=== PATIENT | male | born 1960 | race Caucasian/White ===

== ENCOUNTER 2016-11-28 20:43 | Inpatient (IN) ==
[2016-11-28] MEDS ORDERED: Ipratropium/Albuterol Neb 3 ML IH ONE (20:47)
--- NOTE | 2016-11-28 21:07 | Emergency Department Note ---
Disposition Clinical Impression: Postobstructive pneumonia, Mass of left lung, Shortness of breath, Peripheral edema Disposition: Admitted As Inpatient Condition: Fair Forms: ED Satisfaction Letter Time of Disposition: 22:34 SOB HPI - General Chief Complaint: ED Shortness of Breath/Dyspnea Stated Complaint: shortness of breath, cough Time Seen by Provider: 11/28/16 20:47 Source: EMS Limitations: no limitations Nursing Notes Reviewed: Yes Vital Signs Reviewed: Yes - History of Present Illness 56-year-old male presents emergency room for shortness of breath 6 weeks. States he has been put on 2 rounds of antibiotics one included Zithromax a few weeks ago without relief. He does have a history of COPD and smoking. He does not wear home oxygen. He was recently set up for a nebulizer at home of which she has been using periodically. He states he is developed chest pain specifically over the left anterior chest wall. He states his legs are increasing in size over the past few weeks as well. He does have a history of congestive heart failure. He denies abdominal pain. No other complaints at this time. The shortness of breath is worse with exertion. Better at rest. - Related Data Allergies Allergy/AdvReac Type Severity Reaction Status Date / Time Penicillins Allergy Difficulty Verified 11/28/16 22:07 Swallowing Constitutional: Denies: fever, chills Eyes: Reports: as per HPI ENT ED: Reports: as per HPI Cardiovascular: Reports: chest pain, edema Respiratory: Reports: cough, dyspnea, wheezes Gastrointestinal: Reports: as per HPI Genitourinary: Reports: as per HPI Musculoskeletal: Reports: as per HPI Integumentary: Reports: as per HPI Neurological: Reports: as per HPI Psychiatric: Reports: as per HPI Endocrine: Reports: as per HPI Hematological/Lymphatic: Reports: as per HPI Past Medical History - Past Medical History Medical history: Reports: arthritis, COPD, diabetes, hypertension, TIA Psychiatric history: Reports: no psych history - Social History Smoking Status: Current every day smoker Smokeless Tobacco Status: No Alcohol use: Reports: rarely Drug use: Reports: none Physical Exam - General Limitations: no limitations General appearance: alert, in no apparent distress - Head Head exam: atraumatic, normocephalic - Neck Neck exam: Present: normal inspection - Chest Chest inspection: Present: normal inspection, symmetric chest wall rise - Respiratory Respiratory exam: Present: wheezes, other (Bilateral crackles. Worse on the left side. Decreased breath sounds on the left.) - Cardiovascular Cardiovascular exam: Present: normal rhythm, tachycardia, normal heart sounds - Abdominal Exam Abdominal exam: Present: soft, Non-Tender, normal bowel sounds - Extremities Exam Extremities exam: Present: pedal edema (Bilateral, symmetrical 2+ pitting edema in the lower extremities.), joint swelling, other - Back Exam Back exam: Present: normal inspection - Neurological Exam Neurological exam: Present: alert, oriented X3 - Psychiatric Psychiatric exam: Present: normal affect, normal mood - Skin Skin exam: Present: warm, dry, intact Course Course Narrative: Patient's chest x-ray revealed a left whiteout of his left lung. Concerns obviously for post obstructive pattern. He did a CT of his chest which showed evidence of a left perihilar mass with a postobstructive pattern involving the majority of the left lung. There is multiple areas of swollen lymph nodes concerning for malignancy. I did speak with the patient about this. He thinks he has been on Zithromax and Levaquin as an outpatient. I have ordered cefepime and vancomycin. Patient will need to be admitted for further workup of this left perihilar mass Vital Signs Temperature 97.8 F 11/28/16 20:55 Pulse Rate 108 11/28/16 20:55 Respiratory Rate 20 11/28/16 20:55 Blood Pressure 118/70 11/28/16 20:55 O2 Sat by Pulse Oximetry 93 11/28/16 20:55 Temperature 97.8 F 11/28/16 20:55 Pulse Rate 108 11/28/16 20:55 Respiratory Rate 16 11/28/16 21:17 Blood Pressure 118/70 11/28/16 20:55 O2 Sat by Pulse Oximetry 90 11/28/16 21:17 Oxygen Delivery Oxygen Delivery Nasal Cannula Shortness of Breath/Dyspnea - Medical Records Medical records reviewed: Yes I reviewed the patient's medical records. - Lab Data Lab results reviewed: Yes I reviewed the patient's lab results. Result diagrams: 11/28/16 21:13 11/28/16 21:13 Lab Results 11/28/16 11/28/16 11/28/16 Range/Units 21:13 21:13 21:13 WBC 9.2 (4.3-11.1) K/mcL RBC 4.39 (4.19-5.50) M/mcL Hgb 12.9 (12.9-16.9) g/dL Hct 39.3 (37.5-50.1) % MCV 89.5 (83.0-100.0) fL MCH 29.4 (28.0-33.3) pg MCHC 32.8 (31.6-35.5) g/dL RDW 13.4 (11.5-14.5) % Plt Count 189 (140-400) K/mcL MPV 10.1 (9.4-12.4) fL Immature Gran % 0.3 (0-4) % Seg Neutrophils % 74.0 % Lymphocytes % 14.1 % Monocytes % 7.7 % Eosinophils % 3.2 % Basophils % 0.7 % Neutrophils # 6.8 (1.6-8.9) K/mcL Lymphocytes # 1.3 (0.6-4.6) K/mcL Monocytes # 0.7 (0.0-1.3) K/mcL Eosinophils # 0.3 (0.0-0.6) K/mcL Basophils # 0.1 (0.0-0.2) K/mcL PT 13.5 H (9.4-12.1) Seconds INR 1.2 APTT 26.8 (26.0-36.0) Seconds Sodium 135 L (136-145) mEq/L Potassium 4.3 (3.5-4.5) mEq/L Chloride 100 (98-109) mEq/L Carbon Dioxide 27 (19-29) mEq/L BUN 11 (8-26) mg/dL Creatinine 0.66 L (0.72-1.25) mg/dL Est GFR ( Amer) > 60 (> 60) Est GFR (Non-Af Amer) > 60 (> 60) BUN/Creatinine Ratio 17 (6-26) Glucose 110 H (70-99) mg/dL Calculated Osmolality 280 (280-300) Calcium 8.5 L (8.6-10.8) mg/dL Troponin I (0-0.03) ng/mL B-Natriuretic Peptide (0-100) pg/mL 11/28/16 11/28/16 Range/Units 21:13 21:13 WBC (4.3-11.1) K/mcL RBC (4.19-5.50) M/mcL Hgb (12.9-16.9) g/dL Hct (37.5-50.1) % MCV (83.0-100.0) fL MCH (28.0-33.3) pg MCHC (31.6-35.5) g/dL RDW (11.5-14.5) % Plt Count (140-400) K/mcL MPV (9.4-12.4) fL Immature Gran % (0-4) % Seg Neutrophils % % Lymphocytes % % Monocytes % % Eosinophils % % Basophils % % Neutrophils # (1.6-8.9) K/mcL Lymphocytes # (0.6-4.6) K/mcL Monocytes # (0.0-1.3) K/mcL Eosinophils # (0.0-0.6) K/mcL Basophils # (0.0-0.2) K/mcL PT (9.4-12.1) Seconds INR APTT (26.0-36.0) Seconds Sodium (136-145) mEq/L Potassium (3.5-4.5) mEq/L Chloride (98-109) mEq/L Carbon Dioxide (19-29) mEq/L BUN (8-26) mg/dL Creatinine (0.72-1.25) mg/dL Est GFR ( Amer) (> 60) Est GFR (Non-Af Amer) (> 60) BUN/Creatinine Ratio (6-26) Glucose (70-99) mg/dL Calculated Osmolality (280-300) Calcium (8.6-10.8) mg/dL Troponin I 0.03 (0-0.03) ng/mL B-Natriuretic Peptide 84 (0-100) pg/mL - Radiology Data Radiology results reviewed: Yes I reviewed the patient's radiology results. - EKG Data EKG attestation: Yes I reviewed and interpreted this EKG. EKG results narrative: EKG shows a rate of 106. Sinus tachycardia. Normal axis. IA interval 150. QRS 96. Corrected QT 390. No acute changes.
[2016-11-28] MEDS ORDERED: Furosemide 40 MG/4 ML VIAL IVP ONE (21:14)
[2016-11-28 21:21] LABS: Basophils # 0.1 K/mcL (0.0-0.2); Basophils % 0.7 %; Eosinophils # 0.3 K/mcL (0.0-0.6); Eosinophils % 3.2 %; Hematocrit 39.3 % (37.5-50.1); Hemoglobin 12.9 g/dL (12.9-16.9); Immature Granulocytes % 0.3 % (0-4); Lymphocytes # 1.3 K/mcL (0.6-4.6); Lymphocytes % 14.1 %; Mean Corpuscular HGB Conc 32.8 g/dL (31.6-35.5); Mean Corpuscular Hemoglobin 29.4 pg (28.0-33.3); Mean Corpuscular Volume 89.5 fL (83.0-100.0); Mean Platelet Volume 10.1 fL (9.4-12.4); Monocytes # 0.7 K/mcL (0.0-1.3); Monocytes % 7.7 %; Neutrophils # 6.8 K/mcL (1.6-8.9); Platelet Count 189 K/mcL (140-400); Red Blood Count 4.39 M/mcL (4.19-5.50); Red Cell Distribution Width 13.4 % (11.5-14.5)
[2016-11-28 21:25] LABS: INR 1.2; Prothrombin Time 13.5 Seconds (9.4-12.1)
[2016-11-28 21:27] LABS: Activated Partial Thrombo Time 26.8 Seconds (26.0-36.0)
[2016-11-28 21:34] LABS: BUN/Creatinine Ratio 17 (6-26); Blood Urea Nitrogen 11 mg/dL (8-26); Calcium 8.5 mg/dL (8.6-10.8); Carbon Dioxide 27 mEq/L (19-29); Chloride 100 mEq/L (98-109); Glucose 110 mg/dL (70-99); Osmolality,Calculated 280 (280-300); Potassium 4.3 mEq/L (3.5-4.5); Sodium 135 mEq/L (136-145); eGFR For African Americans > 60 (> 60); eGFR For Non-African Americans > 60 (> 60)
[2016-11-28] MEDS ORDERED: Vancomycin 1,000 MG in D5% in Water 250 ML IVPB ONE (22:30)
[2016-11-29] MEDS ORDERED: Cefepime HCl 2,000 MG in D5% in Water (Mini-Bag+) 100 ML IVPB SCH ×3 (00:08→08:00)
[2016-11-29] MEDS ORDERED: Naloxone 0.4 MG/ML INJ IVP PRN (00:24)
[2016-11-29] MEDS ORDERED: Ondansetron ODT 4 MG TAB.RAPDIS SL PRN (00:24)
[2016-11-29] MEDS ORDERED: *HR* Morphine 2 MG/ML SYRINGE IVP PRN (00:24)
[2016-11-29] MEDS ORDERED: D5% in Water 1,000 ML IVC PRN (00:26)
[2016-11-29] MEDS ORDERED: Dextrose Gel 15 GM PO PRN ×2 (00:26)
[2016-11-29] MEDS ORDERED: *HR* Dextrose 50 % in Water (Syg) 50 ML SYRINGE IVP PRN (00:26)
--- NOTE | 2016-11-29 00:36 | Internal Med History&Physical ---
<Toan Ye - Last Filed: 11/29/16 00:33> Date of Encounter: 11/29/16 Time of Encounter: 23:50 Assessment and Plan (1) Postobstructive pneumonia Current visit: Yes Status: Acute Patient presented to the emergency department with shortness of breath and had been treated 2-3 times in the outpatient setting for pneumonia with at least 2 rounds of antibiotics. -CT of the chest performed in the emergency department demonstrates large hilar mass on the left side causing postobstructive pulmonary findings and hilar adenopathy. - Patient presents with dyspnea and requires 2 L of nasal Oxygen. Not oxygen dependent at home. Plan: - Admit to general medical floor - Continue vancomycin and cefepime for antibiotic coverage - Continue breathing treatments and treatment of underlying COPD - Continue nasal cannula oxygen and wean as tolerated - Consult to pulmonology for evaluation of hilar mass. (2) Mass of left lung Current visit: Yes Status: Acute Left hilar lung mass causing obstructive findings on chest CT with hilar adenopathy. Highly suspicious for cancer with likely malignancy given that the patient has a 40+ pack year of smoking and his current every day smoker. - Patient mentions that there was a spot identified on his brain with an MRI performed in June. No results available at this time for evaluation Plan: - Consult to pulmonology, will likely need bronchoscopy for needle biopsies. - CT of the chest, CT with contrast of brain, abdomen and pelvis. - (3) Type 2 diabetes mellitus Current visit: Yes Status: Acute Known type II diabetic. Plan: - Before meals at bedtime glucose checks - Sliding scale insulin - Diabetic diet when able to eat, currently nothing by mouth. Qualifiers: Qualified Code(s): E11.9 - Type 2 diabetes mellitus without complications (4) Peripheral edema Current visit: Yes Status: Acute Patient has new findings of bilateral pedal edema. This may be due to vascular obstruction from lung mass. Also patient has high probability for pulmonary embolism. Plan: - Echocardiogram for evaluation for right heart strain and ejection fraction - CT of the chest for evaluation for possible pulmonary embolism - Low sodium diet (5) COPD (chronic obstructive pulmonary disease) Current visit: Yes Status: Acute Known history of COPD. Continue home inhalers. Qualifiers: COPD type: COPD with acute lower respiratory infection Qualified Code(s): J44.0 - Chronic obstructive pulmonary disease with acute lower respiratory infection (6) Tobacco abuse Current visit: Yes Status: Acute Current every day smoker, 40+ pack year history. Nicotine patch when necessary. (7) At high risk for pulmonary embolism Current visit: Yes Status: Acute Patient is at high risk for pulmonary embolism with left upper lobe lung mass, shortness of breath, tachycardia, decreased blood pressure, CT of the chest demonstrating enlarged pulmonary vasculature. Wells score of 5 Plan: - CTA of the chest - Heparin Drip until PE ruled out (8) DVT prophylaxis Current visit: Yes Status: Acute Patient on heparin drip. Internal Medicine - H&P: HPI Chief complaint: shortness of breath Admitted From: Emergency Dept History of present illness: Mr. Miller is a 56 year old male significant past medical history of tobacco abuse, COPD, type 2 diabetes and hypertension presented to the emergency department today with continued shortness of breath after being treated for pneumonia twice in the outpatient setting. Mr. Miller says that he has been short of breath and coughing for roughly 1 month. He presented to his primary care provider who started him on antibiotics and steroids for treatment of his symptoms without resolution. He presented for follow-up and then presented to the urgent care just recently where he had a chest x-ray which demonstrated left -sided pneumonia and a lung mass. The patient said his antibiotics were not improving his symptoms he continued to feel very short of breath uses inhalers his shortness of breath but improved but he became ever more short of breath with activity. He feels that his heart is racing, he has been continually coughing and his motivation has decreased significantly. He is a chronic every day smoker and said that he has not even been inhaling only puffing on his cigarettes. He denies any fevers, chills or sweating, abdominal pain nausea vomiting diarrhea or constipation. He has noticed swelling in his bilateral lower extremities mainly around the ankles over the last week. He says that his mother who lives with them noticed that his face is been swelling. He understands the findings on the CT of the chest this evening in the emergency department and said that if it is cancer and there was no improvement that he would continue smoking but if he has a chance to quit smoking. He did provide a useful piece of information saying that he was having headaches since the start of the year and was fitted for hearing aids and at that time he mentioned it to the physician who ordered an MRI of the brain and noticed a spot on his brain. He has had some substernal chest burning which is related with acid reflux over the last 2-3 weeks. He said that he has been taking Maalox frequently throughout the day. Past Med Surg Social Fam HX - Past Medical History Medical history: arthritis, COPD, diabetes, hypertension, TIA Psychiatric history: no psych history - Past Surgical History Surgical History: appendectomy - Social History Smoking Status: Current every day smoker Smokeless Tobacco Status: No Alcohol use: rarely Drug use: none - Family History Father Living Status: Hx Family Neurologic Disorders: Yes (Stroke) Hx Family Psychosocial Disorders: Yes (Alcoholic) Internal Medicine - H&P: Meds Adalimumab [Humira Psoriasis] 40 mg SQ Q2W 11/28/16 [History] Albuterol Sulfate [Albuterol Inhaler] 2 puff IH Q4H PRN 11/28/16 [History] Allopurinol [Zyloprim 300 MG] 300 mg PO DAILY 11/28/16 [History] Aspirin 325 mg PO DAILY 11/28/16 [History] Carvedilol [Coreg] 6.25 mg PO BIDWM 11/28/16 [History] Finasteride [Proscar] 5 mg PO DAILY 11/28/16 [History] Fluticasone Propionate Nasal [Flonase] 50 mcg NS BID 11/28/16 [History] Hydroxychloroquine [Plaquenuil] 200 mg PO DAILY 11/28/16 [History] Insulin Glargine,Hum.rec.anlog [Toujeo Solostar] 50 units SQ QPM 11/28/16 [ History] Ipratropium/Albuterol Neb [Duoneb] 3 ml IH Q6HR 11/28/16 [History] Leflunomide [Arava] 20 mg PO DAILY 11/28/16 [History] Lisinopril [Zestril] 20 mg PO BID 11/28/16 [History] Metformin HCl [Glucophage] 1,000 mg PO BID 11/28/16 [History] Simvastatin [Zocor] 20 mg PO HS 11/28/16 [History] Umeclidinium Brm/Vilanterol Tr [Anoro Ellipta 62.5-25 Mcg INH] 1 each IH DAILY 11/28/16 [History] amLODIPine [Norvasc] 5 mg PO DAILY 11/28/16 [History] Allergies Penicillins Allergy (Verified 11/28/16 22:07) Difficulty Swallowing All Systems PM: A 10-system review of systems was performed and is negative for pertinent findings except as documented above in the HPI. - Constitutional Constitutional: fatigue, malaise, no chills, no fever(s), no night sweats - EENT Eyes: no change in vision, no discharge, no pain, no photophobia Ears: decreased hearing, no ear discharge, no ear pain, no tinnitus Nose, mouth and throat: other (acial swelling), no dysphagia, no nasal discharge , no neck pain, no sore throat - Cardiovascular Cardiovascular ROS IM: dyspnea, dyspnea on exertion, edema (Bilateral ankles), no chest pain, no diaphoresis, no lightheadedness, no palpitations, no syncope - Respiratory Respiratory: cough, dyspnea, dyspnea on exertion, wheezing, no hemoptysis, no excessive phlegm production - Gastrointestinal Gastrointestinal: heartburn, no abdominal pain, no diarrhea, no hematemesis, no hematochezia, no melena, no nausea, no vomiting - Musculoskeletal Musculoskeletal ROS IM: no numbness, no tingling - Integumentary Integumentary IM: no rash, no unusual bruising - Neurological Neurological ROS: no confusion, no convulsions, no focal weakness, no numbness, no tingling, no tremor(s) - Hematologic/Lymphatic Hematologic/Lymphatic: no easy bruising - Constitutional Vitals: Temp Pulse Resp BP Pulse Ox 97.8 F 103 22 99/67 90 11/28/16 20:55 11/28/16 22:33 11/29/16 00:07 11/29/16 00:07 11/28/16 22:33 General appearance: Present: A&O X 3 Exam: General: Patient alert, awake, oriented 3, interactive, in no acute distress HEENT: Diffuse facial swelling, facial redness, atraumatic, pupils equal reactive to light, nasal cavity patent and open septum median position, oral mucosa moist, uvula midline, neck supple trachea midline, there is left neck and supraclavicular fullness no thyromegaly. Chest: Symmetric bilateral correlating with respiratory effort, effort nonlabored. Cardiac: Regular rate and rhythm, positive S1 and S2. no bruits appreciated bilateral carotids, Radial pulses 2+ bilateral, posterior tibial and dorsal pedal pulses 2+ bilateral. Respiratory: Diminished breath sounds in left upper lung field, rhonchi and expiratory wheezing in the left mid to lower lung levine, diffuse expiratory wheezing throughout bilateral lungs Abdomen: Soft, nontender, positive bowel sounds, no palpable masses appreciated on examination Extremities: Symmetric bilateral, bilateral lower extremities with trace pedal edema patient moving all 4 extremities spontaneously. Neurologic: No focal deficits appreciated on examination. Face symmetric, muscle strength symmetric bilateral upper and lower extremities. Internal Med - H&P Results - Labs CBC & Chem 7: 11/28/16 21:13 11/28/16 21:13 <Steve Harkins - Last Filed: 11/29/16 07:28> Date of Encounter: 11/29/16 Internal Medicine - H&P: HPI History of present illness: Mr. Miller is a 56 year old male All Systems PM: A 10-system review of systems was performed and is negative for pertinent findings except as documented above in the HPI. - Constitutional Vitals: Temp Pulse Resp BP Pulse Ox 98.3 F 95 18 97/60 93 11/29/16 06:58 11/29/16 06:58 11/29/16 06:58 11/29/16 06:58 11/29/16 06:58 Internal Med - H&P Results - Labs CBC & Chem 7: 11/29/16 02:00 11/29/16 02:00 Labs: Short CBC 11/29/16 Range/Units 02:00 WBC 8.0 (4.3-11.1) K/mcL Hgb 12.8 L (12.9-16.9) g/dL Hct 39.1 (37.5-50.1) % Plt Count 182 (140-400) K/mcL Neutrophils # 5.6 (1.6-8.9) K/mcL BMP 11/29/16 02:00 Sodium 136 Potassium 4.1 Chloride 99 Carbon Dioxide 29 BUN 11 Creatinine 0.71 L Glucose 113 H Calcium 8.5 L Cardiac Enzymes 11/29/16 Range/Units 02:00 Troponin I 0.02 (0-0.03) ng/mL Liver Function 11/29/16 Range/Units 02:00 Total Bilirubin 0.5 (0.2-1.2) mg/dL AST 20 (5-34) Units/L ALT 20 (0-55) Units/L Alkaline Phosphatase 56 (38-126) Units/L Albumin 2.5 L (3.5-5.0) g/dL - Impressions ITS Impressions Chest CTA 11/29/16 00:18 IMPRESSION: No evidence of pulmonary embolism. Dense masslike consolidation throughout the left lung appears slightly worse than on the previous exam. This is compatible with the history of lung cancer combined with postobstructive pneumonitis. There is associated mediastinal lymphadenopathy. Continued CT surveillance recommended. D/ / Nehemias Aldrich MD / Nehemias Aldrich MD Interpreting Provider: Nehemias Aldrich MD Abdomen/Pelvis CT 11/29/16 00:19 IMPRESSION: 1. No acute intra-abdominal or intrapelvic process. 2. No convincing evidence of intra-abdominal or intrapelvic metastatic disease. 3. Dense left basilar consolidation better visualized on the dedicated chest CT. Please refer to the chest CT report for further details. D/ / Nehemias Aldrich MD / Nehemias Aldrich MD Interpreting Provider: Nehemias Aldrich MD Head CT 11/29/16 00:19 IMPRESSION: No acute intracranial abnormality. Specifically, no CT scan evidence of intracranial metastatic disease. MRI is more sensitive and specific for detection of subtle metastatic deposits if clinically warranted. D/ / Nehemias Aldrich MD / Nehemias Aldrich MD Interpreting Provider: Nehemias Aldrich MD - Attending Attestation I examined this patient and my medical decision-making was reviewed with the Resident Physician. I agree with the documented findings, disposition and treatment plan as described
[2016-11-29] MEDS ORDERED: Vancomycin 1,750 MG in D5% in Water 250 ML IVPB SCH (01:00)
[2016-11-29] MEDS: 0.9 % Sodium Chloride 1,000 ML IVC SCH ×3 (01:50→15:42)
[2016-11-29 02:27] LABS: Basophils # 0.1 K/mcL (0.0-0.2); Eosinophils # 0.3 K/mcL (0.0-0.6); Eosinophils % 3.9 %; Hematocrit 39.1 % (37.5-50.1); Hemoglobin 12.8 g/dL (12.9-16.9); Immature Granulocytes % 0.6 % (0-4); Immature Platelets 4.1 % (1.1-6.1); Lymphocytes # 1.2 K/mcL (0.6-4.6); Lymphocytes % 15.5 %; Mean Corpuscular HGB Conc 32.7 g/dL (31.6-35.5); Mean Corpuscular Hemoglobin 29.4 pg (28.0-33.3); Mean Corpuscular Volume 89.9 fL (83.0-100.0); Mean Platelet Volume 10.4 fL (9.4-12.4); Monocytes # 0.7 K/mcL (0.0-1.3); Monocytes % 8.5 %; Neutrophils # 5.6 K/mcL (1.6-8.9); Platelet Count 182 K/mcL (140-400); Red Blood Count 4.35 M/mcL (4.19-5.50); Red Cell Distribution Width 13.4 % (11.5-14.5); Segmented Neutrophils % 70.5 %
[2016-11-29 02:32] LABS: INR 1.2; Prothrombin Time 13.2 Seconds (9.4-12.1)
[2016-11-29 02:35] LABS: Activated Partial Thrombo Time 26.8 Seconds (26.0-36.0)
[2016-11-29 02:46] LABS: Alanine Aminotransferase 20 Units/L (0-55); Albumin 2.5 g/dL (3.5-5.0); Albumin/Globulin Ratio 0.6 (1.1-2.2); Alkaline Phosphatase 56 Units/L (38-126); Aspartate Amino Transferase 20 Units/L (5-34); BUN/Creatinine Ratio 15 (6-26); Bilirubin,Total 0.5 mg/dL (0.2-1.2); Blood Urea Nitrogen 11 mg/dL (8-26); Calcium 8.5 mg/dL (8.6-10.8); Carbon Dioxide 29 mEq/L (19-29); Chloride 99 mEq/L (98-109); Chol/HDL Ratio 2.5 (0-4.9); Cholesterol 105 mg/dL (< 200); Globulin 4.1 g/dL (2.4-3.5); Glucose 113 mg/dL (70-99); HDL Cholesterol 42 mg/dL (40-59); LDL Cholesterol,Calculated 46 mg/dL (0-99); Magnesium 1.7 mg/dL (1.6-2.6); Osmolality,Calculated 282 (280-300); Phosphorous 3.2 mg/dL (2.3-4.7); Potassium 4.1 mEq/L (3.5-4.5); Sodium 136 mEq/L (136-145); Total Protein 6.6 g/dL (6.0-8.3); Triglycerides 86 mg/dL (< 150); eGFR For African Americans > 60 (> 60); eGFR For Non-African Americans > 60 (> 60)
[2016-11-29] MEDS ORDERED: Ipratropium/Albuterol Neb 3 ML ONE (03:44)
[2016-11-29] MEDS: Ipratropium/Albuterol Neb 3 ML IH SCH ×5 (03:52→22:42)
[2016-11-29] MEDS: *HR* Heparin 5,000 UNIT/ML VIAL SQ SCH ×3 (06:12→21:27)
--- NOTE | 2016-11-29 06:33 | Pulmonology Consult Note ---
Date of Encounter: 11/29/16 Time of Encounter: 06:33 Assessment and Plan (1) Mass of left lung Current Visit: Yes Status: Acute Impression: 56-year-old gentleman who is presenting with recurrent pneumonia with evidence of large lung mass likely postobstructive pneumonia and COPD exacerbation. From standpoint of lung mass lung cancer remains high in the differential alternatively this could represent infection although much less likely. Currently immunosuppression and tobacco abuse put him at increased risk for development of primary lung malignancy thus far no evidence of metastatic disease but there is a questionable report of an MRI that was performed with a spot in the brain per the patient we should attempt to obtain this report and see if it is consistent with metastatic disease. We will plan to proceed with bronchoscopy with endobronchial ultrasound for further clarification of airway anatomy evidence of endobronchial lesions and fine-needle aspiration of lung mass if nothing endobronchially can be sampled. This will also clarify if patient would be candidate for interventional procedure for alleviation of obstruction. The obstruction appears to have led to recurrent PNA with resultant COPD exacerbation. I have also counseled the patient on the need for smoking cessation Recommendations: NPO at OH for Bronch tomorrow with anesthesia. Timing unknown at this time. CBC/ CMP/INR/ECG if not done Cont ABx for at least 7 days IV Solu-Medrol 40 mg 3 times a day which can be transitioned to enteral prednisone over the next 24-48 hours. Continue bronchodilators I would schedule Symbicort 2 puffs twice daily (160/4.5 ) I have encouraged tobacco cessation and Nicotine replacement in the form of patch Outpatient polysomnogram Patient will need either walking pulse oximetry study or overnight oximetry study prior to discharge to evaluate for the need of supplemental oxygen DVT prophylaxis with low molecular weight heparin unless other contraindication Thank you for the consult we will continue to follow (2) COPD with acute exacerbation Current Visit: Yes Status: Acute (3) Postobstructive pneumonia Current Visit: Yes Status: Acute (4) COPD (chronic obstructive pulmonary disease) Current Visit: Yes Status: Acute Qualifiers: COPD type: COPD with acute lower respiratory infection Qualified Code(s): J44.0 - Chronic obstructive pulmonary disease with acute lower respiratory infection (5) Tobacco abuse Current Visit: Yes Status: Acute (6) DVT prophylaxis Current Visit: Yes Status: Acute History of Present Illness Consult date: 11/29/16 Requesting physician: Toan Ye Reason for consult: lung mass Chief complaint: Shortness of Breath History of present illness: This is a very pleasant 56-year-old gentleman with a past medical history of COPD rheumatoid arthritis on amiodarone therapy including Humira and hydroxychloroquine and Arava who presented for shortness of breath. He states that he has been treated for pneumonia twice over the last month and despite antimicrobial therapy symptoms have returned including nonproductive cough increased shortness of breath wheezing and fatigue. He has had one M episode of hemoptysis over the last month denies significant weight loss has frequent night sweats but has for many years. As part of outpatient patient workup a chest x-ray was performed which was concerning for left-sided pneumonia and possible left-sided mass follow-up CT scan was notable for a large left sided hilar lung mass with compression atelectasis and possible postobstructive pneumonia on this admission because of tachycardia and hypoxia he was sent for a CT angiogram which was negative for filling defect but was notable for solar findings as noncontrasted CT scan of the thorax performed a few days earlier. He has been started on broad-spectrum antimicrobials steroids and bronchodilators. Further workup including CT of the abdomen and pelvis and CT of the head were not suggestive of metastatic disease He is been diagnosed with COPD and was using twice daily Qvar with good results along with a short acting beta agonist as needed he was recently switched over to Asmanex and this appears to be less effective for antral symptomatology he does have a strong component of seasonal allergy which exacerbates his breathing difficulty. He endorses poor sleep quality efficiency daytime hypersomnolence frequent napping he is never gone for a formal sleep evaluationHe is a long-time smoker since the age of 13 about 1 pack a day. 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 He does not keep any exotic pets he has not traveled recently Past [facility] HX - Past Medical History Medical history: arthritis, COPD, diabetes, hypertension, TIA Psychiatric history: no psych history - Past Surgical History Surgical History: appendectomy - Social History Smoking Status: Current every day smoker Smokeless Tobacco Status: No Alcohol use: rarely Drug use: none - Family History Father Living Status: Hx Family Neurologic Disorders: Yes (Stroke) Hx Family Psychosocial Disorders: Yes (Alcoholic) Medications and Allergies Adalimumab [Humira Psoriasis] 40 mg SQ Q2W 11/28/16 [History] Albuterol Sulfate [Albuterol Inhaler] 2 puff IH Q4H PRN 11/28/16 [History] Allopurinol [Zyloprim 300 MG] 300 mg PO DAILY 11/28/16 [History] Aspirin 325 mg PO DAILY 11/28/16 [History] Carvedilol [Coreg] 6.25 mg PO BIDWM 11/28/16 [History] Finasteride [Proscar] 5 mg PO DAILY 11/28/16 [History] Fluticasone Propionate Nasal [Flonase] 50 mcg NS BID 11/28/16 [History] Hydroxychloroquine [Plaquenuil] 200 mg PO DAILY 11/28/16 [History] Insulin Glargine,Hum.rec.anlog [Toujeo Solostar] 50 units SQ QPM 11/28/16 [ History] Ipratropium/Albuterol Neb [Duoneb] 3 ml IH Q6HR 11/28/16 [History] Leflunomide [Arava] 20 mg PO DAILY 11/28/16 [History] Lisinopril [Zestril] 20 mg PO BID 11/28/16 [History] Metformin HCl [Glucophage] 1,000 mg PO BID 11/28/16 [History] Simvastatin [Zocor] 20 mg PO HS 11/28/16 [History] Umeclidinium Brm/Vilanterol Tr [Anoro Ellipta 62.5-25 Mcg INH] 1 each IH DAILY 11/28/16 [History] amLODIPine [Norvasc] 5 mg PO DAILY 11/28/16 [History] Allergies Penicillins Allergy (Verified 11/28/16 22:07) Difficulty Swallowing All Systems: A 10-system review of systems was performed and is negative for pertinent findings except as documented above in the HPI. Physical Examination Vital Signs: Vital Signs, Last 4 Hours Temp Pulse Resp BP Pulse Ox 11/29/16 03:57 18 92 11/29/16 03:52 98.7 F 102 18 109/67 93 General appearance: no acute distress Eyes: nonicteric ENT: oropharynx moist Mallampati (class): 2 Neck: supple Effort: mildly labored Inspection: normal Auscultation: bilateral: diminished breath sounds, wheezes (Bilateral expiratory wheeze with prolonged expiratory phase), rhonchi (Scattered rhonchi in all lung levine) Cardiovascular: regular rate and rhythm Gastrointestinal: normoactive bowel sounds, non-tender Integumentary: normal Extremities: edema (Trace nonpitting lower extremity edema) Musculoskeletal: no deformities normal mental status, non-focal exam mood appropriate Results - Laboratory Findings CBC and BMP: 11/29/16 02:00 11/29/16 02:00 PT/INR, D-dimer PT 13.2 Seconds (9.4-12.1) H 11/29/16 02:00 Abnormal lab findings: Abnormal lab results Hgb 12.8 g/dL (12.9-16.9) L 11/29/16 02:00 PT 13.2 Seconds (9.4-12.1) H 11/29/16 02:00 Creatinine 0.71 mg/dL (0.72-1.25) L 11/29/16 02:00 Glucose 113 mg/dL (70-99) H 11/29/16 02:00 POC Glucose 112 (58-89) H 11/29/16 05:41 Calcium 8.5 mg/dL (8.6-10.8) L 11/29/16 02:00 Albumin 2.5 g/dL (3.5-5.0) L 11/29/16 02:00 Globulin 4.1 g/dL (2.4-3.5) H 11/29/16 02:00 Albumin/Globulin Ratio 0.6 (1.1-2.2) L 11/29/16 02:00 - Diagnostic Findings Chest x-ray: report reviewed, image reviewed CT scan - chest: report reviewed, image reviewed - Clinical Findings Intake & Output: Intake & Output 11/28/16 11/28/16 11/29/16 15:59 23:59 07:59 Intake Total 100 / 100 Output Total 0 / 0 Balance 100 / 100 Weight 121.9 kg Consult Discharge Plan - Plan Referrals: Dionisio Dominique DO [Primary Care Provider] -
[2016-11-29] MEDS ORDERED: Mag Hydrox/Al Hydrox/Simeth 30 ML UDC PO PRN (07:53)
[2016-11-29] MEDS: Pantoprazole 40 MG VIAL IVP SCH (08:02)
[2016-11-29] MEDS: amLODIPine 5 MG TABLET PO SCH ×2 (08:03→08:32)
[2016-11-29] MEDS: Aspirin 325 MG TABLET PO SCH (08:03)
[2016-11-29] MEDS: Finasteride 5 MG TABLET PO SCH (08:03)
[2016-11-29] MEDS: Insulin LISPRO 300 UNITS/3 ML VIAL SQ SCH ×3 (08:04→17:01)
[2016-11-29] MEDS: Fluticasone Propionate Nasal 50 MCG/SPRAY BOTTLE NS SCH ×2 (08:07→21:26)
[2016-11-29] MEDS: Acetaminophen 325 MG TABLET PO PRN (08:17)
[2016-11-29] MEDS ORDERED: Vancomycin 1,750 MG in D5% in Water 500 ML IVPB SCH (09:00)
[2016-11-29] MEDS ORDERED: (Leflunomide [Arava] 20 MG) PO SCH (09:00)
[2016-11-29] MEDS: Budesonide/Formoterol 160/4.5 MDI IH SCH ×2 (10:29→22:42)
[2016-11-29] MEDS: MethylPREDNISolone 40 MG/ML VIAL IVP SCH ×2 (12:16→20:00)
--- NOTE | 2016-11-29 12:20 | Electrocardiograph Report ---
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
[2016-11-29] MEDS: Insulin DETEMIR 100 UNIT/ML X5UNITS SQ SCH ×2 (13:38→21:27)
[2016-11-29] MEDS: Levofloxacin 750 MG/150 ML 750 MG/150 ML BAG IVPB SCH (13:39)
[2016-11-29] MEDS ORDERED: Aminoglycoside Consult 1 EACH MC ONE (15:03)
--- NOTE | 2016-11-29 15:44 | Internal Med Progress Note ---
Date of Encounter: 11/29/16 Time of Encounter: 15:42 - Assessment and plan (1) COPD with acute exacerbation Current Visit: Yes Status: Acute Assessment and plan: Acute COPD exacerbation secondary to postobstructive pneumonia Stop vancomycin and cefepime Start Levaquin, continue Solu-Medrol IV for COPD exacerbation Oxygen therapy Bronchoscopy (2) Mass of left lung Current Visit: Yes Status: Acute Assessment and plan: -CT of the chest performed in the emergency department demonstrates large hilar mass on the left side causing postobstructive pulmonary findings and hilar adenopathy. Pulmonary service consulted, will keep nothing by mouth for bronchoscopy tomorrow (3) Postobstructive pneumonia Current Visit: Yes Status: Acute Assessment and plan: As stated above (4) Type 2 diabetes mellitus Current Visit: Yes Status: Acute Assessment and plan: Continue insulin sliding scale Qualifiers: Diabetes mellitus complication status: without complication Diabetes mellitus fdc insulin use: with intermediate frame tender use Qualified Code(s): E11.9 - Type 2 diabetes mellitus without complications; Z79.4 - retirement (current) use of insulin (5) Tobacco abuse Current Visit: Yes Status: Acute Assessment and plan: Smoking cessation counseling. Nicotine patch offered (6) Rheumatoid arthritis Current Visit: Yes Status: Acute Assessment and plan: Hold Humira, Plaquenil, Areva Qualifiers: Rheumatoid arthritis location: unspecified site Rheumatoid factor presence : unspecified presence Qualified Code(s): M06.9 - Rheumatoid arthritis, unspecified - Subjective Interval history: Physical Lesher of breath, complaining of yellowish phlegm production, denies any abdominal pain, no dysuria, no chest pain or fever - Constitutional Vitals: Temp Pulse Resp BP Pulse Ox 97.9 F 98 20 103/67 94 11/29/16 14:57 11/29/16 14:57 11/29/16 14:57 11/29/16 14:57 11/29/16 14:57 General appearance: Present: A&O X 3 - Head Head exam: Present: atraumatic, normocephalic - Eye Eye exam: Present: PERRL, conjuntiva pink, sclera anicteric Pupils: Present: PERRL - Neck Neck exam general surgery: Present: supple, trachea midline. Absent: lymphadenopathy - Respiratory Respiratory exam: Present: CTAB, wheezes (Minimal wheezing). Absent: accessory muscle use, rales, rhonchi - Cardiovascular Cardiovascular exam: Present: RRR, +S1, +S2. Absent: diastolic murmur, gallop, rubs, systolic murmur - GI/Abdominal GI/Abdominal exam: Present: normal bowel sounds, soft, no peritoneal signs. Absent: distended, tenderness - Extremities Exam Extremities exam: Present: warm, radial pulses palpable and symetrical. Absent : calf tenderness, cyanotic, pedal edema - Neurological Exam Neurological exam: Present: CN II-XII intact, oriented X3, no focal deficits. Absent: pronater drift, facial droop, speech deficit - Skin Skin exam: Present: dry, intact Internal Medicine: Result - Labs CBC & Chem 7: 11/29/16 02:00 11/29/16 02:00 - ABG Interpretation ABG results: PT/INR, D-dimer PT 13.2 Seconds (9.4-12.1) H 11/29/16 02:00 Consult Discharge Plan - Plan Referrals: Dionisio Dominique DO [Primary Care Provider] -
[2016-11-29] MEDS: Nicotine 14 MG PATCH.TD24 TD SCH (17:24)
[2016-11-29] MEDS ORDERED: Insulin LISPRO 300 UNITS/3 ML VIAL SQ SCH (21:00)
[2016-11-30] MEDS: 0.9 % Sodium Chloride 1,000 ML IVC SCH (01:55)
[2016-11-30] MEDS: MethylPREDNISolone 40 MG/ML VIAL IVP SCH ×2 (03:42→15:05)
[2016-11-30] MEDS: Ipratropium/Albuterol Neb 3 ML IH SCH ×3 (03:56→16:31)
[2016-11-30 05:03] LABS: Hematocrit 38.7 % (37.5-50.1); Hemoglobin 12.3 g/dL (12.9-16.9); Mean Corpuscular HGB Conc 31.8 g/dL (31.6-35.5); Mean Corpuscular Hemoglobin 28.7 pg (28.0-33.3); Mean Corpuscular Volume 90.4 fL (83.0-100.0); Mean Platelet Volume 10.6 fL (9.4-12.4); Platelet Count 172 K/mcL (140-400); Red Blood Count 4.28 M/mcL (4.19-5.50); Red Cell Distribution Width 13.1 % (11.5-14.5)
[2016-11-30 05:17] LABS: BUN/Creatinine Ratio 16 (6-26); Blood Urea Nitrogen 12 mg/dL (8-26); Calcium 8.2 mg/dL (8.6-10.8); Carbon Dioxide 29 mEq/L (19-29); Chloride 102 mEq/L (98-109); Glucose 255 mg/dL (70-99); Osmolality,Calculated 290 (280-300); Potassium 4.6 mEq/L (3.5-4.5); Sodium 136 mEq/L (136-145); eGFR For African Americans > 60 (> 60); eGFR For Non-African Americans > 60 (> 60)
[2016-11-30] MEDS: *HR* Heparin 5,000 UNIT/ML VIAL SQ SCH ×2 (05:49→15:40)
[2016-11-30] MEDS: Fluticasone Propionate Nasal 50 MCG/SPRAY BOTTLE NS SCH (08:55)
[2016-11-30] MEDS ORDERED: 0.9 % Sodium Chloride 1,000 ML IVC SCH (08:55)
[2016-11-30] MEDS: Levofloxacin 750 MG/150 ML 750 MG/150 ML BAG IVPB SCH (08:56)
[2016-11-30] MEDS: Pantoprazole 40 MG VIAL IVP SCH (08:56)
--- NOTE | 2016-11-30 08:58 | Internal Med Progress Note ---
Date of Encounter: 11/30/16 Time of Encounter: 08:56 - Assessment and plan (1) COPD with acute exacerbation Current Visit: Yes Status: Acute Assessment and plan: Acute COPD exacerbation secondary to postobstructive pneumonia Stopped vancomycin and cefepime Continue Levaquin day 2, continue Solu-Medrol IV for COPD exacerbation Oxygen therapy Bronchoscopy scheduled (2) Mass of left lung Current Visit: Yes Status: Acute Assessment and plan: -CT of the chest performed in the emergency department demonstrates large hilar mass on the left side causing postobstructive pulmonary findings and hilar adenopathy. 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 Nicotine patch offered (6) Rheumatoid arthritis Current Visit: Yes Status: Acute Assessment and plan: Hold Humira, Plaquenil, Areva Qualifiers: Rheumatoid arthritis location: unspecified site Rheumatoid factor presence : unspecified presence Qualified Code(s): M06.9 - Rheumatoid arthritis, unspecified - Subjective Interval history: Feeling less short of breath, complaining of yellowish phlegm production, denies any abdominal pain, no dysuria, no chest pain or fever - Constitutional Vitals: Temp Pulse Resp BP Pulse Ox 97.9 F 94 17 122/74 95 11/30/16 06:54 11/30/16 06:54 11/30/16 06:54 11/30/16 06:54 11/30/16 06:54 General appearance: Present: A&O X 3 - Head Head exam: Present: atraumatic, normocephalic - Eye Eye exam: Present: PERRL, conjuntiva pink, sclera anicteric Pupils: Present: PERRL - Neck Neck exam general surgery: Present: supple, trachea midline. Absent: lymphadenopathy - Respiratory Respiratory exam: Present: decreased breath sounds (Blunted breath sounds mainly on the left base with diffuse wheezing), CTAB, wheezes. Absent: accessory muscle use, rales, rhonchi - Cardiovascular Cardiovascular exam: Present: RRR, +S1, +S2. Absent: diastolic murmur, gallop, rubs, systolic murmur - GI/Abdominal GI/Abdominal exam: Present: normal bowel sounds, soft, no peritoneal signs. Absent: distended, tenderness - Extremities Exam Extremities exam: Present: warm, radial pulses palpable and symetrical. Absent : calf tenderness, cyanotic, pedal edema - Neurological Exam Neurological exam: Present: CN II-XII intact, oriented X3, no focal deficits. Absent: pronater drift, facial droop, speech deficit - Skin Skin exam: Present: dry, intact Internal Medicine: Result - Labs CBC & Chem 7: 11/30/16 04:11 11/30/16 04:11 Labs: Short CBC 11/30/16 Range/Units 04:11 WBC 4.8 (4.3-11.1) K/mcL Hgb 12.3 L (12.9-16.9) g/dL Hct 38.7 (37.5-50.1) % Plt Count 172 (140-400) K/mcL BMP 11/30/16 04:11 Sodium 136 Potassium 4.6 H Chloride 102 Carbon Dioxide 29 BUN 12 Creatinine 0.73 Glucose 255 H Calcium 8.2 L - ABG Interpretation ABG results: PT/INR, D-dimer PT 13.2 Seconds (9.4-12.1) H 11/29/16 02:00 Consult Discharge Plan - Plan Referrals: Dionisio Dominique DO [Primary Care Provider] -
[2016-11-30] MEDS: Insulin DETEMIR 100 UNIT/ML X5UNITS SQ SCH (09:01)
[2016-11-30] MEDS: Insulin LISPRO 300 UNITS/3 ML VIAL SQ SCH ×2 (09:25→13:27)
--- NOTE | 2016-11-30 10:52 | Pre-Sedation Evaluation ---
Pre-sedation evaluation - Pre-sedation checklist Date of procedure: 11/30/16 Procedure: Bronchoscopy Recent Vitals: Last Vital Signs Temp 97.9 F 11/30/16 06:54 Pulse 94 11/30/16 06:54 Resp 17 11/30/16 06:54 BP 122/74 11/30/16 06:54 Pulse Ox 95 11/30/16 06:54 H&P (including ROS) documented in medical record: Yes Previous reaction to sedatives/anesthetics: No Dietary Status: NPO after Midnight Airway Assessment: Patient can open mouth completely, TMJ function normal Dentition: No loose teeth or bridges Possible difficult airway: Yes If Yes;: Morbid obesity, Enlarged neck circumference, short neck ASA Classification *see protocol: CLASS III-Severe systemic disease Plan of Care: Pt appropriate candidate for procedure/moderate/conscious sedation , Risks/benefits of procedure/sedation discussed w/ patient/family
[2016-11-30] MEDS: Aspirin 325 MG TABLET PO SCH (11:42)
[2016-11-30] MEDS: amLODIPine 5 MG TABLET PO SCH (11:43)
[2016-11-30] MEDS: Nicotine 14 MG PATCH.TD24 TD SCH (11:43)
[2016-11-30] MEDS: Finasteride 5 MG TABLET PO SCH ×2 (11:44→15:42)
--- NOTE | 2016-11-30 12:09 | Anesthesia Evaluation PreOp ---
Date of Encounter: 11/30/16 Time of Encounter: 12:06 - Past History Planned Operation: EBUS Cardiac History: CHF (2007), HTN Pulmonary History: Smoker, Pack/yr (40+ pk/yr), COPD, Other (Left Hilar lung mass, post obstructive pneumonia) TAB CUTTER History: TIA Other Medical History: Diabetes Type II Anesthesia History: No Prior Anesthetic Complications, Past Anesthesia (Right RCR, Appy) Alcohol Use: rarely Drug use: none Medications and Allergies Adalimumab [Humira Psoriasis] 40 mg SQ Q2W 11/28/16 [History] Albuterol Sulfate [Albuterol Inhaler] 2 puff IH Q4H PRN 11/28/16 [History] Allopurinol [Zyloprim 300 MG] 300 mg PO DAILY 11/28/16 [History] Aspirin 325 mg PO DAILY 11/28/16 [History] Carvedilol [Coreg] 6.25 mg PO BIDWM 11/28/16 [History] Finasteride [Proscar] 5 mg PO DAILY 11/28/16 [History] Fluticasone Propionate Nasal [Flonase] 50 mcg NS BID 11/28/16 [History] Hydroxychloroquine [Plaquenuil] 200 mg PO DAILY 11/28/16 [History] Insulin Glargine,Hum.rec.anlog [Toujeo Solostar] 50 units SQ QPM 11/28/16 [ History] Ipratropium/Albuterol Neb [Duoneb] 3 ml IH Q6HR 11/28/16 [History] Leflunomide [Arava] 20 mg PO DAILY 11/28/16 [History] Lisinopril [Zestril] 20 mg PO BID 11/28/16 [History] Metformin HCl [Glucophage] 1,000 mg PO BID 11/28/16 [History] Simvastatin [Zocor] 20 mg PO HS 11/28/16 [History] Umeclidinium Brm/Vilanterol Tr [Anoro Ellipta 62.5-25 Mcg INH] 1 each IH DAILY 11/28/16 [History] amLODIPine [Norvasc] 5 mg PO DAILY 11/28/16 [History] Allergies Penicillins Allergy (Verified 11/28/16 22:07) Difficulty Swallowing - Meds/Allergy Pre-op Review Medications Reviewed: Yes Allergies Reviewed: Yes Beta Blockers on Current Med List: Yes If Beta Blockers taken, Date/Time (Last Dose taken): not given due to low BP Anesthesia Results - Labs 11/30/16 04:11 11/30/16 04:11 Echo 11/30/16 40-45% EF No valvular dx - Imaging EKG: report reviewed (ST) Anesthesia Exam O2 Sat Weight 116.4 kg O2 Sat by Pulse Oximetry 93 O2 Sat by Pulse Oximetry 94 O2 Sat by Pulse Oximetry 93 O2 Sat by Pulse Oximetry 95 O2 Sat by Pulse Oximetry 93 O2 Sat by Pulse Oximetry 93 O2 Sat by Pulse Oximetry 94 O2 Sat by Pulse Oximetry 93 O2 Sat by Pulse Oximetry 94 O2 Sat by Pulse Oximetry 92 O2 Sat by Pulse Oximetry 93 O2 Sat by Pulse Oximetry 94 Vital Signs Temp Pulse Resp BP Pulse Ox 97.8 F 108 20 118/70 93 11/28/16 20:55 11/28/16 20:55 11/28/16 20:55 11/28/16 20:55 11/28/16 20:55 Vital Signs/O2 Sat, Most Current Temp Pulse Resp BP Pulse Ox 98.3 F 67 18 110/71 93 11/30/16 12:03 11/30/16 12:03 11/30/16 12:03 11/30/16 12:03 11/30/16 12:04 Height: 5'9'' Weight: 256# NPO (# of Hours): > 8 hrs0 Pain Scale Used: Numeric (1 - 10) - HEENT Pupil (Motor): Pupils equal, EOMI Mallampati: III Teeth: Normal Oral Opening: Greater than 3 - TAB CUTTER LOC: Oriented TAB CUTTER Motor: Normal RUE, Normal LUE, Normal RLE, Normal LLE, Normal Face TAB CUTTER Sensory: Normal: RUE, LUE, RLE, LLE, Face - Cardiac Rhythm: Regular Murmur: None JVD: No Carotid Bruit: No - Pulmonary Breath Sounds: bilateral Clear Respiratory Effort: Symmetrical Anesthesia Assess/Plan ASA Score: 3 Modified Enmanuel Scale for Level of Consciousness: Cooperative, oriented, and tranquil Anesthetic Plan: General Autologous Blood: Yes Monitoring Plan: Standard Monitors Recovery Plan: PACU
[2016-11-30] MEDS: Budesonide/Formoterol 160/4.5 MDI IH SCH (12:25)
[2016-11-30] MEDS ORDERED: *HR* FentaNYL (PF) 100 MCG/2 ML VIAL ONE (12:28)
[2016-11-30] MEDS ORDERED: *HR* Midazolam HCl 2 MG/2 ML VIAL ONE (12:28)
[2016-11-30] MEDS ORDERED: *HR* Promethazine 25 MG/ML VIAL IVP PRN (13:09)
[2016-11-30] MEDS ORDERED: Albuterol 2.5 MG/3 ML NEBULIZER IH ONE (13:09)
[2016-11-30] MEDS ORDERED: *HR* EPINEPHrine 1 MG/10 ML SYRINGE ONE (13:23)
[2016-11-30] MEDS ORDERED: *HR* Metoprolol 5 MG/5 ML VIAL IVP ONE (13:41)
[2016-11-30] MEDS ORDERED: Ipratropium/Albuterol Neb 3 ML ONE (13:44)
--- NOTE | 2016-11-30 14:31 | Anesthesia Evaluation Post Op ---
Date of Encounter: 11/30/16 Time of Encounter: 14:30 - Vital Signs Vital Signs: Vital Signs/O2 Sat/Glucose, Most Current Temp Pulse Resp BP Pulse Ox 11/30/16 14:24 98.9 F 103 19 111/56 92 11/30/16 14:14 105 23 112/71 91 11/30/16 14:04 105 24 117/66 94 11/30/16 13:54 98.8 F 106 16 122/70 96 11/30/16 12:24 98.1 F 96 14 126/77 95 11/30/16 12:04 93 11/30/16 12:03 98.3 F 67 18 110/71 94 11/30/16 11:09 97.9 F 90 17 116/75 93 - Lungs Lungs: Clear Ascult./Percussion - Airway Airway: Non-obstructed - Cardiovascular Regular Rate (tachy 2/2 coughing with deep inspiration) - Mental Status Mental Status: Alert & Oriented, Answers Appropriately - Pain Pain Scale: 0 - Nausea Vomiting Nausea Vomiting: Not Present - Hydration Hydration: Ice chips - Discharge PostOp Status: Transfer Patient to floor
--- NOTE | 2016-11-30 15:33 | Discharge Summary ---
Date of Encounter: 11/30/16 Time of Encounter: 15:28 - Discharge Diagnosis (1) COPD with acute exacerbation Priority: Primary Status: Acute Comments: Acute COPD exacerbation secondary to postobstructive pneumonia -CT of the chest performed in the emergency department demonstrates large hilar mass on the left side causing postobstructive pulmonary findings and hilar adenopathy. 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 (5) Tobacco abuse Priority: Secondary Status: Acute (6) Rheumatoid arthritis Priority: Secondary Status: Acute Qualifiers: Rheumatoid arthritis location: unspecified site Rheumatoid factor presence : unspecified presence Qualified Code(s): M06.9 - Rheumatoid arthritis, unspecified - Discharge Medications Prescriptions: Levofloxacin [Levaquin] 750 mg PO DAILY #5 tablet predniSONE [PredniSONE] 10 mg PO DAILY 20 Days Home Medications: Adalimumab [Humira Pen Psoriasis-Uveitis] 40 mg SQ Q2W 11/28/16 [History] Albuterol Sulfate [Albuterol Inhaler] 2 puff IH Q4H PRN 11/28/16 [History] Allopurinol [Zyloprim 300 MG] 300 mg PO DAILY 11/28/16 [History] Aspirin 325 mg PO DAILY 11/28/16 [History] Carvedilol [Coreg] 6.25 mg PO BIDWM 11/28/16 [History] Finasteride [Proscar] 5 mg PO DAILY 11/28/16 [History] Fluticasone Propionate Nasal [Flonase] 50 mcg NS BID 11/28/16 [History] Hydroxychloroquine [Plaquenuil] 200 mg PO DAILY 11/28/16 [History] Insulin Glargine,Hum.rec.anlog [Toujamesono Solostar] 50 units SQ QPM 11/28/16 [ History] Ipratropium/Albuterol Neb [Duoneb] 3 ml IH Q6HR 11/28/16 [History] Leflunomide [Arava] 20 mg PO DAILY 11/28/16 [History] Lisinopril [Zestril] 20 mg PO BID 11/28/16 [History] Metformin HCl [Glucophage] 1,000 mg PO BID 11/28/16 [History] Simvastatin [Zocor] 20 mg PO HS 11/28/16 [History] Umeclidinium Brm/Vilanterol Tr [Anoro Ellipta 62.5-25 Mcg INH] 1 each IH DAILY 11/28/16 [History] amLODIPine [Norvasc] 5 mg PO DAILY 11/28/16 [History] Levofloxacin [Levaquin] 750 mg PO DAILY #5 tablet 11/30/16 [Rx] predniSONE [PredniSONE] 10 mg PO DAILY 20 Days 11/30/16 [Rx] Allergies/Adverse Reactions: Allergies Penicillins Allergy (Verified 11/28/16 22:07) Difficulty Swallowing Date of admission: 11/29/16 13:11 Primary care physician: Dionisio Dominique DO - Patient Status Disposition: Home, Self-Care Condition: Fair Overall status at discharge: patient is progressing back to baseline - Discharge Instructions Follow Up With: Dionisio Dominique DO [Primary Care Provider] - 12/06/16 10:20 am Additional Instructions: Follow-up with primary care physician within the next 7 days. Follow-up with the pulmonary service in early next week. Continue Levaquin and tapering prednisone. Quit smoking, use oxygen at home. Hold Humira until the infection is properly controlled - Diet and Activity Activity: increase activity as tolerated, wear oxygen at all times Diet: low fat, low cholesterol Hospital course: Mr. Miller is a 56 year old male with a past medical history of tobacco use, COPD not oxygen dependent, rheumatoid arthritis on therapy including Humira, hydroxychloroquine and Arava who presented for shortness of breath. He stated that he was treated for pneumonia twice over the last month and despite antimicrobial therapy symptoms have returned including nonproductive cough increased shortness of breath wheezing and fatigue. He has had one episode of hemoptysis over the last month, denied significant weight loss has frequent night sweats but has for many years. As part of outpatient patient workup a chest x-ray was performed which was concerning for left-sided pneumonia and possible left-sided mass follow-up CT scan was notable for a large left sided hilar lung mass with compression atelectasis and possible postobstructive pneumonia on this admission because of tachycardia and hypoxia he was sent for a CT angiogram which was negative for filling defect but was notable for solar findings as noncontrasted CT scan of the thorax performed a few days earlier. He has been started on broad-spectrum antimicrobials (Vancomycin and cefepime) steroids and bronchodilators. Further workup including CT of the abdomen and pelvis and CT of the head were not suggestive of metastatic disease He is been diagnosed with COPD and was using twice daily Qvar with good results along with a short acting beta agonist as needed he was recently switched over to Asmanex and this appears to be less effective for antral symptomatology he does have a strong component of seasonal allergy which exacerbates his breathing difficulty. Was evaluated by the pulmonary service, underwent a bronchoscopy today that showed left upper lobe mass concerning for bronchogenic carcinoma, right lung was normal, distortion was found in the left main bronchus with erythema throughout the trachea bronchial tree, the lesion was found and left upper lobe and biopsy was performed. Brushings were obtained and washings were obtained. The patient was given the option to stay in the hospital but he prefers to be discharged home and follow up early next week with the pulmonary service to have possibly for a third debulking of the mass with another bronchoscopy. Oxygen will be arranged and the patient will continue Levaquin and steroids as an outpatient Time spent discussing smoking cessation with patient: 3 to 10 minutes - Time Spent with Patient Total time spent providing and/or coordinating discharge services: Greater than 30 minutes (40 min) - Constitutional Vitals: Temp Pulse Resp BP Pulse Ox 97.5 F L 105 105 111/56 93 11/30/16 14:40 11/30/16 14:40 11/30/16 14:40 11/30/16 14:24 11/30/16 14:40 General appearance: Present: A&O X 3 - Head Head exam: Present: atraumatic, normocephalic - Eye Eye exam: Present: PERRL, conjuntiva pink, sclera anicteric Pupils: Present: PERRL - Neck Neck exam general surgery: Present: supple, trachea midline. Absent: lymphadenopathy - Respiratory Respiratory exam: Present: decreased breath sounds (Blunted breath sounds in the left base), CTAB. Absent: accessory muscle use, rales, rhonchi, wheezes - Cardiovascular Cardiovascular exam: Present: RRR, +S1, +S2. Absent: diastolic murmur, gallop, rubs, systolic murmur - GI/Abdominal GI/Abdominal exam: Present: normal bowel sounds, soft, no peritoneal signs. Absent: distended, tenderness - Extremities Exam Extremities exam: Present: warm, radial pulses palpable and symetrical. Absent : calf tenderness, cyanotic, pedal edema - Neurological Exam Neurological exam: Present: CN II-XII intact, oriented X3, no focal deficits. Absent: pronater drift, facial droop, speech deficit - Skin Skin exam: Present: dry, intact
--- NOTE | 2016-11-30 15:40 | Physician Discharge Referral ---
Home Health/Hosp Referral Info Transfer to: Home Health Provider in Charge Post Discharge: PCP - Diagnosis (1) COPD with acute exacerbation Status: Acute (2) Mass of left lung Status: Acute (3) Postobstructive pneumonia Status: Acute (4) Type 2 diabetes mellitus Status: Acute (5) Tobacco abuse Status: Acute (6) Rheumatoid arthritis Status: Acute - Respiratory Orders Oxygen / L per min (2 L continuously) Smoking Cessation: Smoking cessation has been advised. For more information, call the [place] [employer] Quit Line at [phone]. - Diet/Nutrition Diet/Nutrition Orders: Regular - Services Needed Home Care Orders: Follow-up with primary care physician within the next 7 days. Follow-up with the pulmonary service in early next week. Continue Levaquin and tapering prednisone. Quit smoking, use oxygen at home. Hold Humira until the infection is properly controlled - Transfer Medications Prescriptions: Levofloxacin [Levaquin] 750 mg PO DAILY #5 tablet predniSONE [PredniSONE] 10 mg PO DAILY 20 Days Home Medications: Adalimumab [Humira Pen Psoriasis-Uveitis] 40 mg SQ Q2W 11/28/16 [History] Albuterol Sulfate [Albuterol Inhaler] 2 puff IH Q4H PRN 11/28/16 [History] Allopurinol [Zyloprim 300 MG] 300 mg PO DAILY 11/28/16 [History] Aspirin 325 mg PO DAILY 11/28/16 [History] Carvedilol [Coreg] 6.25 mg PO BIDWM 11/28/16 [History] Finasteride [Proscar] 5 mg PO DAILY 11/28/16 [History] Fluticasone Propionate Nasal [Flonase] 50 mcg NS BID 11/28/16 [History] Hydroxychloroquine [Plaquenuil] 200 mg PO DAILY 11/28/16 [History] Insulin Glargine,Hum.rec.anlog [Toujeo Solostar] 50 units SQ QPM 11/28/16 [ History] Ipratropium/Albuterol Neb [Duoneb] 3 ml IH Q6HR 11/28/16 [History] Leflunomide [Arava] 20 mg PO DAILY 11/28/16 [History] Lisinopril [Zestril] 20 mg PO BID 11/28/16 [History] Metformin HCl [Glucophage] 1,000 mg PO BID 11/28/16 [History] Simvastatin [Zocor] 20 mg PO HS 11/28/16 [History] Umeclidinium Brm/Vilanterol Tr [Anoro Ellipta 62.5-25 Mcg INH] 1 each IH DAILY 11/28/16 [History] amLODIPine [Norvasc] 5 mg PO DAILY 11/28/16 [History] Levofloxacin [Levaquin] 750 mg PO DAILY #5 tablet 11/30/16 [Rx] predniSONE [PredniSONE] 10 mg PO DAILY 20 Days 11/30/16 [Rx] Allergies/Adverse Reactions: Allergies Penicillins Allergy (Verified 11/28/16 22:07) Difficulty Swallowing Certification: Further, I certify that my clinical findings support that this patient is homebound (i.e. absences from home require considerable and taxing effort and are for medical reasons or scientology services or infrequently or short duration when for other reasons) because: Homebound Reason: Patient requires assistance of a person or device to safely leave home Attestation: My signature below is to certify that this patient is under my care and that I, or nurse practitioner, or a physician's hearing and speech assistant working with me, has a face-to -face encounter with this patient.
[2016-11-30] MEDS: Acetaminophen 325 MG TABLET PO PRN (15:46)
[2016-11-30 16:05] VITALS: BP 105/68
[2016-11-30] MEDS ORDERED: Lidocaine -MPF 4% 5 ML AMPUL TP ONE (17:08)
[2016-11-30] MEDS ORDERED: Ondansetron 4 MG/2 ML VIAL IVP ONE (17:08)
[2016-11-30] MEDS ORDERED: *HR* Labetalol 20 MG/4 ML SYRINGE IVP ONE (17:08)
[2016-11-30] MEDS ORDERED: Esmolol 100 MG/10 ML VIAL IVP ONE (17:08)
[2016-11-30] MEDS ORDERED: *HR* Propofol 200 MG/20 ML VIAL IVP ONE (17:08)
[2016-11-30] MEDS ORDERED: Lidocaine -MPF 2% 5 ML VIAL INFILT ONE (17:08)
== END 2016-11-30 17:09 | disposition home or self-care (01) | DRG 140 ==
LOC: 3ANU 20:43 → EMEROO 20:43 → 3ANU 11-29 00:51
PROVIDERS: ADMIT Internal Medicine Endocrinology, Diabetes & Metabolism; ATTEND Internal Medicine

== ENCOUNTER 2016-12-31 06:41 | Inpatient (IN) ==
[2016-12-31] MEDS ORDERED: methylPREDNISolone 125 MG/2 ML VIAL IVP ONE (07:23)
[2016-12-31] MEDS ORDERED: Ipratropium/Albuterol Neb 3 ML IH ONE (07:23)
[2016-12-31 07:55] LABS: Basophils % 1.2 %; Eosinophils % 1.2 %; Hematocrit 35.1 % (37.5-50.1); Hemoglobin 11.1 g/dL (12.9-16.9); Immature Granulocytes % 0.6 % (0-4); Lymphocytes # 0.3 K/mcL (0.6-4.6); Lymphocytes % 7.9 %; Mean Corpuscular HGB Conc 31.6 g/dL (31.6-35.5); Mean Corpuscular Hemoglobin 27.5 pg (28.0-33.3); Mean Corpuscular Volume 87.1 fL (83.0-100.0); Mean Platelet Volume 9.8 fL (9.4-12.4); Monocytes # 0.1 K/mcL (0.0-1.3); Platelet Count 147 K/mcL (140-400); Red Blood Count 4.03 M/mcL (4.19-5.50); Red Cell Distribution Width 13.8 % (11.5-14.5); Segmented Neutrophils % 87.1 %
[2016-12-31 08:02] LABS: Calcium 8.3 mg/dL (8.6-10.8); Potassium 4.5 mEq/L (3.5-4.5)
[2016-12-31] MEDS ORDERED: 0.9 % Sodium Chloride 1,000 ML IVC ONE (08:21)
[2016-12-31] MEDS ORDERED: Aspirin 81 MG TAB.CHEW PO STA (08:27)
--- NOTE | 2016-12-31 08:36 | Emergency Department Note ---
Addendum entered and electronically signed by Юлия Ellsworth MD 12/31/16 10 :44: Spoke with hospitalist at 10:[address] Harkins to let her know that patient was moved upstairs prior to physician admittance. We also wanted to inform her that we had ordered antibiotics before patient was moved, and that they had not been given. Also, we put in an order for a CT scan of the patient's chest without IV contrast secondary to patient's MICHELLE. Original Note: Disposition Clinical Impression: Acute respiratory distress, HCAP (healthcare-associated pneumonia), Acute kidney injury, Hypoxia Sepsis Qualifiers: Sepsis type: sepsis due to unspecified organism Qualified Code(s): A41.9 - Sepsis, unspecified organism SCLC (small cell lung carcinoma) Qualifiers: Laterality: left Qualified Code(s): C34.92 - Malignant neoplasm of unspecified part of left bronchus or lung Disposition: Admitted As Inpatient Condition: Fair Time of Disposition: 09:54 General Adult HPI - General Chief complaint: ED Shortness of Breath/Dyspnea Stated complaint: PLACIDO Time Seen by Provider: 12/31/16 07:13 Source: patient Mode of arrival: EMS Limitations: no limitations Nursing Notes Reviewed: Yes Vital Signs Reviewed: Yes - History of Present Illness HPI Narrative: Mr. Miller is a 56-year-old male with past medical history of diabetes, coronary artery disease, hypertension, congestive heart failure, and squamous cell carcinoma the lung. He presents to the ED with a one-day history of worsening shortness of breath. His symptoms are made worse by lying flat and they are alleviated somewhat when he sits upright. Mr. Miller completed his first course of chemotherapy for his squamous cell carcinoma on the eighth. He denies any chest pain although he is having some difficulty along his midline from swallowing. Onset (ago): day(s) Pain Scale: 5 - Related Data Home Medications Medication Instructions Recorded Confirmed Albuterol Sulfate [Albuterol 2 puff IH Q4H PRN 11/28/16 12/31/16 Inhaler] Aspirin 325 mg PO DAILY 11/28/16 12/31/16 Carvedilol [Coreg] 6.25 mg PO BIDWM 11/28/16 12/31/16 Finasteride [Proscar] 5 mg PO DAILY 11/28/16 12/31/16 Fluticasone Propionate Nasal 1 spray NS BID 11/28/16 12/31/16 [Flonase] Hydroxychloroquine [Plaquenuil] 400 mg PO DAILY 11/28/16 12/31/16 Insulin Glargine,Hum.rec.anlog 50 units SQ QPM 11/28/16 12/31/16 [Touata Solostar] Ipratropium/Albuterol Neb [Duoneb] 3 ml IH Q6HR 11/28/16 12/31/16 Leflunomide [Arava] 20 mg PO DAILY 11/28/16 12/31/16 Lisinopril [Zestril] 20 mg PO BID 11/28/16 12/31/16 Metformin HCl [Glucophage] 1,000 mg PO BID 11/28/16 12/31/16 Simvastatin [Zocor] 20 mg PO HS 11/28/16 12/31/16 Acetaminophen [Tylenol] 1,000 mg PO Q6HR PRN 12/14/16 12/31/16 Fluticasone/Vilanterol [Breo 1 puff IH DAILY 12/14/16 12/31/16 Ellipta 100-25 Mcg INH] Mag Hydrox/Al Hydrox/Simeth 15 ml PO Q6HR PRN 12/25/16 12/31/16 [Maalox] Pantoprazole Sodium [Protonix] 40 mg PO DAILY 12/25/16 12/31/16 Psyllium Husk (with Sugar) [Konsyl 3.4 gm PO BID 12/25/16 12/31/16 Psyllium Fiber Packet] Whey Protein Concen/Amino Acid 17 gm PO BID 12/25/16 12/31/16 [Whey Protein Concentrate Powd] Previous Rx's Medication Instructions Recorded diazePAM [Valium] 10 mg PO BID PRN #5 tablet 12/14/16 Allopurinol [Zyloprim 300 MG] 300 mg PO HS #30 tablet 12/20/16 Magic Mouthwash [Magic Mouthwash 10 ml PO QID PRN #240 ml 12/25/16 BLM] Ondansetron HCl [Zofran] 4 mg PO Q4H PRN #30 tablet 12/25/16 Prochlorperazine Maleate 10 mg PO Q6H PRN #30 tablet 12/25/16 [Compazine] Ranitidine HCl [Zantac] 150 mg PO BID #60 tablet 12/25/16 metroNIDAZOLE [Flagyl] 500 mg PO TID #15 tablet 12/25/16 Furosemide [Lasix] 40 mg PO DAILY PRN #10 tablet 12/27/16 Potassium Chloride [K-Tab ER] 20 meq PO DAILY PRN #10 tablet.er 12/27/16 Allergies Allergy/AdvReac Type Severity Reaction Status Date / Time Penicillins Allergy Difficulty Verified 12/25/16 10:04 Swallowing All systems ED: reviewed and negative except as stated. Constitutional: Reports: fever, weakness. Denies: chills Cardiovascular: Reports: edema (4+ pitting edema.), paroxysmal nocturnal dyspnea. Denies: chest pain, palpitations Respiratory: Reports: cough, dyspnea Gastrointestinal: Reports: abdominal pain, nausea, vomiting. Denies: diarrhea, hematemesis, melena, hematochezia Genitourinary: Denies: urgency, dysuria, frequency Musculoskeletal: Reports: back pain Past Medical History - Past Medical History Attestation: Yes The following information was validated with the patient. Medical history: Reports: arthritis, CHF, COPD, diabetes, hypertension, TIA Surgical history: Reports: appendectomy Psychiatric history: Reports: no psych history - Social History Smoking Status: Former smoker Smokeless Tobacco Status: No Alcohol use: Reports: none Drug use: Reports: none Physical Exam - General Limitations: no limitations General appearance: alert, in no apparent distress - Head Head exam: atraumatic - Eye Eye exam: Present: PERRL - ENT ENT exam: mucous membranes dry - Neck Neck exam: Present: full ROM, trachea midline - Chest Chest inspection: Present: normal inspection - Respiratory Respiratory exam: Present: respiratory distress, wheezes, stridor, prolonged expiratory phase - Cardiovascular Cardiovascular exam: Present: normal rhythm, tachycardia, normal heart sounds. Absent: rubs, gallop - Abdominal Exam Abdominal exam: Present: soft, organomegaly Abdominal tenderness: Present: RUQ, LUQ, mild - Extremities Exam Extremities exam: Present: pedal edema ($+) - Neurological Exam Neurological exam: Present: oriented X3 - Psychiatric Psychiatric exam: Present: normal affect - Skin Skin exam: Present: warm, dry Course Course Narrative: 56 yo male with past medical history of coronary artery disease, hypertension, diabetes, congestive heart failure, COPD, and squamous cell carcinoma of his left lung presents with one-day history of worsening shortness of breath. Given Duo nebs, steroids, and antibiotics in the ER after cultures, labs, and imaging ordered. X-ray shows complete opacification of his left hemithorax. Prior CT shows post-obstructive picture of left lung secondary to squamous cell carcinoma. Will treat for HCAP and sepsis. - Reevaluation(s) Reevaluation #1: Spoke with nurse practitioner in oncology Francisca Borden. Consulted medicine. Reevaluation #2: Spoke with Dr. Barry on medicine. She requested CT scan on thorax. Patient was already moved off the floor by bed management. Vital Signs Temperature 100.7 F H 12/31/16 06:43 Pulse Rate 118 12/31/16 06:43 Respiratory Rate 24 12/31/16 06:43 Blood Pressure 139/76 12/31/16 06:43 O2 Sat by Pulse Oximetry 91 12/31/16 06:43 Temperature 100.7 F H 12/31/16 06:43 Pulse Rate 111 12/31/16 07:42 Respiratory Rate 12 12/31/16 08:57 Blood Pressure 135/70 12/31/16 08:57 O2 Sat by Pulse Oximetry 91 12/31/16 10:30 Oxygen Delivery Oxygen Delivery Nasal Cannula Medical Decision Making - Medical Records Medical records reviewed: Yes I reviewed the patient's medical records. - Lab Data Lab results reviewed: Yes I reviewed the patient's lab results. Result diagrams: 12/31/16 07:36 12/31/16 07:36 Lab Results 12/31/16 12/31/16 12/31/16 Range/Units 07:36 07:36 07:36 WBC 3.4 L (4.3-11.1) K/mcL RBC 4.03 L (4.19-5.50) M/mcL Hgb 11.1 L (12.9-16.9) g/dL Hct 35.1 L (37.5-50.1) % MCV 87.1 (83.0-100.0) fL MCH 27.5 L (28.0-33.3) pg MCHC 31.6 (31.6-35.5) g/dL RDW 13.8 (11.5-14.5) % Plt Count 147 (140-400) K/mcL MPV 9.8 (9.4-12.4) fL Immature Gran % 0.6 (0-4) % Seg Neutrophils % 87.1 % Lymphocytes % 7.9 % Monocytes % 2.0 % Eosinophils % 1.2 % Basophils % 1.2 % Neutrophils # 3.0 (1.6-8.9) K/mcL Lymphocytes # 0.3 L (0.6-4.6) K/mcL Monocytes # 0.1 (0.0-1.3) K/mcL Eosinophils # 0.0 (0.0-0.6) K/mcL Basophils # 0.0 (0.0-0.2) K/mcL Immature Plt Fraction 3.0 (1.1-6.1) % PT (9.4-12.1) Seconds INR APTT (26.0-36.0) Seconds VBG pH (7.32-7.42) pH Units VBG pCO2 (41-51) mmHg VBG pO2 (25-40) mmHg VBG HCO3 (21-27) mEq/L Sodium 133 L (136-145) mEq/L Potassium 4.5 (3.5-4.5) mEq/L Chloride 97 L (98-109) mEq/L Carbon Dioxide 29 (19-29) mEq/L BUN 56 H (8-26) mg/dL Creatinine 2.30 H (0.72-1.25) mg/dL Est GFR ( Amer) 36 L (> 60) Est GFR (Non-Af Amer) 30 L (> 60) BUN/Creatinine Ratio 24 (6-26) Glucose 114 H (70-99) mg/dL Calculated Osmolality 292 (280-300) Lactic Acid 0.6 (0.5-2.2) mmol/L Calcium 8.3 L (8.6-10.8) mg/dL Phosphorus 2.5 (2.3-4.7) mg/dL Magnesium 1.1 L (1.6-2.6) mg/dL Troponin I (0-0.03) ng/mL B-Natriuretic Peptide (0-100) pg/mL Urine Color (Yellow) Urine Clarity (Clear) Urine pH (5.0-8.0) pH Units Ur Specific [place] (1.010-1.025) Urine Protein (Neg-Trace) mg/dL Urine Glucose (UA) (Normal) mg/dL Urine Ketones (Negative) mg/dL Urine Blood (Negative) Urine Nitrite (Negative) Urine Bilirubin (Negative) Urine Urobilinogen (Normal) mg/dL Ur Leukocyte Esterase (Negative) Urine Microscopic RBC (0-3) per hpf Urine Microscopic WBC (0-3) per hpf Ur Squamous Epith Cells (None-Few) per lpf Urine Bacteria (None-Few) per hpf Hyaline Casts (None-Few) per lpf Urine Yeast Ur Culture Indicated? (NO) 12/31/16 12/31/16 12/31/16 Range/Units 07:36 07:36 07:36 WBC (4.3-11.1) K/mcL RBC (4.19-5.50) M/mcL Hgb (12.9-16.9) g/dL Hct (37.5-50.1) % MCV (83.0-100.0) fL MCH (28.0-33.3) pg MCHC (31.6-35.5) g/dL RDW (11.5-14.5) % Plt Count (140-400) K/mcL MPV (9.4-12.4) fL Immature Gran % (0-4) % Seg Neutrophils % % Lymphocytes % % Monocytes % % Eosinophils % % Basophils % % Neutrophils # (1.6-8.9) K/mcL Lymphocytes # (0.6-4.6) K/mcL Monocytes # (0.0-1.3) K/mcL Eosinophils # (0.0-0.6) K/mcL Basophils # (0.0-0.2) K/mcL Immature Plt Fraction (1.1-6.1) % PT 14.8 H (9.4-12.1) Seconds INR 1.4 APTT 26.2 (26.0-36.0) Seconds VBG pH (7.32-7.42) pH Units VBG pCO2 (41-51) mmHg VBG pO2 (25-40) mmHg VBG HCO3 (21-27) mEq/L Sodium (136-145) mEq/L Potassium (3.5-4.5) mEq/L Chloride (98-109) mEq/L Carbon Dioxide (19-29) mEq/L BUN (8-26) mg/dL Creatinine (0.72-1.25) mg/dL Est GFR ( Amer) (> 60) Est GFR (Non-Af Amer) (> 60) BUN/Creatinine Ratio (6-26) Glucose (70-99) mg/dL Calculated Osmolality (280-300) Lactic Acid (0.5-2.2) mmol/L Calcium (8.6-10.8) mg/dL Phosphorus (2.3-4.7) mg/dL Magnesium (1.6-2.6) mg/dL Troponin I 0.02 (0-0.03) ng/mL B-Natriuretic Peptide 104 H (0-100) pg/mL Urine Color (Yellow) Urine Clarity (Clear) Urine pH (5.0-8.0) pH Units Ur Specific [place] (1.010-1.025) Urine Protein (Neg-Trace) mg/dL Urine Glucose (UA) (Normal) mg/dL Urine Ketones (Negative) mg/dL Urine Blood (Negative) Urine Nitrite (Negative) Urine Bilirubin (Negative) Urine Urobilinogen (Normal) mg/dL Ur Leukocyte Esterase (Negative) Urine Microscopic RBC (0-3) per hpf Urine Microscopic WBC (0-3) per hpf Ur Squamous Epith Cells (None-Few) per lpf Urine Bacteria (None-Few) per hpf Hyaline Casts (None-Few) per lpf Urine Yeast Ur Culture Indicated? (NO) 12/31/16 12/31/16 Range/Units 08:27 09:01 WBC (4.3-11.1) K/mcL RBC (4.19-5.50) M/mcL Hgb (12.9-16.9) g/dL Hct (37.5-50.1) % MCV (83.0-100.0) fL MCH (28.0-33.3) pg MCHC (31.6-35.5) g/dL RDW (11.5-14.5) % Plt Count (140-400) K/mcL MPV (9.4-12.4) fL Immature Gran % (0-4) % Seg Neutrophils % % Lymphocytes % % Monocytes % % Eosinophils % % Basophils % % Neutrophils # (1.6-8.9) K/mcL Lymphocytes # (0.6-4.6) K/mcL Monocytes # (0.0-1.3) K/mcL Eosinophils # (0.0-0.6) K/mcL Basophils # (0.0-0.2) K/mcL Immature Plt Fraction (1.1-6.1) % PT (9.4-12.1) Seconds INR APTT (26.0-36.0) Seconds VBG pH 7.36 (7.32-7.42) pH Units VBG pCO2 48 (41-51) mmHg VBG pO2 127 H (25-40) mmHg VBG HCO3 27.1 H (21-27) mEq/L Sodium (136-145) mEq/L Potassium (3.5-4.5) mEq/L Chloride (98-109) mEq/L Carbon Dioxide (19-29) mEq/L BUN (8-26) mg/dL Creatinine (0.72-1.25) mg/dL Est GFR ( Amer) (> 60) Est GFR (Non-Af Amer) (> 60) BUN/Creatinine Ratio (6-26) Glucose (70-99) mg/dL Calculated Osmolality (280-300) Lactic Acid (0.5-2.2) mmol/L Calcium (8.6-10.8) mg/dL Phosphorus (2.3-4.7) mg/dL Magnesium (1.6-2.6) mg/dL Troponin I (0-0.03) ng/mL B-Natriuretic Peptide (0-100) pg/mL Urine Color Yellow (Yellow) Urine Clarity Clear (Clear) Urine pH 6.0 (5.0-8.0) pH Units Ur Specific [place] 1.016 (1.010-1.025) Urine Protein 30 H (Neg-Trace) mg/dL Urine Glucose (UA) Normal (Normal) mg/dL Urine Ketones Negative (Negative) mg/dL Urine Blood Negative (Negative) Urine Nitrite Negative (Negative) Urine Bilirubin Negative (Negative) Urine Urobilinogen Normal (Normal) mg/dL Ur Leukocyte Esterase Negative (Negative) Urine Microscopic RBC 3-5 H (0-3) per hpf Urine Microscopic WBC 3-5 H (0-3) per hpf Ur Squamous Epith Cells Few (None-Few) per lpf Urine Bacteria Few (None-Few) per hpf Hyaline Casts None Seen (None-Few) per lpf Urine Yeast Test Not Performed Ur Culture Indicated? NO (NO) - Radiology Data Radiology results reviewed: Yes I reviewed the patient's radiology results. Chest X-Ray 12/31/16 07:23 IMPRESSION: Complete opacification of the left hemithorax, worsened since 11/28/2016. D/ / 12/31/2016 07:45:45 Annita Johnston MD / earshaan Interpreting Provider: Annita Johnston MD - EKG Data EKG #1 EKG attestation: Yes I reviewed and interpreted this EKG. EKG results narrative: Patients ECG on 12-31-2016 at 6:48AM show sinus tachycardia with poor r wave progression in V1, V2, and V3. This is unchanged from ECG on 11-28-2016. Attestation Statement - Attestation Attestation: I personally interviewed and examined this patient and my medical decision- making was reviewed with the Resident Physician, Dr. Ellsworth. I agree with the documented findings, disposition and treatment plan as described except to the extent set forth below. She has a 56-year-old white male with a history of COPD, CHF, small cell lung cancer that was recently diagnosed in November who presents to the emergency department this morning with mild respiratory distress and hypoxia with complaints of worsening shortness of breath. Patient just recently finished his first chemotherapy treatment for his small cell lung cancer, states that over the past 24 hours he has developed generalized myalgias, subjective fevers and chills then this morning patient reports that he took temperature and it was 102 MAXIMUM TEMPERATURE. Patient with gradually worsening shortness of breath normally is on 2 L nasal cannula oxygen at home since his lung cancer diagnosis requiring 4 L to maintain his sats 92-93% here in the ED. Patient is also tachycardic and ticket neck but with a stable blood pressure. Patient denies any posttussive emesis, no complaints of chest pain or heaviness. I agree with patient's physical exam findings as documented. Patient with coarse diminished breath sounds on the entire left hemithorax compared to the right with mild distress and increased work of breathing. Patient was immediately placed on additional supplemental oxygen by nasal cannula, continuous pulse ox and teletypesetter monitor. EKG was obtained which did not show any acute ischemic changes. Labs were drawn and sent and patient was given a DuoNeb on arrival. Patient's chest x-ray shows complete opacification of the left hemithorax. Patient received Tylenol for his fever, labs do not show an elevated white count. Patient with acute on chronic renal insufficiency most likely secondary to dehydration and fever. IV fluids were initiated and septic protocol was initiated. Blood cultures and IV antibiotics were initiated in the ED. Based on patient's clinical presentation and infectious etiology is most likely possible in the context of his lung cancer. Patient will ultimately require CT scan for further evaluation as well as to rule out possible PE. Patient remained hemodynamically stable in the ED and his initial lactate was negative. Discussed the case with the hospitalist who accepted the patient for admission and also notified his oncologist from the ED. Patient was admitted for further evaluation of respiratory distress with hypoxia secondary to small cell lung CA , pneumonia, sepsis with acute on chronic renal insufficiency.
[2016-12-31] MEDS ORDERED: Vancomycin (wt based) 1,000 MG VIAL IV ONE (08:39)
[2016-12-31] MEDS ORDERED: Levofloxacin 750 MG/150 ML 750 MG/150 ML BAG IVPB ONE (08:39)
[2016-12-31 08:40] LABS: INR 1.4; Prothrombin Time 14.8 Seconds (9.4-12.1)
[2016-12-31 08:41] LABS: Magnesium 1.1 mg/dL (1.6-2.6); Phosphorous 2.5 mg/dL (2.3-4.7)
[2016-12-31 08:43] LABS: Activated Partial Thrombo Time 26.2 Seconds (26.0-36.0)
[2016-12-31 08:45] LABS: Bilirubin,Urine Negative (Negative); Blood,Urine Negative (Negative); Clarity,Urine Clear (Clear); Color,Urine Yellow (Yellow); Glucose,Urine (UA) Normal (Normal); Ketones,Urine Negative (Negative); Leukocyte Esterase,Urine Negative (Negative); Nitrite,Urine Negative (Negative); Protein,Urine 30 mg/dL (Neg-Trace); Specific Gravity,Urine 1.016 (1.010-1.025); Urobilinogen,Urine Normal (Normal)
[2016-12-31 08:48] LABS: Hyaline Casts,Urine None Seen per lpf (None-Few)
[2016-12-31 09:00] LABS: Squamous Epithelial Cell,Urine Few per lpf (None-Few)
[2016-12-31] MEDS ORDERED: Vancomycin 1,500 MG in D5% in Water 250 ML IVPB ONE (09:00)
[2016-12-31] MEDS ORDERED: Ertapenem 1,000 MG in 0.9 % Sodium Chloride Mini Bag 100 ML IVPB SCH (09:00)
[2016-12-31 09:01] LABS: Bacteria,Urine Few per hpf (None-Few)
[2016-12-31 09:09] LABS: VBG HCO3 27.1 mEq/L (21-27); VBG PH 7.36 pH Units (7.32-7.42)
--- NOTE | 2016-12-31 11:08 | Internal Med History&Physical ---
Date of Encounter: 12/31/16 Time of Encounter: 11:04 Assessment and Plan (1) SCLC (small cell lung carcinoma) Current visit: Yes Status: Acute Recently diagnosed, follows with Dr. Juarez and [facility]. Status post first cycle of chemotherapy, staging not completed. Was evaluated by the pulmonary service on last admission, underwent a bronchoscopy that showed left upper lobe mass concerning for bronchogenic carcinoma, right lung was normal, distortion was found in the left main bronchus with erythema throughout the trachea bronchial tree, the lesion was found and left upper lobe and biopsy was performed. Repeat chest x-ray today shows complete opacification of the left hemithorax. repeat CT chest today shows upper lobe collapse from bronchial obstruction from the lung mass and moderate to large pleural effusion. will consult pulmonary for possible intervention. Oncology has been consulted. Patient to follow up as outpatient for further management. Qualifiers: Laterality: left Qualified Code(s): C34.92 - Malignant neoplasm of unspecified part of left bronchus or lung (2) Postobstructive pneumonia Current visit: No Status: Acute Patient has a large perihilar left-sided mass. Chest x-ray today shows complete opacification of the left hemithorax. Will treat empirically for postobstructive pneumonia, patient is allergic to penicillin, has been started on ertapenem, Vanco and levo, follow CT chest results. mild leucopenia , however ANC is normal, monitor cbc. If large effusion, will consult IR for drainage and sent for pleural fluid analysis, could be malignant. Will continue symptomatic treatment, oxygen as needed to maintain saturation above 95%. (3) Type 2 diabetes mellitus Current visit: No Status: Acute We will place the patient on low-dose sliding scale for now. Will monitor fingersticks. 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 willl monitor chem7, avoid nephrotoxins and hold vancomycin for now. Internal Medicine - H&P: HPI Chief complaint: cough and sob Admitted From: Home Plans for Post Hospital Care: Home History of present illness: Mr. Miller is a 56 year old male with past medical history of diabetes, coronary artery disease, hypertension, congestive heart failure, and squamous cell carcinoma the lung recently diagnosed , followed by Dr. Juarez at [facility]. He was recently seen on December 25, staging not completed at this time, could be stage 4 as per the last note given pleural effusion. He is status post 1 cycle of chemotherapy. He presents to the ED with a one-day history of worsening shortness of breath. His symptoms are made worse by lying flat and they are alleviated somewhat when he sits upright. Mr. Miller completed his first course of chemotherapy for his squamous cell carcinoma on the . He reports that he just quit smoking. States that he vomited in the morning from repeated coughing, denies hemoptysis or fever. He has been treated for postobstructive pneumonia recently and underwent bronchoscopy with removal of mucous plug. Chest x-ray done in the ED shows complete opacification of the left side of the lung. At the time of my assessment, he appears to be stable and in no acute respiratory distress. Past Med Surg Social Fam HX - Past Medical History Medical history: arthritis, CHF, COPD, diabetes, hypertension, TIA Psychiatric history: no psych history - Past Surgical History Surgical History: appendectomy - Social History Smoking Status: Former smoker Smokeless Tobacco Status: No Alcohol use: none Drug use: none - Family History Father Living Status: Hx Family Respiratory Disorders: Yes (Emphysema) Hx Family Neurologic Disorders: Yes (Stroke) Internal Medicine - H&P: Meds Albuterol Sulfate [Albuterol Inhaler] 2 puff IH Q4H PRN 11/28/16 [History] Aspirin 325 mg PO DAILY 11/28/16 [History] Carvedilol [Coreg] 6.25 mg PO BIDWM 11/28/16 [History] Finasteride [Proscar] 5 mg PO DAILY 11/28/16 [History] Fluticasone Propionate Nasal [Flonase] 1 spray NS BID 11/28/16 [History] Hydroxychloroquine [Plaquenuil] 400 mg PO DAILY 11/28/16 [History] Insulin Glargine,Hum.rec.anlog [Touata Solostar] 50 units SQ QPM 11/28/16 [ History] Ipratropium/Albuterol Neb [Duoneb] 3 ml IH Q6HR 11/28/16 [History] Leflunomide [Arava] 20 mg PO DAILY 11/28/16 [History] Lisinopril [Zestril] 20 mg PO BID 11/28/16 [History] Metformin HCl [Glucophage] 1,000 mg PO BID 11/28/16 [History] Simvastatin [Zocor] 20 mg PO HS 11/28/16 [History] Acetaminophen [Tylenol] 1,000 mg PO Q6HR PRN 12/14/16 [History] Fluticasone/Vilanterol [Breo Ellipta 100-25 Mcg INH] 1 puff IH DAILY 12/14/16 [ History] diazePAM [Valium] 10 mg PO BID PRN #5 tablet 12/14/16 [Rx] Allopurinol [Zyloprim 300 MG] 300 mg PO HS #30 tablet 12/20/16 [Rx] Mag Hydrox/Al Hydrox/Simeth [Maalox] 15 ml PO Q6HR PRN 12/25/16 [History] Magic Mouthwash [Magic Mouthwash BLM] 10 ml PO QID PRN #240 ml 12/25/16 [Rx] Ondansetron HCl [Zofran] 4 mg PO Q4H PRN #30 tablet 12/25/16 [Rx] Pantoprazole Sodium [Protonix] 40 mg PO DAILY 12/25/16 [History] Prochlorperazine Maleate [Compazine] 10 mg PO Q6H PRN #30 tablet 12/25/16 [Rx] Psyllium Husk (with Sugar) [Konsyl Psyllium Fiber Packet] 3.4 gm PO BID [History] Ranitidine HCl [Zantac] 150 mg PO BID #60 tablet 12/25/16 [Rx] Whey Protein Concen/Amino Acid [Whey Protein Concentrate Powd] 17 gm PO BID 06/12 [History] metroNIDAZOLE [Flagyl] 500 mg PO TID #15 tablet 12/25/16 [Rx] Furosemide [Lasix] 40 mg PO DAILY PRN #10 tablet 12/27/16 [Rx] Potassium Chloride [K-Tab ER] 20 meq PO DAILY PRN #10 tablet.er 12/27/16 [Rx] Allergies Penicillins Allergy (Verified 12/25/16 10:04) Difficulty Swallowing All Systems PM: A 10-system review of systems was performed and is negative for pertinent findings except as documented above in the HPI. - Constitutional Constitutional: as per HPI - EENT Eyes: as per HPI Ears: as per HPI Nose, mouth and throat: as per HPI - Breasts Breasts: as per HPI - Cardiovascular Cardiovascular ROS IM: as per HPI - Respiratory Respiratory: cough, dyspnea - Gastrointestinal Gastrointestinal: as per HPI - Constitutional Vitals: Temp Pulse Resp BP Pulse Ox 100.7 F H 111 12 135/70 91 12/31/16 06:43 12/31/16 07:42 12/31/16 08:57 12/31/16 08:57 12/31/16 10:30 General appearance: Present: A&O X 3, no acute distress Exam: Speaking in full sentences. Neck supple. Chest decreased breath sounds on the left side, no wheezing or crepitations. CVS S1-S2, no murmurs rubs or gallops. Abdomen soft, nontender, bowel sounds are present. Extremities bilateral lower leg swelling more on the left. Neuro alert and awake and oriented 3. Internal Med - H&P Results - Labs CBC & Chem 7: 12/31/16 07:36 12/31/16 07:36
[2016-12-31] MEDS ORDERED: Naloxone 0.4 MG/ML INJ IVP PRN (11:20)
[2016-12-31] MEDS ORDERED: Albuterol 2.5 MG/3 ML NEBULIZER IH PRN (11:24)
[2016-12-31] MEDS ORDERED: Dextrose Gel 15 GM PO PRN ×2 (11:25)
[2016-12-31] MEDS ORDERED: *HR* Dextrose 50 % in Water (Syg) 50 ML SYRINGE IVP PRN (11:25)
[2016-12-31] MEDS ORDERED: D5% in Water 1,000 ML IVC PRN (11:25)
[2016-12-31] MEDS ORDERED: *HR* OxyCODONE/APAP 5/325 TABLET PO PRN (11:49)
[2016-12-31] MEDS: Insulin LISPRO 300 UNITS/3 ML VIAL SQ SCH ×3 (11:58→21:23)
[2016-12-31] MEDS: *HR* OxyCODONE/APAP 5/325 TABLET PO PRN ×2 (13:23→21:24)
[2016-12-31] MEDS: Levofloxacin 750 MG/150 ML 750 MG/150 ML BAG IVPB SCH (13:32)
--- NOTE | 2016-12-31 14:14 | Pulmonology Consult Note ---
Date of Encounter: 12/31/16 Time of Encounter: 14:14 Assessment and Plan (1) Acute and chronic respiratory failure with hypoxia Current Visit: Yes Status: Acute 56yo gentleman with a newly diagnosed small cell lung cancer complete staging is still being undertaken his completed one round of chemotherapy presenting with pneumonia which is likely postobstructive in nature related to malignancy. He also had evidence of volume overload on exam and a small left-sided pleural effusion with acute kidney injury. Lastly he has history of rheumatoid arthritis on Plaquenil and Arava further continuing to his immunosuppression. From The standpoint of lung cancer do not feel there is much to offer in the way of bronchoscopy he has undergone bronchoscopy 2 the first one with the diagnosis of small cell cancer was made the second which was an interventional procedure with attempt to open the left upper lobe which is partially successful I suspect that disease continues to progress and this is resulted in the radiographic findings.. I will discuss with our interventional decision unit rn regarding any further intervention but definitive treatment right now would be continuation of chemotherapy and possible radiation. Continue to wean supplemental oxygen to keep saturation greater than 88% I agree with empiric antimicrobials blood cultures have been obtained I would send off sputum culture 2 continue broad antimicrobials at present can de- escalate next 48 hours based upon clinical course. I would also add prednisone 40 mg daily to his regimen. Schedule bronchodilators (Duonebs)every 6 hours and albuterol on an as-needed basis Patient has a history of heart failure and is clearly volume overloaded on exam today per patient his diuretic regimen was recently stopped and I believe this was out of concern for chemotherapy and possibly even tumor lysis syndrome with small cell lung cancer. I am unclear etiology of acute kidney injury but checking the patient's uric acid level is a reasonable step.. I will defer management of acute kidney injury and volume overload primary medicine service but I think on balance he would benefit from diuresis once etiology of acute kidney injury is determined and if this is improving He also has a small left-sided pleural effusion the patient could be referred to interventional radiology for drainage and cytology sent which would help with staging Recommend chemical DVT prophylaxis with LMWH unless contraindication arises (2) Acute kidney injury Current Visit: Yes Status: Acute (3) SCLC (small cell lung carcinoma) Current Visit: Yes Status: Acute Qualifiers: Laterality: left Qualified Code(s): C34.92 - Malignant neoplasm of unspecified part of left bronchus or lung (4) COPD (chronic obstructive pulmonary disease) Current Visit: No Status: Acute Qualifiers: COPD type: COPD with acute lower respiratory infection Qualified Code(s): J44.0 - Chronic obstructive pulmonary disease with acute lower respiratory infection (5) Mass of left lung Current Visit: No Status: Acute (6) Postobstructive pneumonia Current Visit: No Status: Acute (7) Rheumatoid arthritis Current Visit: No Status: Acute Qualifiers: Rheumatoid arthritis location: unspecified site Rheumatoid factor presence : unspecified presence Qualified Code(s): M06.9 - Rheumatoid arthritis, unspecified History of Present Illness Consult date: 12/31/16 Requesting physician: Steve Harkins Reason for consult: abnormal CXR/CT Chief complaint: Shortness of Breath. History of present illness: Very pleasant 56-year-old gentleman with a history of tobacco abuse now recently in remission and recent diagnosis of small cell lung cancer who undergone one cycle of chemotherapy. He presented with productive cough fatigue shortness of breath and worsening hypoxemia found to have evidence of pneumonia on CT scan with opacification of most the left hemithorax related to tumor burden and notable left effusion. Today's feels a little better than he did yesterday on admission and that he is able to start mobilizing some more production of sputum with his cough which he describes as greenish. Past Med Surg Social Fam HX - Past Medical History Medical history: arthritis, CHF, COPD, diabetes, hypertension, TIA Psychiatric history: no psych history - Past Surgical History Surgical History: appendectomy - Social History Smoking Status: Former smoker Smokeless Tobacco Status: No Alcohol use: none Drug use: none - Family History Father Living Status: Hx Family Respiratory Disorders: Yes (Emphysema) Hx Family Neurologic Disorders: Yes (Stroke) Medications and Allergies Albuterol Sulfate [Albuterol Inhaler] 2 puff IH Q4H PRN 11/28/16 [History] Aspirin 325 mg PO DAILY 11/28/16 [History] Carvedilol [Coreg] 6.25 mg PO BIDWM 11/28/16 [History] Finasteride [Proscar] 5 mg PO DAILY 11/28/16 [History] Fluticasone Propionate Nasal [Flonase] 1 spray NS BID 11/28/16 [History] Hydroxychloroquine [Plaquenuil] 400 mg PO DAILY 11/28/16 [History] Insulin Glargine,Hum.rec.anlog [Toujeo Solostar] 50 units SQ QPM 11/28/16 [ History] Ipratropium/Albuterol Neb [Duoneb] 3 ml IH Q6HR 11/28/16 [History] Leflunomide [Arava] 20 mg PO DAILY 11/28/16 [History] Lisinopril [Zestril] 20 mg PO BID 11/28/16 [History] Metformin HCl [Glucophage] 1,000 mg PO BID 11/28/16 [History] Simvastatin [Zocor] 20 mg PO HS 11/28/16 [History] Acetaminophen [Tylenol] 1,000 mg PO Q6HR PRN 12/14/16 [History] Fluticasone/Vilanterol [Breo Ellipta 100-25 Mcg INH] 1 puff IH DAILY 12/14/16 [ History] diazePAM [Valium] 10 mg PO BID PRN #5 tablet 12/14/16 [Rx] Allopurinol [Zyloprim 300 MG] 300 mg PO HS #30 tablet 12/20/16 [Rx] Mag Hydrox/Al Hydrox/Simeth [Maalox] 15 ml PO Q6HR PRN 12/25/16 [History] Magic Mouthwash [Magic Mouthwash BLM] 10 ml PO QID PRN #240 ml 12/25/16 [Rx] Ondansetron HCl [Zofran] 4 mg PO Q4H PRN #30 tablet 12/25/16 [Rx] Pantoprazole Sodium [Protonix] 40 mg PO DAILY 12/25/16 [History] Prochlorperazine Maleate [Compazine] 10 mg PO Q6H PRN #30 tablet 12/25/16 [Rx] Psyllium Husk (with Sugar) [Konsyl Psyllium Fiber Packet] 3.4 gm PO BID [History] Ranitidine HCl [Zantac] 150 mg PO BID #60 tablet 12/25/16 [Rx] Whey Protein Concen/Amino Acid [Whey Protein Concentrate Powd] 17 gm PO BID 06/12 [History] metroNIDAZOLE [Flagyl] 500 mg PO TID #15 tablet 12/25/16 [Rx] Furosemide [Lasix] 40 mg PO DAILY PRN #10 tablet 12/27/16 [Rx] Potassium Chloride [K-Tab ER] 20 meq PO DAILY PRN #10 tablet.er 12/27/16 [Rx] Allergies Penicillins Allergy (Verified 12/25/16 10:04) Difficulty Swallowing All Systems: A 10-system review of systems was performed and is negative for pertinent findings except as documented above in the HPI. Physical Examination Vital Signs: Vital Signs, Last 4 Hours Pulse Ox 12/31/16 10:30 91 General appearance: no acute distress, other (tired appearing) Eyes: nonicteric ENT: oropharynx moist Neck: supple Effort: normal Auscultation: left: diminished breath sounds, rales, rhonchi Cardiovascular: regular rate and rhythm Gastrointestinal: normoactive bowel sounds Integumentary: normal Extremities: edema (1+ b/l Pitting ) Musculoskeletal: no deformities normal mental status, non-focal exam mood appropriate Results - Laboratory Findings CBC and BMP: 12/31/16 07:36 12/31/16 07:36 PT/INR, D-dimer PT 14.8 Seconds (9.4-12.1) H 12/31/16 07:36 Abnormal lab findings: Abnormal lab results WBC 3.4 K/mcL (4.3-11.1) L 12/31/16 07:36 RBC 4.03 M/mcL (4.19-5.50) L 12/31/16 07:36 Hgb 11.1 g/dL (12.9-16.9) L 12/31/16 07:36 Hct 35.1 % (37.5-50.1) L 12/31/16 07:36 MCH 27.5 pg (28.0-33.3) L 12/31/16 07:36 Lymphocytes # 0.3 K/mcL (0.6-4.6) L 12/31/16 07:36 PT 14.8 Seconds (9.4-12.1) H 12/31/16 07:36 VBG pO2 127 mmHg (25-40) H 12/31/16 09:01 VBG HCO3 27.1 mEq/L (21-27) H 12/31/16 09:01 Sodium 133 mEq/L (136-145) L 12/31/16 07:36 Chloride 97 mEq/L (98-109) L 12/31/16 07:36 BUN 56 mg/dL (8-26) H 12/31/16 07:36 Creatinine 2.30 mg/dL (0.72-1.25) H 12/31/16 07:36 Est GFR ( Amer) 36 (> 60) L 12/31/16 07:36 Est GFR (Non-Af Amer) 30 (> 60) L 12/31/16 07:36 Glucose 114 mg/dL (70-99) H 12/31/16 07:36 POC Glucose 171 (58-89) H 12/31/16 11:42 Calcium 8.3 mg/dL (8.6-10.8) L 12/31/16 07:36 Magnesium 1.1 mg/dL (1.6-2.6) L 12/31/16 07:36 B-Natriuretic Peptide 104 pg/mL (0-100) H 12/31/16 07:36 Urine Protein 30 mg/dL (Neg-Trace) H 12/31/16 08:27 Urine Microscopic RBC 3-5 per hpf (0-3) H 12/31/16 08:27 Urine Microscopic WBC 3-5 per hpf (0-3) H 12/31/16 08:27 - Diagnostic Findings Chest x-ray: report reviewed, image reviewed CT scan - chest: report reviewed, image reviewed - Clinical Findings Intake & Output: Intake & Output 12/30/16 12/31/16 12/31/16 23:59 07:59 15:59 Intake Total 1100 / 1100 Balance 1100 / 1100 Consult Discharge Plan - Plan Referrals: Dionisio Dominique DO [Primary Care Provider] -
[2016-12-31] MEDS ORDERED: *HR* Morphine 2 MG/ML SYRINGE IVP ONE (16:22)
--- NOTE | 2016-12-31 16:50 | Electrocardiograph Report ---
[place] 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
[2017-01-01] MEDS: *HR* OxyCODONE/APAP 5/325 TABLET PO PRN ×2 (02:49→09:16)
[2017-01-01] MEDS: *HR* Enoxaparin 40 MG/0.4 ML SYRINGE SQ SCH (06:27)
[2017-01-01 06:33] LABS: Basophils % 0.1 %; Eosinophils % 0.1 %; Hematocrit 35.9 % (37.5-50.1); Hemoglobin 11.4 g/dL (12.9-16.9); Lymphocytes # 0.3 K/mcL (0.6-4.6); Lymphocytes % 4.2 %; Mean Corpuscular HGB Conc 31.8 g/dL (31.6-35.5); Mean Corpuscular Hemoglobin 27.4 pg (28.0-33.3); Mean Corpuscular Volume 86.3 fL (83.0-100.0); Mean Platelet Volume 9.5 fL (9.4-12.4); Monocytes % 0.6 %; Neutrophils # 6.5 K/mcL (1.6-8.9); Platelet Count 139 K/mcL (140-400); Red Blood Count 4.16 M/mcL (4.19-5.50); Red Cell Distribution Width 13.5 % (11.5-14.5)
[2017-01-01 06:46] LABS: Calcium 8.3 mg/dL (8.6-10.8)
--- NOTE | 2017-01-01 06:46 | Pulmonology Progress Note ---
Date of Encounter: 01/01/17 Time of Encounter: 06:46 Assessment and Plan (1) Acute and chronic respiratory failure with hypoxia Current Visit: Yes Status: Acute Impression: 1. Acute on Chronic Hypoxic Respiratory Failure 2. SCLC Invasive Bronchial Tumor with Post Obstructive PNA 3. Pleural Effusion 4. History of CHF 5. MICHELLE 6. COPD Recs: -Wean Fio2 to keep SaO2 >88. OOBTC, ambulation as safe and with supervision, encourage incentive linda -Cont ABx deeesclate pending cultures or in next 48 hours if negative. Plan for Bronchoscopy tomorrow send coags if not already obtained NPO at MD. A bronchoscopy is recommended. The procedure , risks, benefits, complications, and expected outcomes have been reviewed. Benefits of diagnosis, as well as risks to include bleeding, infection, pneumothorax which may require surgical intervention, and in a small population. The patient is aware that sometimes test is nondiagnostic. Discussed with patient and agrees to proceed. -Consider IR consult for drainage and Pleural Fluid studies including Cytology -Total Body overloaded but possibly intravascular deplete mami hold diuresis for MICHELLE. -Multifactorial MICHELLE improved from yesterday this is being evluated by primary medicine service -Cont MDIs and bronchodilators as scheduled. Burst prednisone 40mg x 5 days -Chemical DVT prophylaxis unless contraindication arises (2) Acute kidney injury Current Visit: Yes Status: Acute (3) SCLC (small cell lung carcinoma) Current Visit: Yes Status: Acute Qualifiers: Laterality: left Qualified Code(s): C34.92 - Malignant neoplasm of unspecified part of left bronchus or lung (4) COPD (chronic obstructive pulmonary disease) Current Visit: No Status: Acute Qualifiers: COPD type: COPD with acute lower respiratory infection Qualified Code(s): J44.0 - Chronic obstructive pulmonary disease with acute lower respiratory infection (5) Mass of left lung Current Visit: No Status: Acute (6) Postobstructive pneumonia Current Visit: No Status: Acute (7) Rheumatoid arthritis Current Visit: No Status: Acute Qualifiers: Rheumatoid arthritis location: unspecified site Rheumatoid factor presence : unspecified presence Qualified Code(s): M06.9 - Rheumatoid arthritis, unspecified Subjective Principal diagnosis: Pneumonia Interval history: Feels a bit better day. Less cough. Denies fevers or hemoptysis. Objective PUL Vital signs: Last Vital Signs Temp 97.8 F 01/01/17 05:01 Pulse 90 01/01/17 05:01 Resp 18 01/01/17 05:01 BP 137/89 01/01/17 05:01 Pulse Ox 93 01/01/17 05:01 General appearance: no acute distress Auscultation: left: diminished breath sounds, rhonchi, bilateral: rales Cardiovascular: regular rate and rhythm Gastrointestinal: normoactive bowel sounds Extremities: edema normal mental status, non-focal exam mood appropriate (e) Results - Laboratory Findings CBC and BMP: 01/01/17 06:23 01/01/17 06:23 PT/INR, D-dimer PT 14.8 Seconds (9.4-12.1) H 12/31/16 07:36 Abnormal lab findings: Abnormal lab results RBC 4.16 M/mcL (4.19-5.50) L 01/01/17 06:23 Hgb 11.4 g/dL (12.9-16.9) L 01/01/17 06:23 Hct 35.9 % (37.5-50.1) L 01/01/17 06:23 MCH 27.4 pg (28.0-33.3) L 01/01/17 06:23 Plt Count 139 K/mcL (140-400) L 01/01/17 06:23 Lymphocytes # 0.3 K/mcL (0.6-4.6) L 01/01/17 06:23 PT 14.8 Seconds (9.4-12.1) H 12/31/16 07:36 VBG pO2 127 mmHg (25-40) H 12/31/16 09:01 VBG HCO3 27.1 mEq/L (21-27) H 12/31/16 09:01 Sodium 133 mEq/L (136-145) L 12/31/16 07:36 Chloride 97 mEq/L (98-109) L 12/31/16 07:36 BUN 56 mg/dL (8-26) H 12/31/16 07:36 Creatinine 2.30 mg/dL (0.72-1.25) H 12/31/16 07:36 Est GFR ( Amer) 36 (> 60) L 12/31/16 07:36 Est GFR (Non-Af Amer) 30 (> 60) L 12/31/16 07:36 Glucose 114 mg/dL (70-99) H 12/31/16 07:36 POC Glucose 289 (58-89) H 12/31/16 20:24 Calcium 8.3 mg/dL (8.6-10.8) L 12/31/16 07:36 Magnesium 1.1 mg/dL (1.6-2.6) L 12/31/16 07:36 B-Natriuretic Peptide 104 pg/mL (0-100) H 12/31/16 07:36 Urine Protein 30 mg/dL (Neg-Trace) H 12/31/16 08:27 Urine Microscopic RBC 3-5 per hpf (0-3) H 12/31/16 08:27 Urine Microscopic WBC 3-5 per hpf (0-3) H 12/31/16 08:27 - Microbiology Findings Microbiology Findings: Microbiology, Last 48 Hours 12/31/16 17:23 Sputum Culture - Preliminary Sputum - Clinical Findings Intake & Output: Intake & Output 12/31/16 12/31/16 01/01/17 15:59 23:59 07:59 Intake Total 360 / 360 1200 / 1200 Output Total 0 / 0 Balance 360 / 360 1200 / 1200 Consult Discharge Plan - Plan Referrals: Dionisio Dominique DO [Primary Care Provider] -
[2017-01-01] MEDS: Insulin LISPRO 300 UNITS/3 ML VIAL SQ SCH ×4 (08:23→19:54)
[2017-01-01] MEDS: Ertapenem 1,000 MG in 0.9 % Sodium Chloride Mini Bag 100 ML IVPB SCH (08:24)
[2017-01-01] MEDS: Nicotine 21 MG PATCH.TD24 TD SCH (09:16)
[2017-01-01 09:26] LABS: Uric Acid 8.6 mg/dL (3.5-7.2)
[2017-01-01] MEDS: Albuterol 2.5 MG/3 ML NEBULIZER IH SCH ×3 (11:15→21:18)
[2017-01-01] MEDS: *HR* OxyCODONE/APAP 5/325 TABLET PO SCH ×3 (12:01→19:55)
[2017-01-01] MEDS ORDERED: 0.9 % Sodium Chloride 500 ML IVC ONE (12:06)
--- NOTE | 2017-01-01 12:10 | Internal Med Progress Note ---
<NakiaMinh duenas - Last Filed: 01/01/17 12:07> Date of Encounter: 01/01/17 Time of Encounter: 12:08 - Assessment and plan (1) SCLC (small cell lung carcinoma) Current Visit: Yes Status: Acute Assessment and plan: Recently diagnosed, completed [address] performed at this admission appears to show worsening of disease. Pulmonolgy is following, plan for bronchoscopy tomorrow to evaluate for obstruction. Oncology has been consulted, patient may benefit from further chemo and/or radiation to facilite tumor reduction. Qualifiers: Laterality: left Qualified Code(s): C34.92 - Malignant neoplasm of unspecified part of left bronchus or lung (2) Postobstructive pneumonia Current Visit: No Status: Acute Assessment and plan: In the setting of small cell lung cancer as discussed above. Plan for bronchoscopy. Sputum cultures and blood cultures have been negative to date. Patient appears to be improving clinically. Continue broad-spectrum antibiotics with ertapenem and Levaquin. (3) Acute kidney injury Current Visit: Yes Status: Acute Assessment and plan: Creatinine 2.3 on presentation, down to 2.06 today, patient appears to have normal renal function at baseline. Patient is still having good urine output. Likely prerenal, although tumor lysis syndrome is also a concern given the patient's recent chemotherapy treatments. Potassium and uric acid are slightly elevated however feel tumor lysis syndrome is less likely at this time. We will give intermittent fluid boluses, and encourage oral intake. We will hold off on maintenance fluid as the patient has a known EF of 40-45%. (4) Type 2 diabetes mellitus Current Visit: No Status: Acute Assessment and plan: Blood sugar under good control, continue sliding scale Qualifiers: Diabetes mellitus complication status: without complication Diabetes mellitus halfway insulin use: with halfway use Qualified Code(s): E11.9 - Type 2 diabetes mellitus without complications; Z79.4 - terminal system operator (current) use of insulin - Subjective Interval history: Patient seen and examined at bedside. Patient states that he feels much better today. He feels his shortness of breath is greatly improved. He still reports an occasional productive cough but this appears to be improving. He denies chest pain, abdominal pain, nausea, vomiting. - Constitutional Vitals: Temp Pulse Resp BP Pulse Ox 98.0 F 86 16 123/76 95 01/01/17 10:54 01/01/17 10:54 01/01/17 11:19 01/01/17 10:54 01/01/17 11:19 General appearance: Present: A&O X 3, no acute distress, answers questions appropriately - Respiratory Respiratory exam: Present: wheezes (Diffuse, throughout). Absent: rales, respiratory distress, rhonchi, tachypnea - Cardiovascular Cardiovascular exam: Present: RRR. Absent: gallop, rubs, systolic murmur - GI/Abdominal GI/Abdominal exam: Present: normal bowel sounds, soft. Absent: distended, tenderness - Extremities Exam Extremities exam: Present: pedal edema (1+), warm. Absent: tenderness - Neurological Exam Neurological exam: Present: alert, CN II-XII intact, oriented X3, no focal deficits Internal Medicine: Result - Labs CBC & Chem 7: 01/01/17 06:23 01/01/17 06:23 Labs: Short CBC 01/01/17 Range/Units 06:23 WBC 6.9 D (4.3-11.1) K/mcL Hgb 11.4 L (12.9-16.9) g/dL Hct 35.9 L (37.5-50.1) % Plt Count 139 L (140-400) K/mcL Neutrophils # 6.5 (1.6-8.9) K/mcL BMP 01/01/17 06:23 Sodium 133 L Potassium 5.0 H Chloride 98 Carbon Dioxide 27 BUN 52 H Creatinine 2.06 H Glucose 176 H Calcium 8.3 L - ABG Interpretation ABG results: PT/INR, D-dimer PT 14.8 Seconds (9.4-12.1) H 12/31/16 07:36 Consult Discharge Plan - Plan Referrals: Dionisio Dominique DO [Primary Care Provider] - <Gus Mazariegos - Last Filed: 01/01/17 19:51> Date of Encounter: 01/01/17 - Assessment and plan (1) Pneumonia Current Visit: Yes Status: Suspected Qualifiers: Pneumonia type: due to other aerobic Gram-negative bacteria Laterality: left Lung location: upper lobe of lung Qualified Code(s): J15.6 - Pneumonia due to other aerobic Gram-negative bacteria (2) SCLC (small cell lung carcinoma) Current Visit: Yes Status: Acute Qualifiers: Laterality: left Qualified Code(s): C34.92 - Malignant neoplasm of unspecified part of left bronchus or lung (3) Tumor lysis syndrome following antineoplastic drug therapy Current Visit: Yes Status: Acute (4) COPD (chronic obstructive pulmonary disease) Current Visit: No Status: Acute Qualifiers: COPD type: COPD with acute lower respiratory infection Qualified Code(s): J44.0 - Chronic obstructive pulmonary disease with acute lower respiratory infection (5) Rheumatoid arthritis Current Visit: No Status: Chronic Qualifiers: Rheumatoid arthritis location: unspecified site Rheumatoid factor presence : unspecified presence Qualified Code(s): M06.9 - Rheumatoid arthritis, unspecified (6) Tobacco abuse Current Visit: No Status: Acute (7) Type 2 diabetes mellitus Current Visit: No Status: Acute Qualifiers: Diabetes mellitus complication status: without complication Diabetes mellitus terminal system operator insulin use: with terminal system operator use Qualified Code(s): E11.9 - Type 2 diabetes mellitus without complications; Z79.4 - correction (current) use of insulin (8) Sepsis Current Visit: Yes Status: Ruled-out Qualifiers: Sepsis type: sepsis due to unspecified organism Qualified Code(s): A41.9 - Sepsis, unspecified organism (9) CHF (congestive heart failure) Current Visit: Yes Status: Chronic Qualifiers: Congestive heart failure type: systolic Congestive heart failure chronicity : chronic Qualified Code(s): I50.22 - Chronic systolic (congestive) heart failure - Constitutional Vitals: Temp Pulse Resp BP Pulse Ox 97.9 F 93 16 132/79 93 01/01/17 15:57 01/01/17 15:57 01/01/17 15:59 01/01/17 15:57 01/01/17 15:59 Internal Medicine: Result - Labs CBC & Chem 7: 01/01/17 06:23 01/01/17 06:23 Labs: Short CBC 01/01/17 Range/Units 06:23 WBC 6.9 D (4.3-11.1) K/mcL Hgb 11.4 L (12.9-16.9) g/dL Hct 35.9 L (37.5-50.1) % Plt Count 139 L (140-400) K/mcL Neutrophils # 6.5 (1.6-8.9) K/mcL BMP 01/01/17 06:23 Sodium 133 L Potassium 5.0 H Chloride 98 Carbon Dioxide 27 BUN 52 H Creatinine 2.06 H Glucose 176 H Calcium 8.3 L - ABG Interpretation ABG results: PT/INR, D-dimer PT 14.8 Seconds (9.4-12.1) H 12/31/16 07:36 - Impressions Impressions Thoracentesis Ultrasound 01/01/17 09:39 IMPRESSION: Successful ultrasound guided thoracentesis. D/ 01/01/2017 15:57:00 Syd Stephenson MD / [facility] Interpreting Provider: Syd Stephenson MD Chest X-Ray 01/01/17 13:31 IMPRESSION: 1. Status post left thoracentesis without obvious pneumothorax. 2. Masslike consolidation in the left hemithorax with layering effusion persists. 3. Ground-glass opacities in the right lung, likely represent infection. D/ / 01/01/2017 14:18:37 Annita Johntson MD / [facility] Interpreting Provider: Annita Johnston MD - Attending Attestation I examined this patient and my medical decision-making was reviewed with the Resident Physician on 01/01/17. I agree with the documented findings, disposition and treatment plan as described except to the extent set forth below. Mr. Miller is currently admitted for acute postobstructive pneumonia. He is moderate to high risk due to potential for worsening respiratory status. Mr. Miller feels OK. He had thoracentesis today. Still with cough. No fever or chills. May have bronch tomorrow. Exam Alert. Comfortable Mucus membranes dry Heart reg Lungs with end exp wheeze bilaterally Abd soft No edema I/P 1. SCLC 2. Pleural effusion 3. Smoker Further diagnoses and plan as above.
[2017-01-01] MEDS ORDERED: Magnesium Sulfate 2 GM in D5% in Water 100 ML IVPB ONE (12:22)
--- NOTE | 2017-01-01 13:57 | IR Procedure Note ---
Date of procedure: 01/01/17 Consent Obtained: Verbal consent, Written consent Timeout: Correct patient and procedure verified, Correct site verified, Time out performed, Skin prep completed Local anesthetic: Lidocaine 1% Indications: Pleural effusion Procedure Performed: Thoracentesis Site/Technique: Left thoracentesis performed Results/Findings: Moderate hemorrhagic pleural effusion Estimated blood loss (cc): 1 Complications: None; Tolerated procedure well Post Procedure Treatment Plan: Continue inpatient care
[2017-01-01 14:35] LABS: LDH,Pleural Fluid 488 Units/L (No Ref Range)
[2017-01-01 14:40] LABS: RBC,Pleural Fluid 0.238 M/mcL
--- NOTE | 2017-01-01 14:57 | Oncology Inp Consult Note ---
<Dariela Benavidez E - Last Filed: 01/01/17 14:50> Date of Encounter: 01/01/17 Time of Encounter: 12:00 Assessment and Plan (1) Tumor lysis syndrome following antineoplastic drug therapy Status: Acute Assessment and plan: Patient was given Allopurinol RX for tumor lysis syndrome prophylaxis. He states he has been on this medication for 2 years he has taken at each day with Saturday being the last day it was taken. Being that he presents with symptoms of tumor lysis syndrome while on allopurinol recommend that he receive rasburicase 10 mg IV. (2) Acute kidney injury Status: Acute Assessment and plan: Functioning can follow this plan chemotherapy however the patient also has symptoms of tumor lysis syndrome. Nephrology consult is recommended. (3) SCLC (small cell lung carcinoma) Status: Acute Assessment and plan: Cycle 1 cisplatin and CREDENTIALER 16 given on 12/25/2016. Staging incomplete at this time possible stage IV dependant on pleural fluid. Was having thoracentesis today. Will await results. Qualifiers: Laterality: left Qualified Code(s): C34.92 - Malignant neoplasm of unspecified part of left bronchus or lung - Data of Consult Patient: known to practice within the last 3 years Consult date: 01/01/17 Requesting Physician: Gus Mazariegos DO Primary Care Provider: Dionisio Dominique DO - Consult Narrative Reason for consult: Small cell lung cancer, worsening shortness of breath History of present illness: Mr. Miller is a 56 year old male with past medical history of this, coronary artery disease, hypertension, congestive heart failure and small cell carcinoma of the lung. He is receiving chemotherapy. His first cycle was given on December 25 at that time he received cisplatin day 1 and CREDENTIALER-16 day 1 through 3. He was admitted to [facility] through the emergency room if he presented with an elevated temperature up to 102 and worsening shortness of breath. 12/31, chest x-ray showed total white out of left hemithorax. CT scan of the chest on 2016 indicates: Progressive metastatic lymphadenopathy with infiltrative left hilar mass resulting in left upper lobe bronchial obstruction and now complete left upper lobe atelectasis. Progressive malignant moderate to large left pleural effusion. New mild patchy central right upper lobe and essentially stable extensive left lower lobe consolidative changes. Superimposed infectious process cannot be excluded versus possible metastatic disease. There is also questionable 1.4 cm left hepatic lobe hypodense lesion which could represent vascular channels versus possible metastatic lesion. This could BE further evaluated with a CT of the abdomen with contrast. There is also a non-displaced stable incomplete lesion healed left lateral eighth rib fracture no evidence of osseous metastatic disease. He also has acute kidney injury. Prior to starting treatment his creatinine was 0.76. On 2016 BUN was 56, creatinine 2.3, GFR 36. He also has an elevated uric acid of 8.6, potassium 5.0, a low calcium. It is felt that he most likely has tumor lysis syndrome. The patient was given prophylactic allopurinol 300mg by mouth at at bedtime which he had taken until Saturday. He states he had been on this medication for approximately 2 years. we would recommend rasburicase 10 mg IV. Nephrology consult. Pulmonary blood cultures remained negative. Patient seen, examination bedside chart reviewed. He states that he is feeling better. He is not as short of breath. He continues to have oxygen at 4 L/m per nasal cannula. He is scheduled to have a left chest thoracentesis today. Past Med Surg Social Fam HX - Past Medical History Medical history: arthritis, CHF, COPD, diabetes, hypertension, TIA Psychiatric history: no psych history - Past Surgical History Surgical History: appendectomy - Social History Smoking Status: Former smoker Smokeless Tobacco Status: No Alcohol use: none Drug use: none - Family History Father Living Status: Hx Family Respiratory Disorders: Yes (Emphysema) Hx Family Neurologic Disorders: Yes (Stroke) Medications and Allergies Albuterol Sulfate [Albuterol Inhaler] 2 puff IH Q4H PRN 11/28/16 [History] Aspirin 325 mg PO DAILY 11/28/16 [History] Carvedilol [Coreg] 6.25 mg PO BIDWM 11/28/16 [History] Finasteride [Proscar] 5 mg PO DAILY 11/28/16 [History] Fluticasone Propionate Nasal [Flonase] 1 spray NS BID 11/28/16 [History] Hydroxychloroquine [Plaquenuil] 400 mg PO DAILY 11/28/16 [History] Insulin Glargine,Hum.rec.anlog [Touata Solostar] 50 units SQ QPM 11/28/16 [ History] Ipratropium/Albuterol Neb [Duoneb] 3 ml IH Q6HR 11/28/16 [History] Leflunomide [Arava] 20 mg PO DAILY 11/28/16 [History] Lisinopril [Zestril] 20 mg PO BID 11/28/16 [History] Metformin HCl [Glucophage] 1,000 mg PO BID 11/28/16 [History] Simvastatin [Zocor] 20 mg PO HS 11/28/16 [History] Acetaminophen [Tylenol] 1,000 mg PO Q6HR PRN 12/14/16 [History] Fluticasone/Vilanterol [Breo Ellipta 100-25 Mcg INH] 1 puff IH DAILY 12/14/16 [ History] diazePAM [Valium] 10 mg PO BID PRN #5 tablet 12/14/16 [Rx] Allopurinol [Zyloprim 300 MG] 300 mg PO HS #30 tablet 12/20/16 [Rx] Mag Hydrox/Al Hydrox/Simeth [Maalox] 15 ml PO Q6HR PRN 12/25/16 [History] Magic Mouthwash [Magic Mouthwash BLM] 10 ml PO QID PRN #240 ml 12/25/16 [Rx] Ondansetron HCl [Zofran] 4 mg PO Q4H PRN #30 tablet 12/25/16 [Rx] Pantoprazole Sodium [Protonix] 40 mg PO DAILY 12/25/16 [History] Prochlorperazine Maleate [Compazine] 10 mg PO Q6H PRN #30 tablet 12/25/16 [Rx] Psyllium Husk (with Sugar) [Konsyl Psyllium Fiber Packet] 3.4 gm PO BID [History] Ranitidine HCl [Zantac] 150 mg PO BID #60 tablet 12/25/16 [Rx] Whey Protein Concen/Amino Acid [Whey Protein Concentrate Powd] 17 gm PO BID 06/12 [History] metroNIDAZOLE [Flagyl] 500 mg PO TID #15 tablet 12/25/16 [Rx] Furosemide [Lasix] 40 mg PO DAILY PRN #10 tablet 12/27/16 [Rx] Potassium Chloride [K-Tab ER] 20 meq PO DAILY PRN #10 tablet.er 12/27/16 [Rx] Allergies Penicillins Allergy (Verified 12/25/16 10:04) Difficulty Swallowing All systems: reviewed and no additional remarkable complaints except as stated Constitutional: Present: fatigue, weakness, other (poor appetite) Cardiovascular: Present: chest pain (with soreness associated with coughing) Respiratory: Present: cough, dyspnea on exertion, chest congestion, pain with cough Integumentary: Present: other (soreness of "tail bone area" with skin irriation for previous diarrhea) Oncology - Exam - Constitutional Vitals: Temp Pulse Resp BP Pulse Ox 98.0 F 86 16 123/76 95 01/01/17 10:54 01/01/17 10:54 01/01/17 11:19 01/01/17 10:54 01/01/17 11:19 General appearance: cooperative, no acute distress, obese - Head Head exam: Present: normal inspection, normocephalic - ENT ENT exam: Present: mucous membranes moist (no evidence of thrush) - Neck Neck exam: Present: normal inspection - Respiratory Respiratory exam: Present: decreased breath sounds (L chest), rhonchi - Cardiovascular Cardiovascular exam: Present: RRR - GI/Abdominal GI/Abdominal exam: Present: normal bowel sounds, soft - Extremities Exam Extremities exam: Present: pedal edema (dressing to left lower leg "fluid blister", edema bilateral lower extremities.) - Neurological Exam Neurological exam: Present: alert, oriented X3 Oncology - Results - Labs Labs: Short CBC 01/01/17 Range/Units 06:23 WBC 6.9 D (4.3-11.1) K/mcL Hgb 11.4 L (12.9-16.9) g/dL Hct 35.9 L (37.5-50.1) % Plt Count 139 L (140-400) K/mcL Neutrophils # 6.5 (1.6-8.9) K/mcL BMP 01/01/17 06:23 Sodium 133 L Potassium 5.0 H Chloride 98 Carbon Dioxide 27 BUN 52 H Creatinine 2.06 H Glucose 176 H Calcium 8.3 L Consult Discharge Plan - Plan Referrals: Dionisio Dominique DO [Primary Care Provider] - <Cindy Peguero - Last Filed: 01/01/17 19:12> Date of Encounter: 01/01/17 - Data of Consult Requesting Physician: Gus Mazariegos DO Primary Care Provider: Dionisio Dominique DO - Consult Narrative History of present illness: I examined this patient and my medical decision-making was reviewed with the Advanced Practice Nurse. I agree with the documented findings, disposition and treatment plan as described except to the extent set forth below. PAtient is feeling better, SOB improved on O2. Lower ext swelling and skin peeling. Labs parameters suggestive of possible tumor lysis. Rasburicase ordered and fluid/electrolyte management. Thoracentesis planned. Consider nephrology evaluation. Plan of care discussed with patient in detail. Oncology - Exam - Constitutional Vitals: Temp Pulse Resp BP Pulse Ox 97.9 F 93 16 132/79 93 01/01/17 15:57 01/01/17 15:57 01/01/17 15:59 01/01/17 15:57 01/01/17 15:59 Oncology - Results - Labs Labs: Short CBC 01/01/17 Range/Units 06:23 WBC 6.9 D (4.3-11.1) K/mcL Hgb 11.4 L (12.9-16.9) g/dL Hct 35.9 L (37.5-50.1) % Plt Count 139 L (140-400) K/mcL Neutrophils # 6.5 (1.6-8.9) K/mcL BMP 01/01/17 06:23 Sodium 133 L Potassium 5.0 H Chloride 98 Carbon Dioxide 27 BUN 52 H Creatinine 2.06 H Glucose 176 H Calcium 8.3 L
[2017-01-01 15:16] LABS: Appearance of Pleural Fl Bloody (Clear)
[2017-01-01] MEDS ORDERED: Rasburicase 10 MG in 0.9 % Sodium Chloride 50 ML IVPB ONE (15:30)
[2017-01-01 18:05] LABS: Creatinine,Urine 56 mg/dL; Microalbum/Creatinine Ratio,Ur 96 (0-30); Microalbumin,Urine 54 mg/L
[2017-01-01] MEDS: Ondansetron 4 MG/2 ML VIAL IVP PRN (19:39)
[2017-01-02] MEDS: *HR* OxyCODONE/APAP 5/325 TABLET PO SCH ×5 (00:24→21:14)
[2017-01-02 04:07] LABS: Basophils % 0.3 %; Eosinophils % 1.1 %; Hematocrit 34.8 % (37.5-50.1); Hemoglobin 10.9 g/dL (12.9-16.9); Immature Granulocytes % 0.5 % (0-4); Lymphocytes # 0.3 K/mcL (0.6-4.6); Mean Corpuscular HGB Conc 31.3 g/dL (31.6-35.5); Mean Corpuscular Hemoglobin 27.3 pg (28.0-33.3); Mean Platelet Volume 10.6 fL (9.4-12.4); Monocytes # 0.1 K/mcL (0.0-1.3); Monocytes % 1.9 %; Neutrophils # 3.3 K/mcL (1.6-8.9); Platelet Count 125 K/mcL (140-400); Red Cell Distribution Width 13.6 % (11.5-14.5); Segmented Neutrophils % 87.2 %
[2017-01-02 04:10] LABS: INR 1.3; Prothrombin Time 13.6 Seconds (9.4-12.1)
[2017-01-02 04:25] LABS: Alanine Aminotransferase 21 Units/L (0-55); Albumin 2.2 g/dL (3.5-5.0); Albumin/Globulin Ratio 0.6 (1.1-2.2); Alkaline Phosphatase 58 Units/L (38-126); Aspartate Amino Transferase 25 Units/L (5-34); BUN/Creatinine Ratio 23 (6-26); Bilirubin,Direct 0.2 mg/dL (0.0-0.5); Bilirubin,Indirect 0.2 mg/dL (0.0-1.2); Bilirubin,Total 0.4 mg/dL (0.2-1.2); Blood Urea Nitrogen 36 mg/dL (8-26); Calcium 7.9 mg/dL (8.6-10.8); Carbon Dioxide 28 mEq/L (19-29); Chloride 101 mEq/L (98-109); Globulin 3.7 g/dL (2.4-3.5); Glucose 130 mg/dL (70-99); Magnesium 1.2 mg/dL (1.6-2.6); Osmolality,Calculated 288 (280-300); Sodium 134 mEq/L (136-145); Total Protein 5.9 g/dL (6.0-8.3); eGFR For African Americans 55 (> 60); eGFR For Non-African Americans 46 (> 60)
[2017-01-02] MEDS: Albuterol 2.5 MG/3 ML NEBULIZER IH SCH ×4 (04:35→21:40)
[2017-01-02] MEDS ORDERED: *HR* Morphine 2 MG/ML SYRINGE IVP PRN (05:06)
[2017-01-02] MEDS: *HR* Morphine 2 MG/ML SYRINGE IVP PRN ×2 (05:25→09:57)
--- NOTE | 2017-01-02 06:53 | Pulmonology Progress Note ---
Date of Encounter: 01/02/17 Time of Encounter: 06:53 Assessment and Plan (1) Acute and chronic respiratory failure with hypoxia Current Visit: Yes Status: Acute Impression: 1. Acute on Chronic Hypoxic Respiratory Failure 2. SCLC Invasive Bronchial Tumor with Post Obstructive PNA 3. Pleural Effusion 4. History of CHF 5. MICHELLE 6. COPD Recs: -Wean Fio2 to keep SaO2 >88. OOBTC, ambulation as safe and with supervision, encourage incentive linda -Cont ABx deeesclate pending cultures or in next 24 hours if negative. Plan for Bronchoscopy today with possible tumor debulking. Consider Timing MRI while under anesthesia (i spoke to Housestaff regarding this) -Appears malignant f/u Final Cytology -Total Body overloaded but possibly intravascular deplete mami hold diuresis for MICHELLE. -Multifactorial MICHELLE improved from yesterday, Oncology feels that this represents TLS and Rasburicase given. Agree with Nephrology consult -Cont MDIs and bronchodilators as scheduled. Burst prednisone 40mg x 5 days -Chemical DVT prophylaxis unless contraindication arises (2) Acute kidney injury Current Visit: Yes Status: Acute (3) SCLC (small cell lung carcinoma) Current Visit: Yes Status: Acute Qualifiers: Laterality: left Qualified Code(s): C34.92 - Malignant neoplasm of unspecified part of left bronchus or lung (4) COPD (chronic obstructive pulmonary disease) Current Visit: No Status: Acute Qualifiers: COPD type: COPD with acute lower respiratory infection Qualified Code(s): J44.0 - Chronic obstructive pulmonary disease with acute lower respiratory infection (5) Mass of left lung Current Visit: No Status: Acute (6) Postobstructive pneumonia Current Visit: No Status: Acute Subjective Principal diagnosis: Pneumonia Interval history: Continues to improve clinically. Had IR perform thoracentesis yesterday this improved breathing marginally. He feels a little sore after. Denies fevers or hemoptysis. Objective PUL Vital signs: Last Vital Signs Temp 100.7 F H 01/02/17 06:44 Pulse 108 01/02/17 06:44 Resp 17 01/02/17 06:44 BP 142/78 01/02/17 06:44 Pulse Ox 93 01/02/17 06:44 General appearance: no acute distress Auscultation: left: clear, bilateral: rales Cardiovascular: regular rate and rhythm Extremities: edema normal mental status, non-focal exam Results - Laboratory Findings CBC and BMP: 01/02/17 03:06 01/02/17 03:06 PT/INR, D-dimer PT 13.6 Seconds (9.4-12.1) H 01/02/17 03:06 Abnormal lab findings: Abnormal lab results WBC 3.8 K/mcL (4.3-11.1) L 01/02/17 03:06 RBC 4.00 M/mcL (4.19-5.50) L 01/02/17 03:06 Hgb 10.9 g/dL (12.9-16.9) L 01/02/17 03:06 Hct 34.8 % (37.5-50.1) L 01/02/17 03:06 MCH 27.3 pg (28.0-33.3) L 01/02/17 03:06 MCHC 31.3 g/dL (31.6-35.5) L 01/02/17 03:06 Plt Count 125 K/mcL (140-400) L 01/02/17 03:06 Lymphocytes # 0.3 K/mcL (0.6-4.6) L 01/02/17 03:06 PT 13.6 Seconds (9.4-12.1) H 01/02/17 03:06 VBG pO2 127 mmHg (25-40) H 12/31/16 09:01 VBG HCO3 27.1 mEq/L (21-27) H 12/31/16 09:01 Sodium 134 mEq/L (136-145) L 01/02/17 03:06 Potassium 5.0 mEq/L (3.5-4.5) H 01/02/17 03:06 BUN 36 mg/dL (8-26) H D 01/02/17 03:06 Creatinine 1.58 mg/dL (0.72-1.25) H 01/02/17 03:06 Est GFR ( Amer) 55 (> 60) L 01/02/17 03:06 Est GFR (Non-Af Amer) 46 (> 60) L 01/02/17 03:06 Glucose 130 mg/dL (70-99) H 01/02/17 03:06 POC Glucose 289 (58-89) H 12/31/16 20:24 Uric Acid 8.6 mg/dL (3.5-7.2) H 01/01/17 06:23 Calcium 7.9 mg/dL (8.6-10.8) L 01/02/17 03:06 Magnesium 1.2 mg/dL (1.6-2.6) L 01/02/17 03:06 B-Natriuretic Peptide 104 pg/mL (0-100) H 12/31/16 07:36 Serum Total Protein 5.9 g/dL (6.0-8.3) L 01/02/17 03:06 Albumin 2.2 g/dL (3.5-5.0) L 01/02/17 03:06 Globulin 3.7 g/dL (2.4-3.5) H 01/02/17 03:06 Albumin/Globulin Ratio 0.6 (1.1-2.2) L 01/02/17 03:06 Urine Protein 30 mg/dL (Neg-Trace) H 12/31/16 08:27 Urine Microscopic RBC 3-5 per hpf (0-3) H 12/31/16 08:27 Urine Microscopic WBC 3-5 per hpf (0-3) H 12/31/16 08:27 Microalb/Creat Ratio 96 (0-30) H 01/01/17 17:12 Pleural Appearance Bloody (Clear) A 01/01/17 13:30 Pleural RBC 0.238 M/mcL (0.000-0.002) H 01/01/17 13:30 - Microbiology Findings Microbiology Findings: Microbiology, Last 48 Hours 12/31/16 17:23 Sputum Culture - Preliminary Sputum 01/01/17 13:30 Gram Stain - Final Pleural Fluid - Clinical Findings Intake & Output: Intake & Output 01/01/17 01/01/17 01/02/17 15:59 23:59 07:59 Intake Total 960 / 960 50 / 50 Output Total 300 / 300 150 / 150 Balance 660 / 660 -100 / -100 Consult Discharge Plan - Plan Referrals: Dionisio Dominique DO [Primary Care Provider] -
[2017-01-02] MEDS: Insulin LISPRO 300 UNITS/3 ML VIAL SQ SCH ×4 (07:20→21:15)
[2017-01-02] MEDS: Nicotine 21 MG PATCH.TD24 TD SCH (07:25)
[2017-01-02 07:48] LABS: INR 1.3; Prothrombin Time 13.7 Seconds (9.4-12.1)
[2017-01-02 07:51] LABS: Activated Partial Thrombo Time 24.2 Seconds (26.0-36.0)
--- NOTE | 2017-01-02 08:17 | Event Note ---
Date of Encounter: 01/02/17 Time of Encounter: 08:15 Consulted for Nephrology, however noted Dr. William from [facility] on previous lab reports. Floor charge nurse notified and states she will notify Hospitalist.
[2017-01-02] MEDS: Ertapenem 1,000 MG in 0.9 % Sodium Chloride Mini Bag 100 ML IVPB SCH (09:28)
[2017-01-02] MEDS: Lisinopril 20 MG TABLET PO SCH (09:29)
--- NOTE | 2017-01-02 09:53 | Internal Med Progress Note ---
<Minh Rivera - Last Filed: 01/02/17 09:50> Date of Encounter: 01/02/17 Time of Encounter: 09:51 - Assessment and plan (1) SCLC (small cell lung carcinoma) Current Visit: Yes Status: Acute Assessment and plan: Recently diagnosed, completed [address] performed at this admission appears to show worsening of disease. Bronchoscopy today per pulmonology. Based on results and possible intervention will discuss with oncology about further treatments to reduce tumor burden. Qualifiers: Laterality: left Qualified Code(s): C34.92 - Malignant neoplasm of unspecified part of left bronchus or lung (2) Postobstructive pneumonia Current Visit: No Status: Acute Assessment and plan: In the setting of small cell lung cancer as discussed above. Plan for bronchoscopy today. Sputum cultures and blood cultures have been negative to date. We will obtain cultures from bronchoscopy today. Patient appears to be continually improving. Continue broad-spectrum antibiotics with ertapenem and Levaquin. (3) Acute kidney injury Current Visit: Yes Status: Acute Assessment and plan: Creatinine 2.3 on presentation, down to 1.58 today, patient appears to have normal renal function at baseline. Patient is still having good urine output. Likely related to tumor lysis syndrome as discussed above. Potassium is stable today. He has received intermittent fluid boluses however we are holding off on maintenance fluid due to known EF of 40-45%. Nephrology has been consulted. (4) Tumor lysis syndrome following antineoplastic drug therapy Current Visit: Yes Status: Acute Assessment and plan: In the setting of small cell lung cancer status post treatment. Patient was on allopurinol previously, received 1 dose of rasburicase yesterday. (5) Type 2 diabetes mellitus Current Visit: No Status: Acute Assessment and plan: Blood sugar under good control, continue sliding scale Qualifiers: Diabetes mellitus complication status: without complication Diabetes mellitus shelter insulin use: with intermediate manager use Qualified Code(s): E11.9 - Type 2 diabetes mellitus without complications; Z79.4 - termination clerk (current) use of insulin - Subjective Interval history: Patient seen and examined at bedside. Patient states that he continues to improve. He feels his shortness of breath is greatly improved but he still has occasional shortness of breath with exertion. He still reports an occasional productive cough but this appears to be improving. He denies chest pain, abdominal pain, nausea, vomiting. - Constitutional Vitals: Temp Pulse Resp BP Pulse Ox 100.7 F H 108 17 142/78 93 01/02/17 06:44 01/02/17 06:44 01/02/17 06:44 01/02/17 06:44 01/02/17 06:44 General appearance: Present: A&O X 3, no acute distress, answers questions appropriately - Respiratory Respiratory exam: Present: wheezes (Diffuse). Absent: rales, rhonchi - Cardiovascular Cardiovascular exam: Present: RRR. Absent: gallop, rubs, systolic murmur - GI/Abdominal GI/Abdominal exam: Present: normal bowel sounds, soft. Absent: distended, tenderness - Extremities Exam Extremities exam: Present: pedal edema (1+), warm. Absent: tenderness - Neurological Exam Neurological exam: Present: alert, CN II-XII intact, oriented X3, no focal deficits Internal Medicine: Result - Labs CBC & Chem 7: 01/02/17 03:06 01/02/17 03:06 Labs: Short CBC 01/02/17 Range/Units 03:06 WBC 3.8 L (4.3-11.1) K/mcL Hgb 10.9 L (12.9-16.9) g/dL Hct 34.8 L (37.5-50.1) % Plt Count 125 L (140-400) K/mcL Neutrophils # 3.3 (1.6-8.9) K/mcL BMP 01/02/17 03:06 Sodium 134 L Potassium 5.0 H Chloride 101 Carbon Dioxide 28 BUN 36 H D Creatinine 1.58 H Glucose 130 H Calcium 7.9 L Liver Function 01/02/17 Range/Units 03:06 Total Bilirubin 0.4 (0.2-1.2) mg/dL Direct Bilirubin 0.2 (0.0-0.5) mg/dL AST 25 (5-34) Units/L ALT 21 (0-55) Units/L Alkaline Phosphatase 58 (38-126) Units/L Albumin 2.2 L (3.5-5.0) g/dL - ABG Interpretation ABG results: PT/INR, D-dimer PT 13.7 Seconds (9.4-12.1) H 01/02/17 07:13 - Impressions Impressions Thoracentesis Ultrasound 01/01/17 09:39 IMPRESSION: Successful ultrasound guided thoracentesis. D/ / 01/01/2017 15:57:00 Syd Stephenson MD / [facility] Interpreting Provider: Syd Stephenson MD Chest X-Ray 01/01/17 13:31 IMPRESSION: 1. Status post left thoracentesis without obvious pneumothorax. 2. Masslike consolidation in the left hemithorax with layering effusion persists. 3. Ground-glass opacities in the right lung, likely represent infection. D/ / 01/01/2017 14:18:37 Annita Johnston MD / [facility] Interpreting Provider: Annita Johnston MD Consult Discharge Plan - Plan Referrals: Dionisio Dominique DO [Primary Care Provider] - <Gus Mazariegos - Last Filed: 01/02/17 18:03> Date of Encounter: 01/02/17 - Assessment and plan (1) Pneumonia Current Visit: Yes Status: Suspected Qualifiers: Pneumonia type: due to other aerobic Gram-negative bacteria Laterality: left Lung location: upper lobe of lung Qualified Code(s): J15.6 - Pneumonia due to other aerobic Gram-negative bacteria (2) SCLC (small cell lung carcinoma) Current Visit: Yes Status: Acute Qualifiers: Laterality: left Qualified Code(s): C34.92 - Malignant neoplasm of unspecified part of left bronchus or lung (3) Tumor lysis syndrome following antineoplastic drug therapy Current Visit: Yes Status: Acute (4) COPD (chronic obstructive pulmonary disease) Current Visit: No Status: Acute Qualifiers: COPD type: COPD with acute lower respiratory infection Qualified Code(s): J44.0 - Chronic obstructive pulmonary disease with acute lower respiratory infection (5) Rheumatoid arthritis Current Visit: No Status: Chronic Qualifiers: Rheumatoid arthritis location: unspecified site Rheumatoid factor presence : unspecified presence Qualified Code(s): M06.9 - Rheumatoid arthritis, unspecified (6) Tobacco abuse Current Visit: No Status: Acute (7) Type 2 diabetes mellitus Current Visit: No Status: Acute Qualifiers: Diabetes mellitus complication status: without complication Diabetes mellitus intermediate manager insulin use: with intermediate manager use Qualified Code(s): E11.9 - Type 2 diabetes mellitus without complications; Z79.4 - termination clerk (current) use of insulin (8) Sepsis Current Visit: Yes Status: Ruled-out Qualifiers: Sepsis type: sepsis due to unspecified organism Qualified Code(s): A41.9 - Sepsis, unspecified organism (9) CHF (congestive heart failure) Current Visit: Yes Status: Chronic Qualifiers: Congestive heart failure type: systolic Congestive heart failure chronicity : chronic Qualified Code(s): I50.22 - Chronic systolic (congestive) heart failure - Constitutional Vitals: Temp Pulse Resp BP Pulse Ox 97.3 F L 105 17 116/63 92 01/02/17 16:23 01/02/17 16:23 01/02/17 16:23 01/02/17 16:23 01/02/17 16:23 Internal Medicine: Result - Labs CBC & Chem 7: 01/02/17 03:06 01/02/17 03:06 Labs: Short CBC 01/02/17 Range/Units 03:06 WBC 3.8 L (4.3-11.1) K/mcL Hgb 10.9 L (12.9-16.9) g/dL Hct 34.8 L (37.5-50.1) % Plt Count 125 L (140-400) K/mcL Neutrophils # 3.3 (1.6-8.9) K/mcL BMP 01/02/17 03:06 Sodium 134 L Potassium 5.0 H Chloride 101 Carbon Dioxide 28 BUN 36 H D Creatinine 1.58 H Glucose 130 H Calcium 7.9 L Liver Function 01/02/17 Range/Units 03:06 Total Bilirubin 0.4 (0.2-1.2) mg/dL Direct Bilirubin 0.2 (0.0-0.5) mg/dL AST 25 (5-34) Units/L ALT 21 (0-55) Units/L Alkaline Phosphatase 58 (38-126) Units/L Albumin 2.2 L (3.5-5.0) g/dL - ABG Interpretation ABG results: PT/INR, D-dimer PT 13.7 Seconds (9.4-12.1) H 01/02/17 07:13 - Impressions Impressions Thoracentesis Ultrasound 01/01/17 09:39 IMPRESSION: Successful ultrasound guided thoracentesis. D/ / 01/01/2017 15:57:00 Syd Stephenson MD / [facility] Interpreting Provider: Syd Stephenson MD Retroperitoneum Ultrasound 01/02/17 16:30 IMPRESSION: Mildly increased renal echogenicity bilaterally which can be seen with medical renal disease. Left renal cyst. D/ / Geo Castillo MD / Geo Castillo MD Interpreting Provider: Geo Castillo MD - Attending Attestation I examined this patient and my medical decision-making was reviewed with the Resident Physician on 01/02/17. I agree with the documented findings, disposition and treatment plan as described except to the extent set forth below. Mr. Miller is currently admitted for acute postobstructive pneumonia and small cell lung cancer. He remains moderate to high risk due to potential for worsening respiratory issues. Mr Miller feels OK at this time. He is awaiting bronchoscopy. He had a fever last evening. No GI issues. Breathing about the same today. Exam Alert. Comfortable Mucus membranes moist Heart reg Diffuse end exp wheeze noted Abd soft I/P 1 Hypoxia 2. Pneumonia 3. Lung cancer Further diagnoses and plan as above.
[2017-01-02] MEDS ORDERED: Albuterol 2.5 MG/3 ML NEBULIZER ONE (11:31)
--- NOTE | 2017-01-02 11:31 | Nephrology Consult Note ---
Date of Encounter: 01/02/17 Time of Encounter: 11:28 Assessment and Plan (1) Acute kidney injury Current Visit: Yes Status: Acute Kidney function returning toward normal with Scr at 1.58 and GFR 55, previous Scr as high as 2.30 and GFR at 30. Will proceed with the MICHELLE workup--some labs already completed Urine creatinine 56 Urine microalbumin 54 Microalb/creat ratio 96 UA shows 30 protein Agree with holding Vanco Avoid nephrotoxins if possible (2) SCLC (small cell lung carcinoma) Current Visit: Yes Status: Acute per oncology team Qualifiers: Laterality: left Qualified Code(s): C34.92 - Malignant neoplasm of unspecified part of left bronchus or lung (3) Type 2 diabetes mellitus Current Visit: No Status: Acute per primary team Qualifiers: Diabetes mellitus complication status: without complication Diabetes mellitus skilled nursing insulin use: with ferry terminal agent use Qualified Code(s): E11.9 - Type 2 diabetes mellitus without complications; Z79.4 - terminal gauger (current) use of insulin History of Present Illness - Reason for Consult Consult date: 01/02/17 - Chief Complaint SCLC, MICHELLE - History of Present Illness Mr. Miller is a 56 year old male with past medical history of diabetes, coronary artery disease, hypertension, congestive heart failure, and squamous cell carcinoma the lung recently diagnosed. Patient was admitted for shortness of breath; he recently completed his first course of chemotherapy. Patient has developed MICHELLE and nephrology has been consulted. Denies any history of kidney disease, no family history of kidney disease, does not use NSAIDs after having protein in urine several year ago for which he seen Dr William in October of 2014. Kidney function is already improving at this time. Past Med Surg Social Fam HX - Past Medical History Medical history: arthritis, CHF, COPD, diabetes, hypertension, TIA Psychiatric history: no psych history - Past Surgical History Surgical History: appendectomy - Social History Smoking Status: Former smoker Smokeless Tobacco Status: No Alcohol use: none Drug use: none - Family History Father Living Status: Hx Family Respiratory Disorders: Yes (Emphysema) Hx Family Neurologic Disorders: Yes (Stroke) Medications and Allergies Albuterol Sulfate [Albuterol Inhaler] 2 puff IH Q4H PRN 11/28/16 [History] Aspirin 325 mg PO DAILY 11/28/16 [History] Carvedilol [Coreg] 6.25 mg PO BIDWM 11/28/16 [History] Finasteride [Proscar] 5 mg PO DAILY 11/28/16 [History] Fluticasone Propionate Nasal [Flonase] 1 spray NS BID 11/28/16 [History] Hydroxychloroquine [Plaquenuil] 400 mg PO DAILY 11/28/16 [History] Insulin Glargine,Hum.rec.anlog [Toujeo Solostar] 50 units SQ QPM 11/28/16 [ History] Ipratropium/Albuterol Neb [Duoneb] 3 ml IH Q6HR 11/28/16 [History] Leflunomide [Arava] 20 mg PO DAILY 11/28/16 [History] Lisinopril [Zestril] 20 mg PO BID 11/28/16 [History] Metformin HCl [Glucophage] 1,000 mg PO BID 11/28/16 [History] Simvastatin [Zocor] 20 mg PO HS 11/28/16 [History] Acetaminophen [Tylenol] 1,000 mg PO Q6HR PRN 12/14/16 [History] Fluticasone/Vilanterol [Breo Ellipta 100-25 Mcg INH] 1 puff IH DAILY 12/14/16 [ History] diazePAM [Valium] 10 mg PO BID PRN #5 tablet 12/14/16 [Rx] Allopurinol [Zyloprim 300 MG] 300 mg PO HS #30 tablet 12/20/16 [Rx] Mag Hydrox/Al Hydrox/Simeth [Maalox] 15 ml PO Q6HR PRN 12/25/16 [History] Magic Mouthwash [Magic Mouthwash BLM] 10 ml PO QID PRN #240 ml 12/25/16 [Rx] Ondansetron HCl [Zofran] 4 mg PO Q4H PRN #30 tablet 12/25/16 [Rx] Pantoprazole Sodium [Protonix] 40 mg PO DAILY 12/25/16 [History] Prochlorperazine Maleate [Compazine] 10 mg PO Q6H PRN #30 tablet 12/25/16 [Rx] Psyllium Husk (with Sugar) [Konsyl Psyllium Fiber Packet] 3.4 gm PO BID [History] Ranitidine HCl [Zantac] 150 mg PO BID #60 tablet 12/25/16 [Rx] Whey Protein Concen/Amino Acid [Whey Protein Concentrate Powd] 17 gm PO BID 06/12 [History] metroNIDAZOLE [Flagyl] 500 mg PO TID #15 tablet 12/25/16 [Rx] Furosemide [Lasix] 40 mg PO DAILY PRN #10 tablet 12/27/16 [Rx] Potassium Chloride [K-Tab ER] 20 meq PO DAILY PRN #10 tablet.er 12/27/16 [Rx] Allergies Penicillins Allergy (Verified 12/25/16 10:04) Difficulty Swallowing Review of Systems All Systems: reviewed and no additional remarkable complaints except as stated Constitutional: lethargy, no fatigue, no fever(s) Nose, mouth and throat: no dizziness Cardiovascular: dyspnea, no chest pain, no leg edema Respiratory: dyspnea on exertion, no cough Gastrointestinal: no constipation, no nausea Neurological: no confusion Psychiatric: no behavioral changes Exam - Vital Signs Vital signs: Initial Vital Signs Temp Pulse Resp BP Pulse Ox 100.7 F H 118 24 139/76 91 12/31/16 06:43 12/31/16 06:43 12/31/16 06:43 12/31/16 06:43 12/31/16 06:43 Vital Signs - Last 8 Hours Temp Pulse Resp BP Pulse Ox 01/02/17 06:44 100.7 F H 108 17 142/78 93 01/02/17 04:35 18 93 Intake and Output 01/01/17 01/02/17 01/02/17 23:59 07:59 15:59 Intake Total 50 / 50 Output Total 150 / 150 Balance -100 / -100 Intake: IV Fluids 50 / 50 Elitek 10 MG In 0.9 % 50 / 50 Sodium Chloride 50 ML @ 100 mls/hr IVPB ONCE ONE Rx#:[id number] Output: Urine 150 / 150 Other: Blood Glucose* 107 110 - General Appearance General appearance: well-developed, well-nourished EENT: ATNC, mucous membranes moist, hearing intact, vision intact Neck: supple Respiratory: clear Cardiology: no edema, normal S1, normal S2 Gastrointestinal: no tenderness, no guarding Integumentary: warm and dry Neurologic: alert and oriented x3 Psychiatric: mood/affect appropriate, cooperative Results - Lab Results 01/02/17 03:06 01/02/17 03:06 Most recent lab results Calcium 7.9 mg/dL (8.6-10.8) L 01/02/17 03:06 Phosphorus 2.5 mg/dL (2.3-4.7) 12/31/16 07:36 Magnesium 1.2 mg/dL (1.6-2.6) L 01/02/17 03:06 Urine Creatinine 56 mg/dL 01/01/17 17:12 Consult Discharge Plan - Plan Referrals: Dionisio Dominique DO [Primary Care Provider] -
[2017-01-02] MEDS: Levofloxacin 750 MG/150 ML 750 MG/150 ML BAG IVPB SCH (14:09)
[2017-01-02] MEDS: Ondansetron 4 MG/2 ML VIAL IVP PRN (15:27)
[2017-01-02 15:55] LABS: Creatine Kinase 49 Units/L (30-200)
[2017-01-02 15:57] LABS: Uric Acid < 1.0 mg/dL (3.5-7.2)
[2017-01-03 03:33] LABS: Red Cell Distribution Width 13.8 % (11.5-14.5)
[2017-01-03 03:34] LABS: Eosinophils # 0.1 K/mcL (0.0-0.6); Eosinophils % 1.6 %; Hematocrit 33.4 % (37.5-50.1); Hemoglobin 10.2 g/dL (12.9-16.9); Immature Platelets 3.1 % (1.1-6.1); Lymphocytes # 0.6 K/mcL (0.6-4.6); Lymphocytes % 18.3 %; Mean Corpuscular HGB Conc 30.5 g/dL (31.6-35.5); Mean Corpuscular Volume 88.4 fL (83.0-100.0); Mean Platelet Volume 9.9 fL (9.4-12.4); Monocytes # 0.1 K/mcL (0.0-1.3); Monocytes % 3.9 %; Neutrophils # 2.3 K/mcL (1.6-8.9); Platelet Count 100 K/mcL (140-400); Red Blood Count 3.78 M/mcL (4.19-5.50); Segmented Neutrophils % 74.2 %
[2017-01-03 03:50] LABS: Alanine Aminotransferase 20 Units/L (0-55); Albumin/Globulin Ratio 0.6 (1.1-2.2); Alkaline Phosphatase 54 Units/L (38-126); Aspartate Amino Transferase 26 Units/L (5-34); BUN/Creatinine Ratio 18 (6-26); Bilirubin,Direct 0.2 mg/dL (0.0-0.5); Bilirubin,Indirect 0.2 mg/dL (0.0-1.2); Bilirubin,Total 0.4 mg/dL (0.2-1.2); Calcium 7.6 mg/dL (8.6-10.8); Carbon Dioxide 29 mEq/L (19-29); Chloride 97 mEq/L (98-109); Globulin 3.6 g/dL (2.4-3.5); Glucose 115 mg/dL (70-99); Magnesium 0.9 mg/dL (1.6-2.6); Osmolality,Calculated 281 (280-300); Potassium 4.6 mEq/L (3.5-4.5); Sodium 133 mEq/L (136-145); Total Protein 5.6 g/dL (6.0-8.3); eGFR For African Americans > 60 (> 60); eGFR For Non-African Americans 52 (> 60)
[2017-01-03 03:51] LABS: Blood Urea Nitrogen 25 mg/dL (8-26)
[2017-01-03 04:14] LABS: Platelet Estimate Decreased (Normal)
[2017-01-03] MEDS: Albuterol 2.5 MG/3 ML NEBULIZER IH SCH ×4 (05:14→21:55)
[2017-01-03] MEDS: *HR* OxyCODONE/APAP 5/325 TABLET PO SCH ×5 (06:27→20:39)
[2017-01-03] MEDS: *HR* Enoxaparin 40 MG/0.4 ML SYRINGE SQ SCH (06:37)
[2017-01-03] MEDS: Ondansetron 4 MG/2 ML VIAL IVP PRN (06:51)
[2017-01-03] MEDS: Insulin LISPRO 300 UNITS/3 ML VIAL SQ SCH ×4 (07:15→20:41)
[2017-01-03] MEDS: Ertapenem 1,000 MG in 0.9 % Sodium Chloride Mini Bag 100 ML IVPB SCH (07:32)
[2017-01-03] MEDS: Lisinopril 20 MG TABLET PO SCH (07:35)
[2017-01-03] MEDS: Nicotine 21 MG PATCH.TD24 TD SCH (07:36)
--- NOTE | 2017-01-03 08:54 | Anesthesia Evaluation PreOp ---
Date of Encounter: 01/03/17 Time of Encounter: 08:52 - Past History Planned Operation: Bronch and debridement Cardiac History: CHF (hospitalized 2007 post-TIA maintained on Lasix), HTN ( maintained on Carvedilol, Lisinopril), Hyperlipidemia (maintained on Zocor), Other (ECHO 11/29/2016 - LVEF 40-45%. Global LV hypokinesis. NO significant valvular dysfx) Pulmonary History: Former smoker (Quit 12/25/2016), Smoker (2ppd x 40yrs), COPD ( maintained on Albuterol, DuoNebs, Breo Ellipta), Other (Lung CA/Recent SCLC dx , S/p 1 cycle of Chemo 11/2016. 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 GFR = 52), Diabetes Type II ( maintained on Toujeo, Metformin,), GERD (maintained on Zantac, Protonix), Other (BPH maintained on Finasteride) Anesthesia History: No Prior Anesthetic Complications, Past Anesthesia (Bronch/ Drainage of Pleural effusion/removal mucus plug 11/2016, Hernia Repair, CTR, shoulder RCR) Alcohol Use: none Drug use: none Medications and Allergies Albuterol Sulfate [Albuterol Inhaler] 2 puff IH Q4H PRN 11/28/16 [History] Aspirin 325 mg PO DAILY 11/28/16 [History] Carvedilol [Coreg] 6.25 mg PO BIDWM 11/28/16 [History] Finasteride [Proscar] 5 mg PO DAILY 11/28/16 [History] Fluticasone Propionate Nasal [Flonase] 1 spray NS BID 11/28/16 [History] Hydroxychloroquine [Plaquenuil] 400 mg PO DAILY 11/28/16 [History] Insulin Glargine,Hum.rec.anlog [Touata Solostar] 50 units SQ QPM 11/28/16 [ History] Ipratropium/Albuterol Neb [Duoneb] 3 ml IH Q6HR 11/28/16 [History] Leflunomide [Arava] 20 mg PO DAILY 11/28/16 [History] Lisinopril [Zestril] 20 mg PO BID 11/28/16 [History] Metformin HCl [Glucophage] 1,000 mg PO BID 11/28/16 [History] Simvastatin [Zocor] 20 mg PO HS 11/28/16 [History] Acetaminophen [Tylenol] 1,000 mg PO Q6HR PRN 12/14/16 [History] Fluticasone/Vilanterol [Breo Ellipta 100-25 Mcg INH] 1 puff IH DAILY 12/14/16 [ History] diazePAM [Valium] 10 mg PO BID PRN #5 tablet 12/14/16 [Rx] Allopurinol [Zyloprim 300 MG] 300 mg PO HS #30 tablet 12/20/16 [Rx] Mag Hydrox/Al Hydrox/Simeth [Maalox] 15 ml PO Q6HR PRN 12/25/16 [History] Magic Mouthwash [Magic Mouthwash BLM] 10 ml PO QID PRN #240 ml 12/25/16 [Rx] Ondansetron HCl [Zofran] 4 mg PO Q4H PRN #30 tablet 12/25/16 [Rx] Pantoprazole Sodium [Protonix] 40 mg PO DAILY 12/25/16 [History] Prochlorperazine Maleate [Compazine] 10 mg PO Q6H PRN #30 tablet 12/25/16 [Rx] Psyllium Husk (with Sugar) [Konsyl Psyllium Fiber Packet] 3.4 gm PO BID [History] Ranitidine HCl [Zantac] 150 mg PO BID #60 tablet 12/25/16 [Rx] Whey Protein Concen/Amino Acid [Whey Protein Concentrate Powd] 17 gm PO BID 06/12 [History] metroNIDAZOLE [Flagyl] 500 mg PO TID #15 tablet 12/25/16 [Rx] Furosemide [Lasix] 40 mg PO DAILY PRN #10 tablet 12/27/16 [Rx] Potassium Chloride [K-Tab ER] 20 meq PO DAILY PRN #10 tablet.er 12/27/16 [Rx] Allergies Penicillins Allergy (Verified 12/25/16 10:04) Difficulty Swallowing - Meds/Allergy Pre-op Review Medications Reviewed: Yes Allergies Reviewed: Yes Beta Blockers on Current Med List: Yes (Coreg) If Beta Blockers taken, Date/Time (Last Dose taken): 01/03/2017 @ 0735 Anesthesia Results - Labs 01/03/17 03:21 01/03/17 03:21 Laboratory Results Laboratory Tests 12/31/16 01/02/17 01/03/17 07:36 07:13 03:21 PT 13.7 H INR 1.3 APTT 24.2 L Est GFR (Non-Af Amer) 52 L Calcium 7.6 L Magnesium 0.9 L B-Natriuretic Peptide [address] 12/31/16 10:26 IMPRESSION: 1. Progressive metastatic lymphadenopathy with the infiltrative left hilar mass resulting in left upper lobe bronchial obstruction and now complete left upper lobe atelectasis. Progressive malignant moderate-large left pleural effusion. 2. There is new mild patchy central right upper lobe and essentially stable extensive left lower lobe consolidative changes. Superimposed infectious process cannot be excluded versus possible metastatic disease. 3. Questionable vague 1.4 cm left hepatic lobe hypodense lesion which could represent vascular channels versus possible metastatic lesion. This could be further evaluated with CT abdomen with contrast. 4. Stable nondisplaced, incompletely healed, left lateral 8th rib fracture. There is no evidence of osseous metastatic disease. D/ / 12/31/2016 12:06:51 Hilario Rinaldi MD / [facility] Interpreting Provider: Hilario Rinaldi MD Thoracentesis Ultrasound 01/01/17 09:39 IMPRESSION: Successful ultrasound guided thoracentesis. D/ / 01/01/2017 15:57:00 Syd Stephenson MD / [facility] Interpreting Provider: Syd Stephenson MD Chest X-Ray 01/01/17 13:31 IMPRESSION: 1. Status post left thoracentesis without obvious pneumothorax. 2. Masslike consolidation in the left hemithorax with layering effusion persists. 3. Ground-glass opacities in the right lung, likely represent infection. D/ / 01/01/2017 14:18:37 Annita Johnston MD / [facility] Interpreting Provider: Annita Johnston MD Retroperitoneum Ultrasound 01/02/17 16:30 IMPRESSION: Mildly increased renal echogenicity bilaterally which can be seen with medical renal disease. Left renal cyst. D/ / Geo Castillo MD / Geo Castillo MD Interpreting Provider: Geo Castillo MD - Imaging EKG: image reviewed (113 STach, possible anterolateral SC of indeterminate age) Chest x-ray: report reviewed Anesthesia Exam Vital Signs Temp Pulse Resp BP Pulse Ox 01/03/17 06:51 98.4 F 100 17 153/84 93 01/03/17 04:55 99.4 F 105 16 150/80 92 01/02/17 23:41 98.4 F 100 16 123/69 92 01/02/17 21:42 91 01/02/17 21:40 18 91 01/02/17 19:12 99.5 F 106 16 125/67 92 01/02/17 16:23 97.3 F L 105 17 116/63 92 01/02/17 15:38 16 90 01/02/17 12:16 98.9 F 102 17 155/80 93 01/02/17 11:33 20 92 Intake and Output 01/02/17 01/03/17 01/03/17 23:59 07:59 15:59 Intake Total 0 / 0 525 / 525 Output Total 300 / 300 Balance 0 / 0 525 / 525 -300 / -300 Intake: Oral 0 / 0 525 / 525 Output: Urine 300 / 300 Other: Meal Dinner Percent of Meal Consumed 0% Weight 109 kg Blood Glucose* 137 108 Patient Weight 01/03/17 23:59 Weight 109 kg - HEENT Pupil (Motor): Pupils equal, EOMI Mallampati: II Teeth: Poor dentition Oral Opening: Greater than 3 - BICYCLE TECHNICIAN LOC: Oriented, Confused BICYCLE TECHNICIAN Motor: Normal RUE, Normal LUE, Normal RLE, Normal LLE, Normal Face BICYCLE TECHNICIAN Sensory: Normal: RUE, LUE, RLE, LLE, Face - Cardiac Rhythm: Regular Murmur: None - Pulmonary Breath Sounds: right Rales (squeaks & rhonchi AYAD transmitted throughout), bilateral Rhonchi (Dimninshed breath sounds/air mvmt Bilat bases) Respiratory Effort: Symmetrical Anesthesia Assess/Plan ASA Score: 4 (Lung Ca/SCLC, Obesity, HTN, Chol, CHF, DM, Smoker/COPD, MICHELLE, Anxiety/Depression) Modified Enmanuel Scale for Level of Consciousness: Cooperative, oriented, and tranquil Anesthetic Plan: General Monitoring Plan: Standard Monitors Recovery Plan: PACU Anes Supervising Prov Stmt: PT seen/evaluated, R&B discussed questions answered and consent obtained. Wellington Galo MD
[2017-01-03] MEDS ORDERED: *HR* FentaNYL (PF) 100 MCG/2 ML VIAL ONE (09:24)
[2017-01-03] MEDS ORDERED: *HR* Midazolam HCl 2 MG/2 ML VIAL ONE (09:25)
[2017-01-03] MEDS ORDERED: Ipratropium/Albuterol Neb 3 ML ONE (09:26)
--- NOTE | 2017-01-03 09:59 | Anesthesia Evaluation PreOp ---
Date of Encounter: 01/03/17 - Past History Alcohol Use: none Drug use: none Medications and Allergies Albuterol Sulfate [Albuterol Inhaler] 2 puff IH Q4H PRN 11/28/16 [History] Aspirin 325 mg PO DAILY 11/28/16 [History] Carvedilol [Coreg] 6.25 mg PO BIDWM 11/28/16 [History] Finasteride [Proscar] 5 mg PO DAILY 11/28/16 [History] Fluticasone Propionate Nasal [Flonase] 1 spray NS BID 11/28/16 [History] Hydroxychloroquine [Plaquenuil] 400 mg PO DAILY 11/28/16 [History] Insulin Glargine,Hum.rec.anlog [Toujeo Solostar] 50 units SQ QPM 11/28/16 [ History] Ipratropium/Albuterol Neb [Duoneb] 3 ml IH Q6HR 11/28/16 [History] Leflunomide [Arava] 20 mg PO DAILY 11/28/16 [History] Lisinopril [Zestril] 20 mg PO BID 11/28/16 [History] Metformin HCl [Glucophage] 1,000 mg PO BID 11/28/16 [History] Simvastatin [Zocor] 20 mg PO HS 11/28/16 [History] Acetaminophen [Tylenol] 1,000 mg PO Q6HR PRN 12/14/16 [History] Fluticasone/Vilanterol [Breo Ellipta 100-25 Mcg INH] 1 puff IH DAILY 12/14/16 [ History] diazePAM [Valium] 10 mg PO BID PRN #5 tablet 12/14/16 [Rx] Allopurinol [Zyloprim 300 MG] 300 mg PO HS #30 tablet 12/20/16 [Rx] Mag Hydrox/Al Hydrox/Simeth [Maalox] 15 ml PO Q6HR PRN 12/25/16 [History] Magic Mouthwash [Magic Mouthwash BLM] 10 ml PO QID PRN #240 ml 12/25/16 [Rx] Ondansetron HCl [Zofran] 4 mg PO Q4H PRN #30 tablet 12/25/16 [Rx] Pantoprazole Sodium [Protonix] 40 mg PO DAILY 12/25/16 [History] Prochlorperazine Maleate [Compazine] 10 mg PO Q6H PRN #30 tablet 12/25/16 [Rx] Psyllium Husk (with Sugar) [Konsyl Psyllium Fiber Packet] 3.4 gm PO BID [History] Ranitidine HCl [Zantac] 150 mg PO BID #60 tablet 12/25/16 [Rx] Whey Protein Concen/Amino Acid [Whey Protein Concentrate Powd] 17 gm PO BID 06/12 [History] metroNIDAZOLE [Flagyl] 500 mg PO TID #15 tablet 12/25/16 [Rx] Furosemide [Lasix] 40 mg PO DAILY PRN #10 tablet 12/27/16 [Rx] Potassium Chloride [K-Tab ER] 20 meq PO DAILY PRN #10 tablet.er 12/27/16 [Rx] Allergies Penicillins Allergy (Verified 12/25/16 10:04) Difficulty Swallowing Anesthesia Results - Labs 01/03/17 03:21 01/03/17 03:21
--- NOTE | 2017-01-03 10:39 | Event Note ---
Date of Encounter: 01/03/17 Time of Encounter: 10:38 Attempted to see patient several times but currently having bronchoscopy done. Kidney function continues to improve. Will monitor closely
--- NOTE | 2017-01-03 10:49 | Anesthesia Evaluation Post Op ---
Date of Encounter: 01/03/17 Time of Encounter: 10:48 - Vital Signs Vital Signs: Vital Signs/O2 Sat, Most Current Temp Pulse Resp BP Pulse Ox 98.5 F 105 18 98/62 98 01/03/17 10:28 01/03/17 10:38 01/03/17 10:38 01/03/17 10:38 01/03/17 10:38 - Lungs Lungs: Rales, Rhonchi (same as pre op) - Airway Airway: Non-obstructed - Cardiovascular Regular Rate - Mental Status Mental Status: Alert & Oriented, Answers Appropriately - Pain Pain Scale: 0 Pain Scale used: Numeric (1 - 10) - Nausea Vomiting Nausea Vomiting: Not Present - Hydration Hydration: Ice chips, Has not voided - Discharge PostOp Status: Transfer Patient to floor
[2017-01-03] MEDS ORDERED: *HR* LORazepam 2 MG/ML VIAL IVP ONE (11:23)
[2017-01-03] MEDS ORDERED: *HR* EPINEPHrine 1 MG/10 ML SYRINGE ONE (11:53)
[2017-01-03] MEDS ORDERED: Lidocaine -MPF 2% 5 ML VIAL INFILT ONE (12:01)
[2017-01-03] MEDS ORDERED: Ondansetron 4 MG/2 ML VIAL IVP ONE (12:01)
[2017-01-03] MEDS ORDERED: *HR* Propofol 500 MG/50 ML BOTTLE IVC ONE (12:01)
[2017-01-03] MEDS ORDERED: *HR* Propofol 200 MG/20 ML VIAL IVP ONE (12:01)
[2017-01-03] MEDS ORDERED: Esmolol 100 MG/10 ML VIAL IVP ONE (12:01)
--- NOTE | 2017-01-03 12:43 | Nephrology Progress Note ---
Date of Encounter: 01/03/17 Time of Encounter: 12:41 - Assessment and Plan (1) Acute kidney injury Current Visit: Yes Status: Acute Kidney function continues to improve Will continue to monitor closely Avoid nephrotoxins if possible (2) SCLC (small cell lung carcinoma) Current Visit: Yes Status: Acute per oncology team Qualifiers: Laterality: left Qualified Code(s): C34.92 - Malignant neoplasm of unspecified part of left bronchus or lung (3) Type 2 diabetes mellitus Current Visit: No Status: Acute per primary team Qualifiers: Diabetes mellitus complication status: without complication Diabetes mellitus care home insulin use: with care home use Qualified Code(s): E11.9 - Type 2 diabetes mellitus without complications; Z79.4 - terminal carman (current) use of insulin Subjective Principal diagnosis: Pneumonia Interval history: Patient seen and examined as he is returning from bronchoscopy. Objective - Vital Signs Vital signs: Vital Signs Temp Pulse Resp BP Pulse Ox 01/03/17 11:53 97.4 F L 99 16 108/68 90 01/03/17 10:58 98.7 F 103 22 105/65 93 01/03/17 10:48 106 24 101/61 93 01/03/17 10:38 105 18 98/62 98 01/03/17 10:28 98.5 F 108 16 98/59 98 01/03/17 09:13 98.4 F 94 18 123/70 93 01/03/17 09:00 93 01/03/17 06:51 98.4 F 100 17 153/84 93 01/03/17 04:55 99.4 F 105 16 150/80 92 01/02/17 23:41 98.4 F 100 16 123/69 92 01/02/17 21:42 91 01/02/17 21:40 18 91 01/02/17 19:12 99.5 F 106 16 125/67 92 01/02/17 16:23 97.3 F L 105 17 116/63 92 01/02/17 15:38 16 90 Intake and Output 01/02/17 01/03/17 01/03/17 23:59 07:59 15:59 Intake Total 0 / 0 525 / 525 0 / 0 Output Total 300 / 300 Balance 0 / 0 525 / 525 -300 / -300 Intake: Oral 0 / 0 525 / 525 0 / 0 Output: Urine 300 / 300 Other: Meal Dinner NPO Percent of Meal Consumed 0% 0% Weight 109 kg Blood Glucose* 137 117 Patient Weight 01/03/17 23:59 Weight 109 kg - General Appearance General appearance: Present: well-developed, well-nourished EENT: Present: ATNC, hearing intact, vision intact Neck: Present: supple Cardiology: Present: regular rate, regular rhythm Gastrointestinal: Present: no guarding Integumentary: Present: warm and dry Neurologic: Present: alert and oriented x3 Psychiatric: Present: mood/affect appropriate, cooperative - Lab 01/03/17 03:21 01/03/17 03:21 Most recent lab results Calcium 7.6 mg/dL (8.6-10.8) L 01/03/17 03:21 Phosphorus 2.5 mg/dL (2.3-4.7) 12/31/16 07:36 Magnesium 0.9 mg/dL (1.6-2.6) L 01/03/17 03:21 Urine Creatinine 56 mg/dL 01/01/17 17:12 Urine Sodium 36.0 mEq/L 01/02/17 15:53 Consult Discharge Plan - Plan Referrals: Dionisio Dominique DO [Primary Care Provider] - 01/10/17 10:20 am
--- NOTE | 2017-01-03 13:56 | Internal Med Progress Note ---
<NakiaMinh duenas - Last Filed: 01/03/17 13:53> Date of Encounter: 01/03/17 Time of Encounter: 13:53 - Assessment and plan (1) SCLC (small cell lung carcinoma) Current Visit: Yes Status: Acute Assessment and plan: Recently diagnosed, completed [address] performed at this admission appears to show worsening of disease. Status post bronchoscopy performed today with extraction of mucous plugging. Patient symptomatically is much improved. Likely discharge tomorrow to continue cancer treatments as an outpatient. Qualifiers: Laterality: left Qualified Code(s): C34.92 - Malignant neoplasm of unspecified part of left bronchus or lung (2) Postobstructive pneumonia Current Visit: No Status: Acute Assessment and plan: In the setting of small cell lung cancer as discussed above. Status post bronchoscopy as above. Blood, sputum, pleural fluid cultures are negative to date. Continue IV antibiotics at this time, transition to by mouth antibiotics tomorrow in anticipation of discharge for a total of 10 days of treatment. (3) Tumor lysis syndrome following antineoplastic drug therapy Current Visit: Yes Status: Acute Assessment and plan: In the setting of small cell lung cancer status post treatment. Patient was on allopurinol previously, received 1 dose of rasburicase yesterday. Renal function, potassium improving. (4) Acute kidney injury Current Visit: Yes Status: Acute Assessment and plan: Creatinine 2.3 on presentation, down to 1.40 today, patient appears to have normal renal function at baseline. Patient is still having good urine output. Likely related to tumor lysis syndrome as discussed above. Potassium is improved today. Nephrology following. (5) Type 2 diabetes mellitus Current Visit: No Status: Acute Assessment and plan: Blood sugar under good control, continue sliding scale Qualifiers: Diabetes mellitus complication status: without complication Diabetes mellitus detention insulin use: with detention use Qualified Code(s): E11.9 - Type 2 diabetes mellitus without complications; Z79.4 - FDC (current) use of insulin - Subjective Interval history: Patient seen and examined at bedside. Patient states that he feels much better today. His breathing is significantly improved after his bronchoscopy today. He reports mild irritation of his throat and an occasional cough but these are improving. Denies hemoptysis, fever, chills, chest pain, abdominal pain, nausea , vomiting. - Constitutional Vitals: Temp Pulse Resp BP Pulse Ox 97.4 F L 99 16 108/68 90 01/03/17 11:53 01/03/17 11:53 01/03/17 11:53 01/03/17 11:53 01/03/17 11:53 General appearance: Present: A&O X 3, no acute distress, answers questions appropriately - Respiratory Respiratory exam: Present: decreased breath sounds. Absent: rales, rhonchi, wheezes - Cardiovascular Cardiovascular exam: Present: RRR. Absent: gallop, rubs, systolic murmur - GI/Abdominal GI/Abdominal exam: Present: normal bowel sounds, soft. Absent: distended, tenderness - Extremities Exam Extremities exam: Present: warm. Absent: pedal edema, tenderness - Neurological Exam Neurological exam: Present: alert, CN II-XII intact, oriented X3, no focal deficits Internal Medicine: Result - Labs CBC & Chem 7: 01/03/17 03:21 01/03/17 03:21 Labs: Short CBC 01/03/17 Range/Units 03:21 WBC 3.1 L (4.3-11.1) K/mcL Hgb 10.2 L (12.9-16.9) g/dL Hct 33.4 L (37.5-50.1) % Plt Count 100 L (140-400) K/mcL Neutrophils # 2.3 (1.6-8.9) K/mcL BMP 01/03/17 03:21 Sodium 133 L Potassium 4.6 H Chloride 97 L Carbon Dioxide 29 BUN 25 D Creatinine 1.40 H Glucose 115 H Calcium 7.6 L Liver Function 01/03/17 Range/Units 03:21 Total Bilirubin 0.4 (0.2-1.2) mg/dL Direct Bilirubin 0.2 (0.0-0.5) mg/dL AST 26 (5-34) Units/L ALT 20 (0-55) Units/L Alkaline Phosphatase 54 (38-126) Units/L Albumin 2.0 L (3.5-5.0) g/dL - ABG Interpretation ABG results: PT/INR, D-dimer PT 13.7 Seconds (9.4-12.1) H 01/02/17 07:13 - Impressions Impressions Retroperitoneum Ultrasound 01/02/17 16:30 IMPRESSION: Mildly increased renal echogenicity bilaterally which can be seen with medical renal disease. Left renal cyst. D/ / Geo Castillo MD / Geo Castillo MD Interpreting Provider: Geo Castillo MD Consult Discharge Plan - Plan Referrals: Dionisio Dominique, [Primary Care Provider] - 01/10/17 10:20 am <Gus Mazariegos - Last Filed: 01/03/17 19:01> Date of Encounter: 01/03/17 - Assessment and plan (1) Acute on chronic respiratory failure with hypoxemia Current Visit: Yes Status: Acute (2) Pneumonia Current Visit: Yes Status: Suspected Qualifiers: Pneumonia type: due to other aerobic Gram-negative bacteria Laterality: left Lung location: upper lobe of lung Qualified Code(s): J15.6 - Pneumonia due to other aerobic Gram-negative bacteria (3) SCLC (small cell lung carcinoma) Current Visit: Yes Status: Acute Qualifiers: Laterality: left Qualified Code(s): C34.92 - Malignant neoplasm of unspecified part of left bronchus or lung (4) Tumor lysis syndrome following antineoplastic drug therapy Current Visit: Yes Status: Acute (5) COPD (chronic obstructive pulmonary disease) Current Visit: No Status: Acute Qualifiers: COPD type: COPD with acute lower respiratory infection Qualified Code(s): J44.0 - Chronic obstructive pulmonary disease with acute lower respiratory infection (6) Rheumatoid arthritis Current Visit: No Status: Chronic Qualifiers: Rheumatoid arthritis location: unspecified site Rheumatoid factor presence : unspecified presence Qualified Code(s): M06.9 - Rheumatoid arthritis, unspecified (7) Tobacco abuse Current Visit: No Status: Acute (8) Type 2 diabetes mellitus Current Visit: No Status: Acute Qualifiers: Diabetes mellitus complication status: without complication Diabetes mellitus detention insulin use: with buttermaker use Qualified Code(s): E11.9 - Type 2 diabetes mellitus without complications; Z79.4 - buttermaker (current) use of insulin (9) Sepsis Current Visit: Yes Status: Ruled-out Qualifiers: Sepsis type: sepsis due to unspecified organism Qualified Code(s): A41.9 - Sepsis, unspecified organism (10) CHF (congestive heart failure) Current Visit: Yes Status: Chronic Qualifiers: Congestive heart failure type: systolic Congestive heart failure chronicity : chronic Qualified Code(s): I50.22 - Chronic systolic (congestive) heart failure - Constitutional Vitals: Temp Pulse Resp BP Pulse Ox 98.9 F 88 18 106/88 98 01/03/17 15:16 01/03/17 15:16 01/03/17 16:12 01/03/17 15:16 01/03/17 16:12 Internal Medicine: Result - Labs CBC & Chem 7: 01/03/17 03:21 01/03/17 03:21 Labs: Short CBC 01/03/17 Range/Units 03:21 WBC 3.1 L (4.3-11.1) K/mcL Hgb 10.2 L (12.9-16.9) g/dL Hct 33.4 L (37.5-50.1) % Plt Count 100 L (140-400) K/mcL Neutrophils # 2.3 (1.6-8.9) K/mcL BMP 01/03/17 03:21 Sodium 133 L Potassium 4.6 H Chloride 97 L Carbon Dioxide 29 BUN 25 D Creatinine 1.40 H Glucose 115 H Calcium 7.6 L Liver Function 01/03/17 Range/Units 03:21 Total Bilirubin 0.4 (0.2-1.2) mg/dL Direct Bilirubin 0.2 (0.0-0.5) mg/dL AST 26 (5-34) Units/L ALT 20 (0-55) Units/L Alkaline Phosphatase 54 (38-126) Units/L Albumin 2.0 L (3.5-5.0) g/dL - ABG Interpretation ABG results: PT/INR, D-dimer PT 13.7 Seconds (9.4-12.1) H 01/02/17 07:13 - Attending Attestation I examined this patient and my medical decision-making was reviewed with the Resident Physician on 01/03/17. I agree with the documented findings, disposition and treatment plan as described except to the extent set forth below. Mr. Miller is currently admitted for hypoxia due to pneumonia and lung cancer. He remains moderate to high risk due to potential for worsening respiratory symptoms. Mr. Miller had bronch today and feels better. No fever or chills now. No GI issues. Breathing feels OK now. Less cough. Exam Alert. comfortable Mucus membranes dry Heart reg Less wheeze Abd soft No edema I/P 1. PNA 2. Hypoxia 3. Lung cancer Further diagnoses and plan as above.
[2017-01-04] MEDS: Albuterol 2.5 MG/3 ML NEBULIZER IH SCH ×2 (04:01→10:21)
[2017-01-04 04:30] LABS: Immature Granulocytes % 0.6 % (0-4)
[2017-01-04 04:32] LABS: Hemoglobin 9.7 g/dL (12.9-16.9); Immature Platelets 3.5 % (1.1-6.1); Lymphocytes # 0.6 K/mcL (0.6-4.6); Lymphocytes % 18.2 %; Mean Corpuscular HGB Conc 30.3 g/dL (31.6-35.5); Mean Corpuscular Hemoglobin 26.9 pg (28.0-33.3); Mean Corpuscular Volume 88.6 fL (83.0-100.0); Mean Platelet Volume 10.3 fL (9.4-12.4); Monocytes # 0.1 K/mcL (0.0-1.3); Monocytes % 4.5 %; Neutrophils # 2.4 K/mcL (1.6-8.9); Red Blood Count 3.61 M/mcL (4.19-5.50); Red Cell Distribution Width 13.7 % (11.5-14.5); Segmented Neutrophils % 76.7 %
[2017-01-04 04:41] LABS: Platelet Count 80 K/mcL (140-400)
[2017-01-04 04:54] LABS: Alanine Aminotransferase 22 Units/L (0-55); Albumin/Globulin Ratio 0.5 (1.1-2.2); Alkaline Phosphatase 63 Units/L (38-126); Aspartate Amino Transferase 27 Units/L (5-34); BUN/Creatinine Ratio 18 (6-26); Bilirubin,Direct 0.1 mg/dL (0.0-0.5); Bilirubin,Indirect 0.2 mg/dL (0.0-1.2); Blood Urea Nitrogen 28 mg/dL (8-26); Calcium 7.5 mg/dL (8.6-10.8); Carbon Dioxide 32 mEq/L (19-29); Chloride 98 mEq/L (98-109); Globulin 3.8 g/dL (2.4-3.5); Glucose 269 mg/dL (70-99); Magnesium 1.1 mg/dL (1.6-2.6); Osmolality,Calculated 293 (280-300); Potassium 5.1 mEq/L (3.5-4.5); Sodium 134 mEq/L (136-145); Total Protein 5.6 g/dL (6.0-8.3); eGFR For African Americans 58 (> 60); eGFR For Non-African Americans 48 (> 60)
[2017-01-04 04:57] LABS: Albumin 1.8 g/dL (3.5-5.0); Bilirubin,Total < 0.3 mg/dL (0.2-1.2)
[2017-01-04 05:24] LABS: Platelet Estimate Decreased (Normal)
[2017-01-04] MEDS: *HR* Enoxaparin 40 MG/0.4 ML SYRINGE SQ SCH (05:58)
[2017-01-04] MEDS: *HR* OxyCODONE/APAP 5/325 TABLET PO SCH ×3 (06:05→08:51)
--- NOTE | 2017-01-04 07:24 | Pulmonology Progress Note ---
Date of Encounter: 01/04/17 Time of Encounter: 07:24 Assessment and Plan (1) Acute and chronic respiratory failure with hypoxia Current Visit: Yes Status: Acute Impression: 1. Acute on Chronic Hypoxic Respiratory Failure 2. SCLC Invasive Bronchial Tumor with Post Obstructive PNA 3. Pleural Effusion 4. History of CHF 5. MICHELLE 6. COPD Recs: -Wean Fio2 to keep SaO2 >88. OOBTC, ambulation as safe and with supervision, encourage incentive linda -deescalate ABx to levaquin to complete 7 days based upon clinical course. -Appears malignant f/u Final Cytology- consider PleurX placement as clinically warranted -holding diuresis for MICHELLE -SCr has improved from admission although it has not returned to normal -Cont MDIs and bronchodilators as scheduled. Burst prednisone 40mg x 5 days -Chemical DVT prophylaxis unless contraindication arises Pulmonary Will sign off thank you for the Consult (2) Acute kidney injury Current Visit: Yes Status: Acute (3) SCLC (small cell lung carcinoma) Current Visit: Yes Status: Acute Qualifiers: Laterality: left Qualified Code(s): C34.92 - Malignant neoplasm of unspecified part of left bronchus or lung (4) COPD (chronic obstructive pulmonary disease) Current Visit: No Status: Acute Qualifiers: COPD type: COPD with acute lower respiratory infection Qualified Code(s): J44.0 - Chronic obstructive pulmonary disease with acute lower respiratory infection (5) Mass of left lung Current Visit: No Status: Acute (6) Postobstructive pneumonia Current Visit: No Status: Acute Subjective Principal diagnosis: Pneumonia Interval history: Continues to improve clinically. No untoward effects post bronch which was notable for large left upper lobe mucous plug. APC was performed in the tumor with some albeit modest improvement in aeration to AYAD. Objective PUL Vital signs: Last Vital Signs Temp 97.4 F L 01/04/17 06:34 Pulse 73 01/04/17 06:34 Resp 19 01/04/17 06:34 BP 114/66 01/04/17 06:34 Pulse Ox 94 01/04/17 06:34 General appearance: no acute distress Auscultation: left: diminished breath sounds Cardiovascular: regular rate and rhythm Extremities: edema Results - Laboratory Findings CBC and BMP: 01/04/17 04:10 01/04/17 04:10 PT/INR, D-dimer PT 13.7 Seconds (9.4-12.1) H 01/02/17 07:13 Abnormal lab findings: Abnormal lab results WBC 3.1 K/mcL (4.3-11.1) L 01/04/17 04:10 RBC 3.61 M/mcL (4.19-5.50) L 01/04/17 04:10 Hgb 9.7 g/dL (12.9-16.9) L 01/04/17 04:10 Hct 32.0 % (37.5-50.1) L 01/04/17 04:10 MCH 26.9 pg (28.0-33.3) L 01/04/17 04:10 MCHC 30.3 g/dL (31.6-35.5) L 01/04/17 04:10 Plt Count 80 K/mcL (140-400) L 01/04/17 04:10 Platelet Estimate Decreased (Normal) L 01/04/17 04:10 PT 13.7 Seconds (9.4-12.1) H 01/02/17 07:13 APTT 24.2 Seconds (26.0-36.0) L 01/02/17 07:13 VBG pO2 127 mmHg (25-40) H 12/31/16 09:01 VBG HCO3 27.1 mEq/L (21-27) H 12/31/16 09:01 Sodium 134 mEq/L (136-145) L 01/04/17 04:10 Potassium 5.1 mEq/L (3.5-4.5) H 01/04/17 04:10 Carbon Dioxide 32 mEq/L (19-29) H 01/04/17 04:10 BUN 28 mg/dL (8-26) H 01/04/17 04:10 Creatinine 1.52 mg/dL (0.72-1.25) H 01/04/17 04:10 Est GFR ( Amer) 58 (> 60) L 01/04/17 04:10 Est GFR (Non-Af Amer) 48 (> 60) L 01/04/17 04:10 Glucose 269 mg/dL (70-99) H 01/04/17 04:10 POC Glucose 380 (58-89) H 01/03/17 20:21 Uric Acid < 1.0 mg/dL (3.5-7.2) L D 01/02/17 03:06 Calcium 7.5 mg/dL (8.6-10.8) L 01/04/17 04:10 Magnesium 1.1 mg/dL (1.6-2.6) L 01/04/17 04:10 B-Natriuretic Peptide 104 pg/mL (0-100) H 12/31/16 07:36 Serum Total Protein 5.6 g/dL (6.0-8.3) L 01/04/17 04:10 Albumin 1.8 g/dL (3.5-5.0) L 01/04/17 04:10 Globulin 3.8 g/dL (2.4-3.5) H 01/04/17 04:10 Albumin/Globulin Ratio 0.5 (1.1-2.2) L 01/04/17 04:10 Urine Protein 30 mg/dL (Neg-Trace) H 12/31/16 08:27 Urine Microscopic RBC 3-5 per hpf (0-3) H 12/31/16 08:27 Urine Microscopic WBC 3-5 per hpf (0-3) H 12/31/16 08:27 Microalb/Creat Ratio 96 (0-30) H 01/01/17 17:12 Pleural Appearance Bloody (Clear) A 01/01/17 13:30 Pleural RBC 0.238 M/mcL (0.000-0.002) H 01/01/17 13:30 - Microbiology Findings Microbiology Findings: Microbiology, Last 48 Hours 01/01/17 13:30 Gram Stain - Final Pleural Fluid Body Fluid Culture - Preliminary 01/03/17 Unknown Gram Stain - Final Left Upper Lobe Lung 12/31/16 17:23 Sputum Culture - Final Sputum - Clinical Findings Intake & Output: Intake & Output 01/03/17 01/03/17 01/04/17 15:59 23:59 07:59 Intake Total 0 / 0 0 / 0 Output Total 500 / 500 1150 / 1150 725 / 725 Balance -500 / -500 -1150 / -1150 -725 / -725 Weight 113 kg Consult Discharge Plan - Plan Referrals: Dionisio Dominique DO [Primary Care Provider] - 01/10/17 10:20 am
[2017-01-04] MEDS: Ertapenem 1,000 MG in 0.9 % Sodium Chloride Mini Bag 100 ML IVPB SCH (07:29)
[2017-01-04] MEDS: Nicotine 21 MG PATCH.TD24 TD SCH (07:30)
[2017-01-04] MEDS: Lisinopril 20 MG TABLET PO SCH (07:31)
[2017-01-04] MEDS ORDERED: predniSONE 20 MG TABLET PO SCH (09:15)
--- NOTE | 2017-01-04 09:20 | Discharge Summary ---
<Minh Rivera - Last Filed: 01/04/17 09:31> Date of Encounter: 01/04/17 Time of Encounter: 09:15 - Discharge Diagnosis (1) SCLC (small cell lung carcinoma) Priority: Primary Status: Acute Qualifiers: Laterality: left Qualified Code(s): C34.92 - Malignant neoplasm of unspecified part of left bronchus or lung (2) Postobstructive pneumonia Priority: Primary Status: Acute (3) Tumor lysis syndrome following antineoplastic drug therapy Priority: Primary Status: Acute (4) Acute kidney injury Priority: Primary Status: Acute (5) Type 2 diabetes mellitus Priority: Secondary Status: Chronic Qualifiers: Diabetes mellitus complication status: without complication Diabetes mellitus custodial insulin use: with custodial use Qualified Code(s): E11.9 - Type 2 diabetes mellitus without complications; Z79.4 - intermodal dispatcher (current) use of insulin - Discharge Medications Prescriptions: OxyCODONE/APAP 5/325 [Percocet 5/325 MG] 1 each PO Q4HR #20 tab levoFLOXacin [Levaquin] 750 mg PO ONCE #1 tablet Nicotine Patch [Nicoderm] 21 mg TD DAILY #30 predniSONE [PredniSONE] 40 mg PO DAILY #4 tab Home Medications: Albuterol Sulfate [Albuterol Inhaler] 2 puff IH Q4H PRN 11/28/16 [History] Aspirin 325 mg PO DAILY 11/28/16 [History] Carvedilol [Coreg] 6.25 mg PO BIDWM 11/28/16 [History] Finasteride [Proscar] 5 mg PO DAILY 11/28/16 [History] Fluticasone Propionate Nasal [Flonase] 1 spray NS BID 11/28/16 [History] Hydroxychloroquine [Plaquenuil] 400 mg PO DAILY 11/28/16 [History] Insulin Glargine,Hum.rec.anlog [Toujeo Solostar] 50 units SQ QPM 11/28/16 [ History] Ipratropium/Albuterol Neb [Duoneb] 3 ml IH Q6HR 11/28/16 [History] Leflunomide [Arava] 20 mg PO DAILY 11/28/16 [History] Lisinopril [Zestril] 20 mg PO BID 11/28/16 [History] Metformin HCl [Glucophage] 1,000 mg PO BID 11/28/16 [History] Simvastatin [Zocor] 20 mg PO HS 11/28/16 [History] Acetaminophen [Tylenol] 1,000 mg PO Q6HR PRN 12/14/16 [History] Fluticasone/Vilanterol [Breo Ellipta 100-25 Mcg INH] 1 puff IH DAILY 12/14/16 [ History] diazePAM [Valium] 10 mg PO BID PRN #5 tablet 12/14/16 [Rx] Allopurinol [Zyloprim 300 MG] 300 mg PO HS #30 tablet 12/20/16 [Rx] Mag Hydrox/Al Hydrox/Simeth [Maalox] 15 ml PO Q6HR PRN 12/25/16 [History] Magic Mouthwash [Magic Mouthwash BLM] 10 ml PO QID PRN #240 ml 12/25/16 [Rx] Ondansetron HCl [Zofran] 4 mg PO Q4H PRN #30 tablet 12/25/16 [Rx] Pantoprazole Sodium [Protonix] 40 mg PO DAILY 12/25/16 [History] Prochlorperazine Maleate [Compazine] 10 mg PO Q6H PRN #30 tablet 12/25/16 [Rx] Psyllium Husk (with Sugar) [Konsyl Psyllium Fiber Packet] 3.4 gm PO BID [History] Ranitidine HCl [Zantac] 150 mg PO BID #60 tablet 12/25/16 [Rx] Whey Protein Concen/Amino Acid [Whey Protein Concentrate Powd] 17 gm PO BID 06/12 [History] metroNIDAZOLE [Flagyl] 500 mg PO TID #15 tablet 12/25/16 [Rx] Furosemide [Lasix] 40 mg PO DAILY PRN #10 tablet 12/27/16 [Rx] Potassium Chloride [K-Tab ER] 20 meq PO DAILY PRN #10 tablet.er 12/27/16 [Rx] Nicotine Patch [Nicoderm] 21 mg TD DAILY #30 01/04/17 [Rx] OxyCODONE/APAP 5/325 [Percocet 5/325 MG] 1 each PO Q4HR #20 tab 01/04/17 [Rx] levoFLOXacin [Levaquin] 750 mg PO ONCE #1 tablet 01/04/17 [Rx] predniSONE [PredniSONE] 40 mg PO DAILY #4 tab 01/04/17 [Rx] Allergies/Adverse Reactions: Allergies Penicillins Allergy (Verified 12/25/16 10:04) Difficulty Swallowing Procedures/tests Complete & Pending: Procedures Performed prior 72 hours Category Date Time Status Retroperitoneal Ultrasound - Complete [US Exams 01/02/17 16:30 Completed retroperitoneal comp] [US] Stat IR thoracentesis ultrasound [IR] Routine IR 01/01/17 09:39 Completed Date of admission: 12/31/16 15:26 Primary care physician: Dionisio Dominique DO Consults: 01/01/17 10:26 Consult to Interventional Radiology [CONS] Routine Consulting Provider: Radiology Interventional Cols Reason for Consult: Thoracentesis, Left side, please send fluid for analysis Call Completed: Yes 01/01/17 15:36 Consult to Nephrology [CONS] Routine Consulting Provider: Kidney Danelle/ORIMI/PARG/BROWN Reason for Consult: Tumor lysis syndrome Time Notified: 15:35 Call Completed: Yes Discharging clinician: Minh Rivera Anticipated date of discharge: 01/04/17 - Patient Status Disposition: Home, Self-Care Condition: Fair Functional capacity at discharge: independent ambulation Overall status at discharge: patient is progressing back to baseline - Discharge Instructions Instructions: Pneumonia (DC) Follow Up With: Dionisio Dominique DO [Primary Care Provider] - 01/10/17 10:20 am Additional Instructions: Please follow-up with your primary care physician as scheduled. Please follow up with your oncologist as scheduled. Please take prednisone for 4 more days at home. Please take your antibiotic, Levaquin, on Saturday. Please resume your home medications. Please return for any new or worsening symptoms. - Diet and Activity Activity: increase activity as tolerated, wear oxygen at all times Diet: advance to your usual diet Interval History: Patient seen and examined at bedside. Patient states that he feels much better today shortness of breath is improved and his cough has nearly resolved. He denies chest pain, abdominal pain, nausea, vomiting. He is eating and drinking well and he is making good urine. Hospital course: Mr. Miller is a 56 year old male with history of COPD, small cell lung cancer presents with shortness of breath and cough. CT of the chest showed worsening of his lung cancer with possible obstruction atelectasis. Patient was treated with antibiotics and underwent rhonchi Skippy which revealed a large mucous plug that was removed. Postprocedure the patient the patient felt much better. She will be discharged home with a short course of steroids and antibiotics to complete a 7 day course. Patient will be discharged home in stable condition. - Time Spent with Patient Total time spent providing and/or coordinating discharge services: - Constitutional Vitals: Temp Pulse Resp BP Pulse Ox 97.4 F L 73 19 114/66 94 01/04/17 06:34 01/04/17 06:34 01/04/17 06:34 01/04/17 06:34 01/04/17 06:34 General appearance: Present: A&O X 3, no acute distress, answers questions appropriately - Respiratory Respiratory exam: Present: wheezes (Occasional scattered). Absent: rales, respiratory distress, rhonchi, tachypnea - Cardiovascular Cardiovascular exam: Present: RRR. Absent: gallop, rubs, systolic murmur - GI/Abdominal GI/Abdominal exam: Present: normal bowel sounds, soft. Absent: distended, tenderness - Neurological Exam Neurological exam: Present: alert, CN II-XII intact, oriented X3, no focal deficits <Gus Mazariegos - Last Filed: 01/04/17 17:04> Date of Encounter: 01/04/17 - Discharge Diagnosis (1) Acute on chronic respiratory failure with hypoxemia Status: Acute (2) Pneumonia Priority: Primary Status: Suspected Qualifiers: Pneumonia type: due to other aerobic Gram-negative bacteria Laterality: left Lung location: upper lobe of lung Qualified Code(s): J15.6 - Pneumonia due to other aerobic Gram-negative bacteria (3) SCLC (small cell lung carcinoma) Status: Acute Qualifiers: Laterality: left Qualified Code(s): C34.92 - Malignant neoplasm of unspecified part of left bronchus or lung (4) Tumor lysis syndrome following antineoplastic drug therapy Status: Acute (5) COPD (chronic obstructive pulmonary disease) Priority: Secondary Status: Acute Qualifiers: COPD type: COPD with acute lower respiratory infection Qualified Code(s): J44.0 - Chronic obstructive pulmonary disease with acute lower respiratory infection (6) Rheumatoid arthritis Priority: Secondary Status: Chronic Qualifiers: Rheumatoid arthritis location: unspecified site Rheumatoid factor presence : unspecified presence Qualified Code(s): M06.9 - Rheumatoid arthritis, unspecified (7) Tobacco abuse Priority: Secondary Status: Chronic Comments: Quit 1 week ago. (8) Type 2 diabetes mellitus Status: Chronic Qualifiers: Diabetes mellitus complication status: without complication Diabetes mellitus custodial insulin use: with custodial use Qualified Code(s): E11.9 - Type 2 diabetes mellitus without complications; Z79.4 - intermediate (current) use of insulin (9) CHF (congestive heart failure) Priority: Secondary Status: Chronic Qualifiers: Congestive heart failure type: systolic Congestive heart failure chronicity : chronic Qualified Code(s): I50.22 - Chronic systolic (congestive) heart failure Procedures/tests Complete & Pending: Procedures Performed prior 72 hours Category Date Time Status Retroperitoneal Ultrasound - Complete [US Exams 01/02/17 16:30 Completed retroperitoneal comp] [US] Stat Date of admission: 12/31/16 15:26 Primary care physician: Dionisio Dominique, Consults: 01/01/17 10:26 Consult to Interventional Radiology [CONS] Routine Consulting Provider: Radiology Interventional Cols Reason for Consult: Thoracentesis, Left side, please send fluid for analysis Call Completed: Yes 01/01/17 15:36 Consult to Nephrology [CONS] Routine Consulting Provider: Kidney Latta/PRINCE/JUAN/MAXINE Reason for Consult: Tumor lysis syndrome Time Notified: 15:35 Call Completed: Yes Hospital course: Mr. Miller is a 56 year old male - Time Spent with Patient Total time spent providing and/or coordinating discharge services: 38min - Constitutional Vitals: Temp Pulse Resp BP Pulse Ox 97.8 F 79 18 119/72 92 01/04/17 10:35 01/04/17 10:35 01/04/17 10:35 01/04/17 10:35 01/04/17 10:35 - Attending Attestation I examined this patient and my medical decision-making was reviewed with the Resident Physician on 01/04/17. I agree with the documented findings, disposition and treatment plan as described except to the extent set forth below. Mr. Miller was admitted for lung cancer with postobstructive pneumonia. He is doing better since bronch. He is afebrile with stable vitals and ready for discharge home. Exam Alert. Comfortable Mucus membranes moist Heart reg Rhonchi present Abd soft Plan D/C today Complete abx and steroids Follow up as outpatient.
[2017-01-04] MEDS: Levofloxacin 750 MG/150 ML 750 MG/150 ML BAG IVPB SCH (09:32)
[2017-01-04] MEDS: Insulin LISPRO 300 UNITS/3 ML VIAL SQ SCH (09:35)
[2017-01-04 10:38] VITALS: BP 119/72
== END 2017-01-04 12:02 | disposition home or self-care (01) | DRG 136 ==
LOC: EMEROO 06:41 → 3NENU 06:41 → SUATTDRO 15:26 → 2ANU 01-02 10:47
PROVIDERS: ADMIT Internal Medicine Endocrinology, Diabetes & Metabolism; ATTEND Internal Medicine
PROC: ENDOBRF (2017-01-03 09:40)

== ENCOUNTER 2018-05-11 10:52 | Inpatient (IN) ==
--- NOTE | 2018-05-11 10:57 | Emergency Department Note ---
Disposition Clinical Impression: T wave inversion in electrocardiogram, Pleural effusion Chest pain Qualifiers: Chest pain type: chest pain on breathing Qualified Code(s): R07.1 - Chest pain on breathing Disposition: Admitted As Inpatient Condition: Fair Time of Disposition: 16:07 General Adult HPI - General Stated complaint: chest pain Time Seen by Provider: 05/11/18 10:53 Source: patient Mode of arrival: ambulatory Limitations: no limitations Nursing Notes Reviewed: Yes Vital Signs Reviewed: Yes - History of Present Illness HPI Narrative: 50-year-old male presents to emergency department with concern for chest discomfort. Patient reports that the chest discomfort is on the right upper aspect of his chest. He reports it as sharp in nature and is worse upon inspiration. Denies that it radiates anywhere. Patient also reporting shortness of breath. Patient admitting to some hemoptysis as well. Patient has history of having pleural effusion nasty [place] be drained. Reports that it was draining last couple weeks ago were liter was taken off. 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 States that he is currently receiving immunotherapy for it. Patient denies any fever, does admit to chills. - Related Data Home Medications Medication Instructions Recorded Confirmed RX: Aspirin 325 mg PO DAILY 11/28/16 05/11/18 RX: Finasteride [Proscar] 5 mg PO DAILY 11/28/16 05/11/18 RX: Fluticasone Propionate Nasal 1 spray NS BID 11/28/16 05/11/18 [Flonase] RX: Hydroxychloroquine [Plaquenuil] 200 mg PO DAILY 11/28/16 05/11/18 RX: Simvastatin [Zocor] 20 mg PO HS 11/28/16 05/11/18 RX: Fluticasone/Vilanterol [Breo 1 puff IH DAILY 12/14/16 05/11/18 Ellipta 100-25 Mcg INH] RX: Leflunomide 20 mg PO DAILY 03/26/18 05/11/18 Previous Rx's Medication Instructions Recorded RX: Allopurinol [Zyloprim 300 MG] 300 mg PO HS #30 tablet 12/20/16 RX: Magic Mouthwash [Magic 10 ml PO QID PRN #240 ml 05/01/18 Mouthwash BLM] Allergies Allergy/AdvReac Type Severity Reaction Status Date / Time Penicillins Allergy Difficulty Verified 05/01/18 10:38 Swallowing All systems ED: reviewed and negative except as stated. Review of Systems: As Per HPI Constitutional: Denies: fever Cardiovascular: Reports: chest pain Respiratory: Reports: cough, hemoptysis Gastrointestinal: Denies: abdominal pain, nausea, vomiting Genitourinary: Denies: urgency, dysuria, frequency Musculoskeletal: Denies: back pain Past Medical History - Past Medical History Medical history: Reports: arthritis, CHF, COPD, diabetes, hypertension, TIA Surgical history: Reports: appendectomy, herniorrhaphy Psychiatric history: Reports: no psych history - Social History Smoking Status: Current some day smoker Smokeless Tobacco Status: No Alcohol use: Reports: none Drug use: Reports: none Physical Exam - General Limitations: no limitations General appearance: alert, anxious - Head Head exam: normocephalic - Eye Eye exam: Present: EOMI - ENT ENT exam: normal oropharynx - Neck Neck exam: Present: trachea midline - Chest Chest inspection: Present: symmetric chest wall rise - Respiratory Respiratory exam: Present: other (Decreased breath sounds on left). Absent: respiratory distress, accessory muscle use - Cardiovascular Cardiovascular exam: Present: regular rate, normal rhythm, normal heart sounds - Abdominal Exam Abdominal exam: Present: soft, Non-Tender. Absent: distention, guarding, rebound, rigidity - Extremities Exam Extremities exam: Present: normal capillary refill - Back Exam Back exam: Present: full ROM - Neurological Exam Neurological exam: Present: alert, oriented X3 - Psychiatric Psychiatric exam: Present: normal affect, normal mood - Skin Skin exam: Present: warm, dry, intact, normal color. Absent: rash Course Vital Signs Respiratory Rate 18 05/11/18 11:53 O2 Sat by Pulse Oximetry 98 05/11/18 11:53 Temperature 97.9 F 05/13/18 11:00 Pulse Rate 90 05/13/18 11:00 Respiratory Rate 17 05/13/18 11:00 Blood Pressure 111/71 05/13/18 11:00 O2 Sat by Pulse Oximetry 95 05/13/18 11:00 Oxygen Delivery Oxygen Delivery Room Air Medical Decision Making - MDM Narrative Medical decision making narrative: 58-year-old male presents emergency department concern for chest pain, hemoptysis, shortness of breath with history of lung cancer. On initial presentation, patient has stable vital signs. Chest x-ray reveals near complete opacification left hemithorax similar to previous exam per radiology. We did obtain a CTA of the chest and there was no evidence of pulmonary embolus. However, there is a largely partially loculated left-sided pleural effusion with internal nodularity, increasing on this study compared to previous one obtained on April 28. At this time, the largest concern is for possibility of empyema. We will start patient on antimicrobials. However, further in the differential would be for metastasis of his lung cancer. Patient needs admission with drainage. Patient treated with antimicrobials. We have provided vancomycin, aztreonam, gentamicin as he has an allergy to penicillins that is concerning for anaphylaxis. Patient does have evidence of T-wave inversions on EKG in lateral leads. The setting of chest pain, still some concern for acute coronary syndrome. However, it is most likely that the chest pain is related to his loculated left-sided pleural effusion. We did provide aspirin to the patient. Initial troponin did not reveal any evidence of ischemia. Patient was also given pain medication in the emergency department as well. He is admitted to the hospitalist. He was given 1 L bolus of fluids. Discussed with family at bedside the findings of that CT scan as well as admission and they agreed with the plan. Chest X-Ray 05/11/18 10:54 IMPRESSION: Near complete opacification of the left hemithorax similar to the previous exam. D/ / 05/11/2018 11:19:49 Syd Rios MD / [place] Interpreting Provider: Syd Rios MD Chest CTA 05/11/18 11:13 IMPRESSION: No convincing evidence of pulmonary embolism. Large partially loculated left-sided pleural effusion with internal nodularity, increased on current examination as compared to prior study of 04/28/2018. differential considerations include pleural based metastasis or proteinaceous debris. Grossly stable AP window lymphadenopathy. D/ / Higinio Landers MD / Higinio Landers MD Interpreting Provider: Higinio Landers MD - Lab Data Result diagrams: 05/13/18 10:33 05/13/18 10:33 Lab Results 05/11/18 05/11/18 05/11/18 Range/Units 10:54 11:04 11:04 WBC 7.0 (4.3-11.1) K/mcL RBC 2.70 L (4.19-5.50) M/mcL Hgb 8.0 L (12.9-16.9) g/dL Hct 25.2 L (37.5-50.1) % MCV 93.3 (83.0-100.0) fL MCH 29.6 (28.0-33.3) pg MCHC 31.7 (31.6-35.5) g/dL RDW 16.0 H (11.5-14.5) % Plt Count 262 (140-400) K/mcL MPV 9.3 L (9.4-12.4) fL Immature Gran % 0.1 (0-4) % Seg Neutrophils % 85.2 % Lymphocytes % 7.8 % Monocytes % 6.8 % Eosinophils % 0.0 % Basophils % 0.1 % Neutrophils # 6.0 (1.6-8.9) K/mcL Lymphocytes # 0.6 (0.6-4.6) K/mcL Monocytes # 0.5 (0.0-1.3) K/mcL Eosinophils # 0.0 (0.0-0.6) K/mcL Basophils # 0.0 (0.0-0.2) K/mcL PT 14.6 H (9.4-12.1) Seconds INR 1.3 APTT 35.9 (26.0-36.0) Seconds Sodium 136 (136-145) mEq/L Potassium 4.3 (3.5-5.1) mEq/L Chloride 104 (98-107) mEq/L Carbon Dioxide 24 (23-29) mEq/L BUN 29 H (6-20) mg/dL Creatinine 1.16 (0.70-1.30) mg/dL Est GFR ( Amer) > 60 (> 60) Est GFR (Non-Af Amer) > 60 (> 60) BUN/Creatinine Ratio 25 (6-26) Glucose 152 H (70-105) mg/dL Calculated Osmolality 291 (280-300) Calcium 8.6 (8.6-10.3) mg/dL Troponin I < 0.03 (< 0.04) ng/mL Blood Type Antibody Screen Crossmatch 05/11/18 Range/Units 11:05 WBC (4.3-11.1) K/mcL RBC (4.19-5.50) M/mcL Hgb (12.9-16.9) g/dL Hct (37.5-50.1) % MCV (83.0-100.0) fL MCH (28.0-33.3) pg MCHC (31.6-35.5) g/dL RDW (11.5-14.5) % Plt Count (140-400) K/mcL MPV (9.4-12.4) fL Immature Gran % (0-4) % Seg Neutrophils % % Lymphocytes % % Monocytes % % Eosinophils % % Basophils % % Neutrophils # (1.6-8.9) K/mcL Lymphocytes # (0.6-4.6) K/mcL Monocytes # (0.0-1.3) K/mcL Eosinophils # (0.0-0.6) K/mcL Basophils # (0.0-0.2) K/mcL PT (9.4-12.1) Seconds INR APTT (26.0-36.0) Seconds Sodium (136-145) mEq/L Potassium (3.5-5.1) mEq/L Chloride (98-107) mEq/L Carbon Dioxide (23-29) mEq/L BUN (6-20) mg/dL Creatinine (0.70-1.30) mg/dL Est GFR ( Amer) (> 60) Est GFR (Non-Af Amer) (> 60) BUN/Creatinine Ratio (6-26) Glucose (70-105) mg/dL Calculated Osmolality (280-300) Calcium (8.6-10.3) mg/dL Troponin I (< 0.04) ng/mL Blood Type O POSITIVE Antibody Screen NEGATIVE Crossmatch See Detail - EKG Data EKG #1 EKG attestation: Yes I reviewed and interpreted this EKG. EKG results narrative: D: 14 Heart rate 90 bpm, QRS duration 85 ms, QT 358 ms, normal axis. Sinus rhythm with a ventricular rate 90 beats for minute. There are T-wave inversions in the lateral leads that are new from previous EKG. Attestation Statement - Attestation Attestation: I, Naresh Mustafa, examined this patient and my medical decision-making was reviewed with the WINDOWS ADMIN/PA/Advanced Practice Nurse/Resident Physician. I agree with the documented findings, disposition and treatment plan as described except to the extent set forth below. 58-year-old male presents emergency Department with concerns of difficulty in breathing. Patient has a history of lung cancer that has metastasized. He had a pleurocentesis done about 3 weeks ago. Patient reports acute onset of pleuritic chest pain with shortness of breath. Pain is in the center of his chest, sharp and stabbing, worse with breathing. Chest x-ray shows whiteout of the left lung. CTA of the chest shows a large amount of fluid in the left lung cavity. His hemoglobin is not significantly dropped from his previous hemoglobins. His blood pressure is low at 95 systolic however he states he generally has a blood pressure of around 100 systolic. Patient will require pleurocentesis by interventional radiology. He will be admitted to hospitalist for further care and evaluation. He was started on antibiotics in the emergency department for possible empyema. The high probability of a clinically significant, sudden or life threatening deterioration of the respiratory and cardiovascular system(s) required my full and direct attention, intervention and personal management. The aggregate critical care time was 40 minutes. This time is in addition to time spent performing reported procedures but includes the following: x Data Review and interpretation x Patient assessment and monitoring of vital signs x Documentation x Medication orders and management
[2018-05-11] MEDS ORDERED: 0.9 % Sodium Chloride 1,000 ML ONE (11:07)
[2018-05-11] MEDS ORDERED: Isovue-370 500 ML INFUS..BTL IV ONE (11:13)
[2018-05-11 11:16] LABS: Basophils % 0.1 %; Hematocrit 25.2 % (37.5-50.1); Immature Granulocytes % 0.1 % (0-4); Lymphocytes # 0.6 K/mcL (0.6-4.6); Lymphocytes % 7.8 %; Mean Corpuscular HGB Conc 31.7 g/dL (31.6-35.5); Mean Corpuscular Hemoglobin 29.6 pg (28.0-33.3); Mean Corpuscular Volume 93.3 fL (83.0-100.0); Mean Platelet Volume 9.3 fL (9.4-12.4); Monocytes # 0.5 K/mcL (0.0-1.3); Monocytes % 6.8 %; Platelet Count 262 K/mcL (140-400); Segmented Neutrophils % 85.2 %
[2018-05-11] MEDS ORDERED: Ipratropium/Albuterol Neb 3 ML IH ONE (11:20)
[2018-05-11 11:24] LABS: INR 1.3; Prothrombin Time 14.6 Seconds (9.4-12.1)
[2018-05-11 11:26] LABS: Activated Partial Thrombo Time 35.9 Seconds (26.0-36.0)
[2018-05-11 11:37] LABS: BUN/Creatinine Ratio 25 (6-26); Blood Urea Nitrogen 29 mg/dL (6-20); Calcium 8.6 mg/dL (8.6-10.3); Carbon Dioxide 24 mEq/L (23-29); Chloride 104 mEq/L (98-107); Glucose 152 mg/dL (70-105); Osmolality,Calculated 291 (280-300); Potassium 4.3 mEq/L (3.5-5.1); Sodium 136 mEq/L (136-145); eGFR For Non-African Americans > 60 (> 60)
[2018-05-11 11:38] LABS: Troponin I < 0.03 ng/mL (< 0.04)
[2018-05-11] MEDS ORDERED: *HR* FentaNYL (PF) 100 MCG/2 ML VIAL IVP ONE (13:14)
[2018-05-11] MEDS ORDERED: Levofloxacin 750 MG/150 ML 750 MG/150 ML BAG IVPB ONE (13:27)
[2018-05-11] MEDS ORDERED: MetroNIDAZOLE 500 MG/100 ML 500 MG/100 ML BAG IVPB ONE (13:27)
[2018-05-11] MEDS ORDERED: Gentamicin 360 MG in 0.9 % Sodium Chloride 100 ML IVPB ONE (13:32)
[2018-05-11] MEDS ORDERED: 0.9 % Sodium Chloride 1,000 ML IVC ONE (14:08)
[2018-05-11] MEDS ORDERED: Aztreonam 2,000 MG in Water for inj. (sterile) 20 ML 20 ML IVPB SCH (15:00)
--- NOTE | 2018-05-11 15:11 | Internal Med History&Physical ---
Date of Encounter: 05/11/18 Time of Encounter: 15:09 Internal Medicine - H&P: HPI Chief complaint: shortness of breath Admitted From: Home Plans for Post Hospital Care: Transfer Long Term Facility History of present illness: Mr. 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 Patient recently had a left-sided thoracentesis were about a liter of fluid which was hemorrhagic. Patient was considered to have pr ogression of pleural metastasis. Patient did not receive any antibiotics after. Patient with metastatic small cell lung cancer to his adrenal as well as brain. Patient was on palliative chemotherapy and radiation therapy. Currently appears to be on immunotherapy Patient denies any fevers but complains of some chills. Has cough but without any expectoration. Has associated chest pain which radiates to his right shoulder and arm. Denies any nausea vomiting. Denies any constipation or diarrhea. Patient was ordered to receive vancomycin, aztreonam, gentamicin in ER however has only received Levaquin. Patient also received 1 L of normal saline. Patient had a CTA which showed large partially loculated left-sided pleural effusion with internal nodularities which are slightly increased. EKG showed sinus rhythm with heart rate of 90 and some T-wave inversion in lateral leads. I discussed CODE STATUS with patient/family and patient wants to be full code for short-term if needed. However per family patient has not completely thought about it himself. Past Med Surg Social Fam HX - Past Medical History Attestation: Yes The following information was validated with the patient. Medical history: arthritis, cancer (lung), CHF, COPD, diabetes, hypertension, TIA Additional medical history: lunf cancer Psychiatric history: no psych history - Past Surgical History Surgical History: appendectomy, herniorrhaphy Additional surgical history: carpal tunnel surgery, shoulder surgery. - Social History Smoking Status: Current some day smoker Smokeless Tobacco Status: No Alcohol use: none Drug use: none - Family History Father Living Status: Hx Family Respiratory Disorders: Yes (Emphysema) Hx Family Neurologic Disorders: Yes (Stroke) Internal Medicine - H&P: Meds Aspirin 325 mg PO DAILY 11/28/16 [History] Finasteride [Proscar] 5 mg PO DAILY 11/28/16 [History] Fluticasone Propionate Nasal [Flonase] 1 spray NS BID 11/28/16 [History] Hydroxychloroquine [Plaquenuil] 200 mg PO DAILY 11/28/16 [History] Simvastatin [Zocor] 20 mg PO HS 11/28/16 [History] Fluticasone/Vilanterol [Breo Ellipta 100-25 Mcg INH] 1 puff IH DAILY 12/14/16 [History] Allopurinol [Zyloprim 300 MG] 300 mg PO HS #30 tablet 12/20/16 [Rx] Leflunomide 20 mg PO DAILY 03/26/18 [History] Magic Mouthwash [Magic Mouthwash BLM] 10 ml PO QID PRN #240 ml 05/01/18 [Rx] Allergy/AdvReac Type Severity Reaction Status Date / Time Penicillins Allergy Difficulty Verified 05/01/18 10:38 Swallowing All Systems PM: A 10-system review of systems was performed and is negative for pertinent findings except as documented above in the HPI. - Constitutional Vitals: Temp Pulse Resp BP Pulse Ox 97.7 F 104 28 108/69 95 05/11/18 11:54 05/11/18 14:21 05/11/18 14:21 05/11/18 14:21 05/11/18 14:21 Exam: Constitutional: Vitals as noted. Conversant. Mild respiratory Distress. Eyes : Sclera white, conjunctiva pale, no lid lag, PEARLA. ENT : Grossly normal hearing. Oropharyngeal exam unremarkable. Moist mucus membranes. JVD present, no thyromegaly or mass. Respiratory : Clear to auscultation bilaterally on Rt. Decreased air entry on Lt base and mid lung field. some air entry at apex. some accessory muscle use, no rales, rhonchi or wheezes Cardiovascular : tachycardic, +S1, +S2. no murmur, gallop, rubs. No chest wall tenderness GI/Abdominal : Soft, Non-tender, Non-distended, normal bowel sounds, soft, no peritoneal signs. no orgenomegaly or mass appreciated. no hernia. Musculoskeletal: no deformity noted. no edema or cyanosis. warm extremities, pulses palpable and symmetrical in UE/LE. no calf tenderness. Neurological: AO X3, CN II-XII grossly intact, grossly normal motor and sensory exam. Skin: No skin rash, lesions or ulcers noted. Internal Med - H&P Results - Labs CBC & Chem 7: 05/11/18 11:04 05/11/18 16:25 Labs: Short CBC 05/11/18 Range/Units 11:04 WBC 7.0 (4.3-11.1) K/mcL Hgb 8.0 L (12.9-16.9) g/dL Hct 25.2 L (37.5-50.1) % Plt Count 262 (140-400) K/mcL Neutrophils # 6.0 (1.6-8.9) K/mcL BMP 05/11/18 11:04 Sodium 136 Potassium 4.3 Chloride 104 Carbon Dioxide 24 BUN 29 H Creatinine 1.16 Glucose 152 H Calcium 8.6 Cardiac Enzymes 05/11/18 Range/Units 11:04 Troponin I < 0.03 (< 0.04) ng/mL - Impressions ITS Impressions Chest X-Ray 05/11/18 10:54 IMPRESSION: Near complete opacification of the left hemithorax similar to the previous exam. D/ / 05/11/2018 11:19:49 Syd Rios MD / [place] Interpreting Provider: Syd Rios MD Chest CTA 05/11/18 11:13 IMPRESSION: No convincing evidence of pulmonary embolism. Large partially loculated left-sided pleural effusion with internal nodularity, increased on current examination as compared to prior study of 04/28/2018. differential considerations include pleural based metastasis or proteinaceous debris. Grossly stable AP window lymphadenopathy. D/ / Higinio Landers MD / Higinio Landers MD Interpreting Provider: Higinio Landers MD - Assessment and plan (1) Pleural effusion Current Visit: Yes Status: Acute Assessment and plan: - Patient with large loculated pleural effusion on the left - Patient without white count or fevers. - Spoke to interventional radiology. Appearance of effusion exactly similar to his previous scan done on 04/30/18. - Likely malignant effusion. However possibility of empyema could not be ruled out - Patient currently hemodynamically stable. - We will continue empiric antibiotics for now with vancomycin, Levaquin and met ronidazole - We will plan for IR guided drainage tomorrow morning. If patient's develop signs of septicemia we will call IR again for immediate drainage. - We will consult pulmonology. (2) Mass of left lung Current Visit: No Status: Acute (3) Shortness of breath Current Visit: No Status: Acute Assessment and plan: - Likely related to large pleural effusion continue supplemental oxygen - Continue home inhalers (4) CKD (chronic kidney disease) stage 3, GFR 30-59 ml/min Current Visit: No Status: Chronic Assessment and plan: - Patient with likely history of CKD possibly from previous kidney injury from tumor lysis - Monitor closely given patient on vancomycin. vancomycin to be dosed by pharmacy with drug monitoring. (5) SCLC (small cell lung carcinoma) Current Visit: No Status: Chronic (6) Tobacco abuse Current Visit: No Status: Chronic Assessment and plan: - counselled on cessation - Provide nicotine patch (7) Type 2 diabetes mellitus Current Visit: No Status: Chronic Assessment and plan: - Patient not on any medication at home - Monitor Accu-Cheks Qualifiers: Diabetes mellitus shelter insulin use: with shelter use Diabetes mellitus complication status: without complication Qualified Code(s): E11.9 - Type 2 diabetes mellitus without complications; Z79.4 - intermediate (current) use of insulin (8) Acute on chronic respiratory failure with hypoxemia Current Visit: No Status: Acute Assessment and plan: - Likely due to effusion on baseline lung cancer as well as COPD - Management as above (9) COPD (chronic obstructive pulmonary disease) Current Visit: No Status: Acute Assessment and plan: - Does not appear to be in copd exacerbation - Continue home medication Qualifiers: COPD type: COPD with acute lower respiratory infection Qualified Code(s): J44.0 - Chronic obstructive pulmonary disease with acute lower respiratory infection (10) HTN (hypertension) Current Visit: Yes Status: Acute Assessment and plan: - Not taking any home medication as it corrected after he lost significant weight - Monitor for now Qualifiers: Hypertension type: essential hypertension Qualified Code(s): I10 - Essential (primary) hypertension (11) Anemia Current Visit: Yes Status: Acute Assessment and plan: - Appears to be chronic - Likely related to his cancer and chemotherapy - Monitor for now Qualifiers: Other causes of anemia: other cause, not classified Qualified Code(s): D64.89 - Other specified anemias - Time Spent With Patient Total time spent is greater than 50% in coordination of care (as documented) at patient's floor/unit and/or counseling patient:
[2018-05-11] MEDS ORDERED: Naloxone 0.4 MG/ML INJ IVP PRN (15:51)
[2018-05-11] MEDS ORDERED: Aspirin 81 MG TAB.CHEW PO STA (16:05)
[2018-05-11 16:57] LABS: BUN/Creatinine Ratio 23 (6-26); Blood Urea Nitrogen 26 mg/dL (6-20); Calcium 8.1 mg/dL (8.6-10.3); Carbon Dioxide 21 mEq/L (23-29); Chloride 106 mEq/L (98-107); Glucose 166 mg/dL (70-105); Osmolality,Calculated 289 (280-300); Potassium 4.3 mEq/L (3.5-5.1); Sodium 135 mEq/L (136-145); eGFR For Non-African Americans > 60 (> 60)
[2018-05-11] MEDS ORDERED: Acetaminophen 325 MG TABLET PO PRN (17:03)
[2018-05-11] MEDS ORDERED: Ipratropium/Albuterol Neb 3 ML IH PRN (17:18)
[2018-05-11] MEDS: Nicotine 14 MG PATCH.TD24 TD SCH (17:27)
[2018-05-11 17:30] LABS: Troponin I < 0.03 ng/mL (< 0.04)
[2018-05-11] MEDS: *HR* HYDROcodone/Acet 10/325 mg TABLET PO PRN (18:02)
[2018-05-12] MEDS: *HR* HYDROcodone/Acet 10/325 mg TABLET PO PRN ×4 (02:28→23:58)
[2018-05-12 04:42] LABS: Hemoglobin 6.8 g/dL (12.9-16.9); Immature Granulocytes % 0.3 % (0-4); Lymphocytes # 0.4 K/mcL (0.6-4.6); Mean Corpuscular HGB Conc 30.9 g/dL (31.6-35.5); Mean Corpuscular Hemoglobin 29.6 pg (28.0-33.3); Mean Corpuscular Volume 95.7 fL (83.0-100.0); Mean Platelet Volume 10.1 fL (9.4-12.4); Monocytes # 0.5 K/mcL (0.0-1.3); Monocytes % 7.9 %; Neutrophils # 5.5 K/mcL (1.6-8.9); Platelet Count 194 K/mcL (140-400); Red Cell Distribution Width 15.9 % (11.5-14.5); Segmented Neutrophils % 85.8 %
[2018-05-12 04:57] LABS: Lactate Dehydrogenase 171 Units/L (140-271); Total Protein 6.2 g/dL (6.4-8.9)
[2018-05-12 04:58] LABS: Alanine Aminotransferase 30 Units/L (7-52); Albumin 2.8 g/dL (3.5-5.7); Albumin/Globulin Ratio 0.8 (1.1-2.2); Alkaline Phosphatase 113 Units/L (34-104); Aspartate Amino Transferase 24 Units/L (13-39); BUN/Creatinine Ratio 21 (6-26); Bilirubin,Total 0.5 mg/dL (0.3-1.0); Blood Urea Nitrogen 25 mg/dL (6-20); Calcium 8.2 mg/dL (8.6-10.3); Carbon Dioxide 21 mEq/L (23-29); Chloride 108 mEq/L (98-107); Globulin 3.3 g/dL (2.4-3.5); Glucose 99 mg/dL (70-105); Osmolality,Calculated 286 (280-300); Potassium 4.8 mEq/L (3.5-5.1); Sodium 136 mEq/L (136-145); Total Protein 6.1 g/dL (6.4-8.9); eGFR For Non-African Americans > 60 (> 60)
--- NOTE | 2018-05-12 07:24 | Pulmonology Consult Note ---
Date of Encounter: 05/12/18 Time of Encounter: 07:23 Assessment and Plan (1) Pleural effusion Current Visit: Yes Status: Acute I reviewed the imaging and recent medical records pertinent to this diagnosis. 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 I have very low concern that this represents empyema given radiographic appearance and the fact patient does not have leukocytosis has been afebrile and really otherwise little evidence of active infection. I agree with diagnostic and therapeutic thoracentesis today with interventional radiology please send studies for pH LDH and total protein Gram stain and culture including anaerobic as well as cell count and cytology. Over the next 24-40 hours will decide on what would be the definitive strategy for preventing reaccumulation and patient discomfort this may in detail a Pleurx catheter placement which could be stymied by partial loculation of fluid versus pleurodesis with CT surgery Is reasonable to continue antimicrobials until initial pleural fluid studies are back however I suspect they can be discontinued in the next 24 hours (2) COPD with acute exacerbation Current Visit: No Status: Acute Persistent cough with wheezing on examination likely related to mild COPD exacer bation I have started a combination inhaled corticosteroid/long-acting beta agonist for the patient as well as ordered a short burst of prednisone I suspect that antibiotics could be switched to macrolide-based therapy once confirmation that they were not dealing with an infected pleural space is confirmed (3) SCLC (small cell lung carcinoma) Current Visit: No Status: Chronic Primary management through [facility] he is set up to go to [facility] for a second opinion later this week Management of anemia per primary medicine service which it appears that his being set up for blood transfusion a day for hemoglobin less than 7 which is appropriate (4) Tobacco abuse Current Visit: No Status: Chronic Tobacco cessation counseling given Thank you for this consultation pulmonary will continue to follow History of Present Illness Consult date: 05/12/18 Requesting physician: Titi Barksdale Reason for consult: pleural effusion Chief complaint: Difficulty in Breathing History of present illness: This is a pleasant 58-year-old gentleman who presented with chest pain and difficulty in breathing that started yesterday. In the emergency department a CT angiogram was performed which was negative for filling defect notable for a loculated left pleural effusion patient has been started on broad-spectrum antibiotics and pulmonary was consulted for further evaluation and management of the pleural effusion. 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 Had a similar presentation earlier in the month with noted large loculated left pleural effusion status post Thoracentesis on 04/30/2018 hemorrhagic fluid 1 L drained. Cytology was negative for malignancy. Of note he has evidence of a left-sided pleural studding consistent with the metastatic pleural disease. In addition to treatment he has received [facility] he is being referred to [facility] for a second opinion and possibility of enrollment in any active Clinical trials. Patient has been afebrile within normal white count. He has a chronic anemia which is slightly lower than baseline at present. He denies any nausea vomiting fevers or chills at home. No sick contacts. Continues to smoke. He had lost about 70 pounds in a short period of time after initiation of chemotherapy that seems to leveled off denies any hemoptysis leading up to this event he has been coughing occasionally bringing up some whitish phlegm most often times it is nonproductive however. Past Med Surg Social Fam HX - Past Medical History Medical history: arthritis, CHF, COPD, diabetes, hypertension, TIA Additional medical history: lunf cancer Psychiatric history: no psych history - Past Surgical History Surgical History: appendectomy, herniorrhaphy Additional surgical history: carpal tunnel surgery, shoulder surgery. - Social History Smoking Status: Current some day smoker Smokeless Tobacco Status: No Alcohol use: none Drug use: none - Family History Father History Unknown: Yes Living Status: Hx Family Respiratory Disorders: Yes (Emphysema) Hx Family Neurologic Disorders: Yes (Stroke) Medications and Allergies Aspirin 325 mg PO DAILY 11/28/16 [History] Finasteride [Proscar] 5 mg PO DAILY 11/28/16 [History] Fluticasone Propionate Nasal [Flonase] 1 spray NS BID 11/28/16 [History] Hydroxychloroquine [Plaquenuil] 200 mg PO DAILY 11/28/16 [History] Simvastatin [Zocor] 20 mg PO HS 11/28/16 [History] Fluticasone/Vilanterol [Breo Ellipta 100-25 Mcg INH] 1 puff IH DAILY 12/14/16 [History] Allopurinol [Zyloprim 300 MG] 300 mg PO HS #30 tablet 12/20/16 [Rx] Leflunomide 20 mg PO DAILY 03/26/18 [History] Magic Mouthwash [Magic Mouthwash BLM] 10 ml PO QID PRN #240 ml 05/01/18 [Rx] Allergy/AdvReac Type Severity Reaction Status Date / Time Penicillins Allergy Difficulty Verified 05/01/18 10:38 Swallowing All Systems: The remainder of the systems were reviewed and are negative Physical Examination Vital Signs: Vital Signs, Last 4 Hours Temp Pulse Resp BP Pulse Ox 05/12/18 07:10 98.4 F 99 16 97/74 96 05/12/18 05:17 98.1 F 99 18 90/62 97 General appearance: no acute distress, other (He is pale appearing) Eyes: nonicteric Effort: mildly labored Auscultation: left: diminished breath sounds, right: wheezes Cardiovascular: other (Rapid rate regular rhythm) Gastrointestinal: normoactive bowel sounds, soft, non-tender Integumentary: normal Extremities: no edema Musculoskeletal: no deformities normal mental status, non-focal exam mood appropriate Results - Laboratory Findings CBC and BMP: 05/12/18 04:03 05/12/18 04:03 PT/INR, D-dimer PT 14.6 Seconds (9.4-12.1) H 05/11/18 10:54 Abnormal lab findings: Abnormal lab results RBC 2.30 M/mcL (4.19-5.50) L 05/12/18 04:03 Hgb 6.8 g/dL (12.9-16.9) L 05/12/18 04:03 Hct 22.0 % (37.5-50.1) L 05/12/18 04:03 MCHC 30.9 g/dL (31.6-35.5) L 05/12/18 04:03 RDW 15.9 % (11.5-14.5) H 05/12/18 04:03 Lymphocytes # 0.4 K/mcL (0.6-4.6) L 05/12/18 04:03 PT 14.6 Seconds (9.4-12.1) H 05/11/18 10:54 Chloride 108 mEq/L (98-107) H 05/12/18 04:03 Carbon Dioxide 21 mEq/L (23-29) L 05/12/18 04:03 BUN 25 mg/dL (6-20) H 05/12/18 04:03 POC Glucose 160 mg/dL (70-99) H 05/11/18 20:40 Calcium 8.2 mg/dL (8.6-10.3) L 05/12/18 04:03 Alkaline Phosphatase 113 Units/L (34-104) H 05/12/18 04:03 Serum Total Protein 6.1 g/dL (6.4-8.9) L 05/12/18 04:03 Albumin 2.8 g/dL (3.5-5.7) L 05/12/18 04:03 Albumin/Globulin Ratio 0.8 (1.1-2.2) L 05/12/18 04:03 - Microbiology Findings Microbiology Findings: Microbiology, Last 48 Hours 05/11/18 11:05 Blood Culture - Preliminary Peripheral Venipuncture Culture is incubating and being continuously monitored for growth. Final report to follow. - Diagnostic Findings Chest x-ray: report reviewed, image reviewed CT scan - chest: report reviewed, image reviewed - Clinical Findings Intake & Output: Intake & Output 05/11/18 05/11/18 05/12/18 15:59 23:59 07:59 Intake Total 1000 / 1000 1629 / 1629 Output Total 350 / 350 275 / 275 Balance 1000 / 1000 1279 / 1279 -275 / -275 Weight 82.1 kg 76.7 kg Consult Discharge Plan - Plan Referrals: Mohini Gaytan [Primary Care Provider] -
[2018-05-12] MEDS: Nicotine 14 MG PATCH.TD24 TD SCH (07:42)
[2018-05-12] MEDS: Finasteride 5 MG TABLET PO SCH ×2 (07:43→08:50)
--- NOTE | 2018-05-12 08:09 | Internal Med Progress Note ---
Hospitalist Progress Note - Encounter Date of Encounter: 05/12/18 Time of Encounter: 08:07 - Subjective Interval History: Patient seen and examined bedside this morning. No acute overnight events. Patient much more comfortable this morning. Minimal chest pain controlled with pain medication. Shortness of breath at baseline. Blood pressure slightly on the lower end overnight. No fevers chills nausea vomiting or diarrhea. - Exam Vitals: Temp Pulse Resp BP Pulse Ox 98.4 F 101 16 97/74 96 05/12/18 07:10 05/12/18 07:52 05/12/18 07:10 05/12/18 07:10 05/12/18 07:10 Exam: Constitutional: Vitals as noted. Conversant. Mild respiratory Distress. Eyes : Sclera white, conjunctiva pale, no lid lag, PEARLA. ENT : Grossly normal hearing. Oropharyngeal exam unremarkable. Moist mucus membranes. JVD present, no thyromegaly or mass. Respiratory : Monophonic rhonchus on Rt. Decreased air entry on Lt base and mid lung field. some air entry at apex. no accessory muscle use, no rales, rhonchi or wheezes Cardiovascular : tachycardic, +S1, +S2. no murmur, gallop, rubs. No chest wall tenderness GI/Abdominal : Soft, Non-tender, Non-distended, normal bowel sounds, soft, no peritoneal signs. no orgenomegaly or mass appreciated. no hernia. Musculoskeletal: no deformity noted. no edema or cyanosis. warm extremities, pulses palpable and symmetrical in UE/LE. no calf tenderness. Neurological: AO X3, CN II-XII grossly intact, grossly normal motor and sensory exam. Skin: hyperpigmentation from healed wound on both LE shins. - Assessment and Plan (1) Pleural effusion Current Visit: Yes Status: Acute (2) Mass of left lung Current Visit: No Status: Acute (3) Shortness of breath Current Visit: No Status: Acute (4) CKD (chronic kidney disease) stage 3, GFR 30-59 ml/min Current Visit: No Status: Chronic (5) SCLC (small cell lung carcinoma) Current Visit: No Status: Chronic (6) Tobacco abuse Current Visit: No Status: Chronic (7) Type 2 diabetes mellitus Current Visit: No Status: Chronic (8) Acute on chronic respiratory failure with hypoxemia Current Visit: No Status: Acute (9) COPD (chronic obstructive pulmonary disease) Current Visit: No Status: Acute (10) HTN (hypertension) Current Visit: Yes Status: Acute (11) Anemia Current Visit: Yes Status: Acute - Summary of Assessment and Plan Summary of Assessment and Plan: Pleural effusion - Patient with large loculated pleural effusion on the left - Patient without white count or fevers. - Appearance of effusion exactly similar to his previous scan done on 04/30/18. - Likely malignant effusion. However infectious etiology still possibility - Patient currently hemodynamically stable. - Continue empiric antibiotics for now with vancomycin, Levaquin and me tronidazole. Likely will discontinue if pleural fluid without suspicious of infectious cause. - Plan for IR guided drainage today. - Pulmonology recommendation appreciated.. COPD exacerbation - Started on Symbicort and short course of prednisone - Will switch antibiotics to azithromycin depending on pleural fluid testing. CKD - Patient with likely history of CKD possibly from previous kidney injury from tumor lysis - Monitor closely given patient on vancomycin. vancomycin to be dosed by pharm acy with drug monitoring. Type 2 diabetes mellitus - Patient not on any medication at home - Monitor Accu-Cheks Acute on chronic respiratory failure with hypoxemia - Likely due to effusion on baseline lung cancer as well as COPD - Management as above h/o HTN - Not taking any home medication as it corrected after he lost significant weight - Monitor for now Anemia - Appears to be chronic - Likely cancer from hemorrhagic effusion and chemotherapy - Hb dropped today. Will transfuse 1 PRBC. - Time Spent with Patient Total time spent is greater than 50% in coordination of care (as documented) at patient's floor/unit and/or counseling patient: Internal Medicine: Result - Labs CBC & Chem 7: 05/12/18 04:03 05/12/18 04:03 Labs: Short CBC 05/11/18 05/12/18 Range/Units 11:04 04:03 WBC 7.0 6.5 (4.3-11.1) K/mcL Hgb 8.0 L 6.8 L (12.9-16.9) g/dL Hct 25.2 L 22.0 L (37.5-50.1) % Plt Count 262 194 (140-400) K/mcL Neutrophils # 6.0 5.5 (1.6-8.9) K/mcL BMP 12/05/11/18 05/12/18 11:04 16:25 04:03 Sodium 136 135 L 136 Potassium 4.3 4.3 4.8 Chloride 104 106 108 H Carbon Dioxide 24 21 L 21 L BUN 29 H 26 H 25 H Creatinine 1.16 1.11 1.19 Glucose 152 H 166 H 99 Calcium 8.6 8.1 L 8.2 L Cardiac Enzymes 05/11/18 05/11/18 Range/Units 11:04 16:25 Troponin I < 0.03 < 0.03 (< 0.04) ng/mL Liver Function 05/12/18 Range/Units 04:03 Total Bilirubin 0.5 (0.3-1.0) mg/dL AST 24 (13-39) Units/L ALT 30 (7-52) Units/L Alkaline Phosphatase 113 H (34-104) Units/L Albumin 2.8 L (3.5-5.7) g/dL - ABG Interpretation ABG results: PT/INR, D-dimer PT 14.6 Seconds (9.4-12.1) H 05/11/18 10:54 - Impressions Impressions Chest X-Ray 05/11/18 10:54 IMPRESSION: Near complete opacification of the left hemithorax similar to the previous exam. D/ / 05/11/2018 11:19:49 Syd Rios MD / [place] Interpreting Provider: Syd Rios MD Chest CTA 05/11/18 11:13 IMPRESSION: No convincing evidence of pulmonary embolism. Large partially loculated left-sided pleural effusion with internal nodularity, increased on current examination as compared to prior study of 04/28/2018. differential considerations include pleural based metastasis or proteinaceous debris. Grossly stable AP window lymphadenopathy. D/ / Higinio Landers MD / Higinio Landers MD Interpreting Provider: Higinio Landers MD Consult Discharge Plan - Plan Referrals: Mohini Gaytan [Primary Care Provider] - (7) Type 2 diabetes mellitus Qualifiers: Diabetes mellitus intermediate insulin use: with intermediate use Diabetes mellitus complication status: without complication Qualified Code(s): E11.9 - Type 2 diabetes mellitus without complications; Z79.4 - FDC (current) use of insulin (9) COPD (chronic obstructive pulmonary disease) Qualifiers: COPD type: COPD with acute lower respiratory infection Qualified Code(s): J44.0 - Chronic obstructive pulmonary disease with acute lower respiratory infection (10) HTN (hypertension) Qualifiers: Hypertension type: essential hypertension Qualified Code(s): I10 - Essential (primary) hypertension (11) Anemia Qualifiers: Other causes of anemia: other cause, not classified Qualified Code(s): D64.89 - Other specified anemias
[2018-05-12] MEDS ORDERED: Aminoglycoside Consult 1 EACH MC ONE (08:33)
[2018-05-12] MEDS: predniSONE 20 MG TABLET PO SCH (08:50)
[2018-05-12] MEDS ORDERED: Levofloxacin 750 MG/150 ML 750 MG/150 ML BAG IVPB SCH (09:00)
[2018-05-12] MEDS ORDERED: 0.9 % Sodium Chloride 250 ML ONE (09:13)
--- NOTE | 2018-05-12 10:12 | IR Procedure Note ---
Date of procedure: 05/12/18 Consent Obtained: Verbal consent, Written consent Timeout: Correct patient and procedure verified, Correct site verified, Time out performed, Skin prep completed Local anesthetic: Lidocaine 1% Indications: Left thoracentesis Procedure Performed: Ultrasound guided left thoracentesis Was there an child and youth program assistant present: No Site/Technique: Ultrasound guided left thoracentesis Results/Findings: Large pleural effusion Estimated blood loss (cc): 1 Complications: None; Tolerated procedure well Post Procedure Treatment Plan: CXR pending Specimen: Hemmorhagic pleural effusion
[2018-05-12] MEDS: Budesonide/Formoterol 160/4.5 1 PUFF INH IH SCH ×2 (10:54→21:59)
[2018-05-12 11:52] LABS: Amylase,Pleural Fluid > 2000 Units/L (No Ref Range); Glucose,Pleural Fluid 16 mg/dL (No Ref Range); LDH,Pleural Fluid > 1200 Units/L (No Ref Range); Total Protein,Pleural Fluid 9.3 g/dL (No Ref Range)
[2018-05-12 12:09] LABS: RBC,Pleural Fluid 1.061 M/mcL
--- NOTE | 2018-05-12 12:26 | Event Note ---
Date of Encounter: 05/12/18 Time of Encounter: 12:[address] Davidson of the interventional radiology. Thoracentesis was attempted with 400 mL of thick hemorrhagic fluid there was noted multiple septations making evacuation of the pleural space very difficult given these findings I am recommending formal evaluation with thoracic surgery for further management as I doubt the utility of small bore chest tube placement and even less role for Pleurx catheter at this time. I have placed a consult and updated the thoracic surgeon who is kindly agreed to see the patient (likely early tomorrow AM). I will follow-up on pleural fluid studies
[2018-05-12 14:46] LABS: Appearance of Pleural Fl Bloody (Clear); Lymphocytes,Pleural Fluid 39.2 %
--- NOTE | 2018-05-12 15:25 | Electrocardiograph Report ---
[address] [place], [place] [address] Test Date: 2018-05-11 Pat Name: Luis Miller Department: [id number] Room: 2N14 Gender: M Grant Administrator: : [id number] Requested By: Naresh Mustafa Order Number: [id number] Reading MD: Andrez Shields Measurements Intervals [place] Rate: 90 P: ME: QRS: 65 QRSD: 85 T: 136 QT: 358 QTc: 438 Interpretive Statements SINUS RHYTHM POSSIBLE ANTERIOR INFARCT, AGE UNDETERMINED LATERAL ST-T CHANGES, CONSIDER ISCHEMIA Electronically Signed On 05-12-2018 15:24:15 EST by Andrez Shields
[2018-05-12 16:59] LABS: Hematocrit 26.5 % (37.5-50.1)
[2018-05-12] MEDS ORDERED: MetroNIDAZOLE 500 MG/100 ML 500 MG/100 ML BAG IVPB SCH (17:00)
[2018-05-12 17:01] LABS: Hemoglobin 8.4 g/dL (12.9-16.9)
[2018-05-12] MEDS: Fluticasone/Vilanterol [Breo Ellipta 100-25 Mcg Inh IH SCH (17:30)
[2018-05-12] MEDS: Azithromycin 500 MG in D5% in Water 250 ML IVPB SCH (23:58)
--- NOTE | 2018-05-13 06:49 | Pulmonology Progress Note ---
Date of Encounter: 05/13/18 Time of Encounter: 06:49 Assessment and Plan (1) Pleural effusion Current Visit: Yes Status: Acute All characteristics here point towards hemorrhagic malignant effusion which will need surgical evaluation. I spoke directly with the thoracic surgeon Dr Diaz who was evaluated the patient likely will proceed to surgical drainage tomorrow. At this point. There is no evidence of infectious process and if cultures remain negative 48 hours and antibiotics can be stopped safely (2) COPD with acute exacerbation Current Visit: No Status: Acute Short burst of prednisone 40 mg 5 days continue bronchodilators and Symbicort (3) SCLC (small cell lung carcinoma) Current Visit: No Status: Chronic Continue to follow with [facility] he also has a consultation/referral with [facility] (4) Tobacco abuse Current Visit: No Status: Chronic Tobacco cessation counseling given Pulmonary will follow peripherally please call with any questions Subjective Principal diagnosis: Pleural Effusion Interval history: Remains hemodynamically stable. Chest pain has improved to some degree underwent thoracentesis but was only able to aspirate 400 mL of bloody thick fluid with multiple areas of septations. Had one episode of vomiting after he had a heavy meal of pasta which may be irritated his stomach he denies any abdominal pain at present however Objective PUL Vital signs: Last Vital Signs Temp 98.4 F 05/13/18 03:36 Pulse 91 05/13/18 03:36 Resp 16 05/13/18 03:36 BP 97/74 05/13/18 03:36 Pulse Ox 96 05/13/18 03:36 General appearance: no acute distress Eyes: nonicteric ENT: oropharynx moist Effort: normal Auscultation: left: diminished breath sounds, right: clear Cardiovascular: regular rate and rhythm Gastrointestinal: normoactive bowel sounds, soft, non-tender Extremities: no cyanosis, no edema, no clubbing Musculoskeletal: no deformities normal mental status, non-focal exam Results - Laboratory Findings CBC and BMP: 05/12/18 16:26 05/12/18 04:03 PT/INR, D-dimer PT 14.6 Seconds (9.4-12.1) H 05/11/18 10:54 Abnormal lab findings: Abnormal lab results RBC 2.30 M/mcL (4.19-5.50) L 05/12/18 04:03 Hgb 8.4 g/dL (12.9-16.9) L D 05/12/18 16:26 Hct 26.5 % (37.5-50.1) L 05/12/18 16:26 MCHC 30.9 g/dL (31.6-35.5) L 05/12/18 04:03 RDW 15.9 % (11.5-14.5) H 05/12/18 04:03 Lymphocytes # 0.4 K/mcL (0.6-4.6) L 05/12/18 04:03 PT 14.6 Seconds (9.4-12.1) H 05/11/18 10:54 Chloride 108 mEq/L (98-107) H 05/12/18 04:03 Carbon Dioxide 21 mEq/L (23-29) L 05/12/18 04:03 BUN 25 mg/dL (6-20) H 05/12/18 04:03 POC Glucose 221 mg/dL (70-99) H 05/12/18 20:26 Calcium 8.2 mg/dL (8.6-10.3) L 05/12/18 04:03 Alkaline Phosphatase 113 Units/L (34-104) H 05/12/18 04:03 Serum Total Protein 6.1 g/dL (6.4-8.9) L 05/12/18 04:03 Albumin 2.8 g/dL (3.5-5.7) L 05/12/18 04:03 Albumin/Globulin Ratio 0.8 (1.1-2.2) L 05/12/18 04:03 Pleural Appearance Bloody (Clear) A 05/12/18 10:20 Pleural RBC 1.061 M/mcL (0.000-0.002) H 05/12/18 10:20 Pleural Tot Nuc Cell 1181 TNC/mcL (0-1000) H 05/12/18 10:20 Vancomycin Trough 24 mcg/mL (5-10) H 05/13/18 04:30 - Microbiology Findings Microbiology Findings: Microbiology, Last 48 Hours 05/12/18 10:20 Body Fluid Culture - Preliminary Pleural Fluid 05/11/18 11:14 Blood Culture - Preliminary Peripheral Venipuncture Culture is incubating and being continuously monitored for growth. Final report to follow. 05/11/18 11:05 Blood Culture - Preliminary Peripheral Venipuncture Culture is incubating and being continuously monitored for growth. Final report to follow. - Clinical Findings Intake & Output: Intake & Output 05/12/18 05/12/18 05/13/18 15:59 23:59 07:59 Intake Total 807 / 807 460 / 460 Output Total 300 / 300 100 / 100 150 / 150 Balance 507 / 507 360 / 360 -150 / -150 Weight 77.4 kg Consult Discharge Plan - Plan Referrals: Mohini Gaytan [Primary Care Provider] - (sent web request on 05-12-18 @ 1016)
[2018-05-13] MEDS: *HR* HYDROcodone/Acet 10/325 mg TABLET PO PRN ×3 (07:23→22:47)
[2018-05-13] MEDS: Finasteride 5 MG TABLET PO SCH (07:23)
[2018-05-13] MEDS: predniSONE 20 MG TABLET PO SCH (07:24)
[2018-05-13] MEDS: Nicotine 14 MG PATCH.TD24 TD SCH (07:24)
[2018-05-13] MEDS: Fluticasone/Vilanterol [Breo Ellipta 100-25 Mcg Inh IH SCH (07:25)
[2018-05-13] MEDS: Budesonide/Formoterol 160/4.5 1 PUFF INH IH SCH ×2 (07:36→19:53)
--- NOTE | 2018-05-13 08:15 | Cardiothoracic Consult Note ---
Date of Encounter: 05/13/18 Time of Encounter: 16:00 Assessment and Plan (1) Malignant neoplasm of overlapping sites of left bronchus and lung Current Visit: Yes Status: Acute The assessment and plan as outlined above was discussed with the patient and/or family members who expressed understanding and agreement. All questions were answered. (2) Malignant pleural effusion Current Visit: Yes Status: Acute all risks and benefits of surgery explained: bleeding, tx, infxn, dvt, mi, cva, . [facility] home care for the pleurx catheter. (3) Essential hypertension Current Visit: Yes Status: Chronic stable with current therapy (4) Anemia associated with chemotherapy Current Visit: Yes Status: Acute Type and cross for surgery - History of Present Illness Consult date: 05/12/18 Requesting physician: Esau Sagastume Consult reason: malignant pleural effusion Chief complaint: SOB History of present illness: Mr. 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 He completed kotlik doublet and then developed cerebral metastasis which were treated with radiation therapy. He subsequently developed oligometastic disease and is now on immunotherapy. He presents with near opacification of the left hemithorax associated with cough and RDZ which is slightly relieved with thoracentesis. 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, 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, 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 - Family History Father History Unknown: Yes Living Status: Hx Family Respiratory Disorders: Yes (Emphysema) Hx Family Neurologic Disorders: Yes (Stroke) - Additional Family History Additional family history: dm Medications and Allergies Aspirin 325 mg PO DAILY 11/28/16 [History] Finasteride [Proscar] 5 mg PO DAILY 11/28/16 [History] Fluticasone Propionate Nasal [Flonase] 1 spray NS BID 11/28/16 [History] Hydroxychloroquine [Plaquenuil] 200 mg PO DAILY 11/28/16 [History] Simvastatin [Zocor] 20 mg PO HS 11/28/16 [History] Fluticasone/Vilanterol [Breo Ellipta 100-25 Mcg INH] 1 puff IH DAILY 12/14/16 [History] Allopurinol [Zyloprim 300 MG] 300 mg PO HS #30 tablet 12/20/16 [Rx] Leflunomide 20 mg PO DAILY 03/26/18 [History] Magic Mouthwash [Magic Mouthwash BLM] 10 ml PO QID PRN #240 ml 05/01/18 [Rx] Allergy/AdvReac Type Severity Reaction Status Date / Time Penicillins Allergy Difficulty Verified 05/01/18 10:38 Swallowing All Systems Review: The remainder of the systems were reviewed and are negative - Constitutional Constitutional: fatigue, weight gain, weight loss - EENT Nose, mouth and throat: dysphagia, odynophagia - Cardiovascular Cardiovascular: dyspnea on exertion - Respiratory Respiratory: cough, dyspnea - Integumentary Integumentary: rash Physical Examination Vital Signs, Last 4 Hours Temp Pulse Resp BP Pulse Ox 05/13/18 07:39 88 05/13/18 07:37 97.6 F 83 17 108/68 96 05/13/18 07:36 16 98 General: Conversant, No Apparent Distress, Well developed, Well nourished HEENT: Atraumatic, Normocephaly, Trachea midline Neck: No JVD, Other (no thyroid masses or cervical or supraclavicular adenopathy) Cardiac: Reg Rate and Rhythm, Normal S1 and S2, No Murmur Lungs: Other (cta throughout the right. markedly decreased throughout the left) Neuro: Alert and responsive, No focal deficits noted, Cranial nerves intact Vascular: Normal capillary refill, Other (2+ palpable upper and lower extremity pulses) Abdomen: Soft, Non-tender, Other (no peritoneal signs, bs present) Skin: Other (hemosiderine changes bilateral pretibial area) Musculoskeletal: Other (5/5 mm strength and range of motion ) Extremities: No Clubbing, No Cyanosis, No Edema Results 05/12/18 16:26 05/12/18 04:03 Lab Results, Last 24 hours 05/12/18 16:26 Hgb 8.4 L D Hct 26.5 L Consult Discharge Plan - Plan Referrals: Mohini Gaytan [Primary Care Provider] - (sent web request on 05-12-18 @ [phone])
--- NOTE | 2018-05-13 08:27 | Cardiothoracic Progress Note ---
Date of Encounter: 05/13/18 Time of Encounter: 08:25 - Assessment and plan (1) Malignant neoplasm of overlapping sites of left bronchus and lung Current Visit: Yes Status: Acute I have offered and Mrs. Miller bronchoscopy, left thoracoscopy and possible pleurx catheter insertion. If the lung does not completely reexpand after removing the loculated malignant pleural effusion, talc pleurodesis would not be indicated but pleurx catheter would be indicated. Complete preop orders today. (2) Malignant pleural effusion Current Visit: Yes Status: Acute all risks and benefits of surgery explained: bleeding, tx, infxn, dvt, mi, cva, . [employer] home care for the pleurx catheter. (3) Essential hypertension Current Visit: Yes Status: Chronic stable with current therapy (4) Anemia associated with chemotherapy Current Visit: Yes Status: Acute Type and cross for surgery - Subjective Interval history: new nausea and emesis x 1 last night. feels better this morning Vital Signs, Last 4 Hours Temp Pulse Resp BP Pulse Ox 05/13/18 07:39 88 05/13/18 07:37 97.6 F 83 17 108/68 96 05/13/18 07:36 16 98 Clinical Data, last 8 Hours Output, Urine Amount 150 Weight 05/11/18 05/12/18 05/13/18 23:59 23:59 23:59 Weight 82.1 kg 76.7 kg 77.4 kg - Physical Examination General: Conversant, No Apparent Distress HEENT: Atraumatic, Normocephaly Cardiac: Reg Rate and Rhythm, Normal S1 and S2, No Murmur Lungs: Other (cta on the right, markedly decreased on the left. ) Neuro: Alert and responsive, No focal deficits noted, Cranial nerves intact Extremities: No Edema, Normal Pulses - Labs 05/12/18 16:26 05/12/18 04:03 Lab Results, Last 24 hours 05/12/18 16:26 Hgb 8.4 L D Hct 26.5 L Consult Discharge Plan - Plan Referrals: Mohini Gaytan [Primary Care Provider] - (sent web request on 05-12-18 @ [phone])
--- NOTE | 2018-05-13 08:51 | Internal Med Progress Note ---
Addendum entered and electronically signed by Sandro Vasquez 05/16/18 15:59: Original Note: <Sandro Vasquez - Last Filed: 05/13/18 13:58> Hospitalist Progress Note - Encounter Date of Encounter: 05/13/18 - Exam Vitals: Temp Pulse Resp BP Pulse Ox 97.9 F 90 17 111/71 95 05/13/18 11:00 05/13/18 11:00 05/13/18 11:00 05/13/18 11:00 05/13/18 11:00 - Time Spent with Patient Total time spent is greater than 50% in coordination of care (as documented) at patient's floor/unit and/or counseling patient: Internal Medicine: Result - Labs CBC & Chem 7: 05/13/18 10:33 05/13/18 10:33 Labs: Short CBC 05/12/18 05/13/18 Range/Units 16:26 10:33 WBC 6.6 (4.3-11.1) K/mcL Hgb 8.4 L D 7.8 L (12.9-16.9) g/dL Hct 26.5 L 24.0 L (37.5-50.1) % Plt Count 209 (140-400) K/mcL Neutrophils # 6.2 (1.6-8.9) K/mcL BMP 05/13/18 10:33 Sodium 138 Potassium 4.1 Chloride 107 Carbon Dioxide 23 BUN 29 H Creatinine 1.24 Glucose 191 H Calcium 8.7 Liver Function 05/13/18 Range/Units 10:33 Total Bilirubin 0.5 (0.3-1.0) mg/dL AST 59 H (13-39) Units/L ALT 62 H (7-52) Units/L Alkaline Phosphatase 128 H (34-104) Units/L Albumin 2.8 L (3.5-5.7) g/dL - ABG Interpretation ABG results: PT/INR, D-dimer PT 17.3 Seconds (9.4-12.1) H 05/13/18 10:33 - Impressions Impressions Thoracentesis 05/12/18 07:27 IMPRESSION: Ultrasound-guided left thoracentesis, yielding 400 ml of hemorrhagic pleural effusion. The majority of the fluid could not be drained percutaneously as the effusion is hemorrhagic and contains multiple loculations. The case was discussed with pulmonology. The patient likely needs either surgical pleurodesis versus a chest tube with fibrinolysis for improvement or resolution of the effusion given the viscosity. D/ / 05/12/2018 11:45:18 Syd Stephenson MD / ha Interpreting Provider: Syd Stephenson MD Consult Discharge Plan - Plan Referrals: Marc Medina DO [Resident] - 05/23/18 11:00 am <Diego Fox - Last Filed: 05/13/18 16:11> Hospitalist Progress Note - Encounter Date of Encounter: 05/13/18 Time of Encounter: 08:30 - Subjective Interval History: Mr. Miller is a 58 year old male with an 88 pack year smoking history who was admitted to [facility] on 05/11/2018 for CP/SOB due to LEFT pleural effusion. 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 Patient with 3 past IR drainage procedures for LEFT pleural effusion, with 2 procedures completed within the past 2 weeks. Last drainage being performed yesterday. Patient says his SOB/dyspnea has resolved since his last procedure. He denies hemoptysis. He does still have chest pain when he takes in a deep breath which radiates to his right shoulder but it is nothing like what it was before the procedure. Cytology evaluation of drainage revealed no evidence of infection. Patient d/c vanc, levaquin, flagyl and started on Azithromycin by Pulmonology for potential COPD exacerbation. He is coughing up brown/greenish phlegm. He denies increased fatigue beyond baseline. Patient currently alert and oriented, conversational and speaking in complete sentences, pleasant and answering questions appropriately. Patient denies RAMOS, dizziness, lightheadedness, difficulty with ambulation, sore throat, dysphagia, SOB/chest pain, n/v, numbness/paresthesias, rash. - Exam Vitals: Temp Pulse Resp BP Pulse Ox 97.6 F 88 17 108/68 96 05/13/18 07:37 05/13/18 07:39 05/13/18 07:37 05/13/18 07:37 05/13/18 07:37 Exam: Constitutional: Vitals as noted. Conversant. Mild respiratory Distress. Eyes : Sclera white, conjunctiva pale, no lid lag, PEARLA. ENT : Grossly normal hearing. Oropharyngeal exam unremarkable. Moist mucus membranes. JVD present, no thyromegaly or mass. Respiratory : Right lung clear to auscultation.. Decreased air entry on Lt base and mid lung field. some air entry at apex. mild rales at left lung base. no accessory muscle use, rhonchi, or wheezes Cardiovascular : Regular rate, rhythm, +S1, +S2. no murmur, gallop, rubs. No chest wall tenderness GI/Abdominal : Soft, Non-tender, Non-distended, normal bowel sounds, soft, no peritoneal signs. no orgenomegaly or mass appreciated. no hernia. Musculoskeletal: no deformity noted. no edema or cyanosis. warm extremities, pulses palpable and symmetrical in UE/LE. no calf tenderness. Neurological: AO X3, CN II-XII grossly intact, grossly normal motor and sensory exam. Skin: hyperpigmentation from healed wound on both LE shins Extremities: fingernails pale. - Assessment and Plan (1) Malignant pleural effusion Current Visit: Yes Status: Acute Assessment and Plan: bronchoscopy, left thoroscopy, possible pleurx catheter insertion planned for tomorrow morning. terminal supervisor home care for pleurx catheter. (2) Anemia associated with chemotherapy Current Visit: Yes Status: Acute Assessment and Plan: Type and cross for surgery Continue to monitor with serial CBC. Hgb 7.8 05/13 (3) COPD exacerbation Current Visit: Yes Status: Acute Assessment and Plan: Continue Symbicort and Predisone, started Azithromycin 500 mg yesterday. Continue to monitor cough, sputum production, and dyspnea. (4) HTN (hypertension) Current Visit: Yes Status: Acute Assessment and Plan: Not taking any home medication as it corrected after he lost significant weight - Monitor for now (5) SCLC (small cell lung carcinoma) Current Visit: Yes Status: Acute Assessment and Plan: Continue to follow with [facility] he also has a consultation/referral with [facility] (6) Type 2 diabetes mellitus Current Visit: Yes Status: Acute Assessment and Plan: Patient not on any medication at home - Monitor Accu-Cheks - Summary of Assessment and Plan Summary of Assessment and Plan: Pleural effusion - Patient with large loculated pleural effusion on the left - Patient without white count or fevers. - Appearance of effusion exactly similar to his previous scan done on 04/30/18. - Likely malignant effusion. However infectious etiology still possibility - Patient currently hemodynamically stable. - Continue empiric antibiotics for now with vancomycin, Levaquin and metronidazole. Likely will discontinue if pleural fluid without suspicious of infectious cause. - Plan for IR guided drainage today. - Pulmonology recommendation appreciated.. COPD exacerbation - Started on Symbicort and short course of prednisone - Will switch antibiotics to azithromycin depending on pleural fluid testing. CKD - Patient with likely history of CKD possibly from previous kidney injury from tumor lysis - Monitor closely given patient on vancomycin. vancomycin to be dosed by pharmacy with drug monitoring. Type 2 diabetes mellitus - Patient not on any medication at home - Monitor Accu-Cheks Acute on chronic respiratory failure with hypoxemia - Likely due to effusion on baseline lung cancer as well as COPD - Management as above h/o HTN - Not taking any home medication as it corrected after he lost significant weight - Monitor for now Anemia - Appears to be chronic - Likely cancer from hemorrhagic effusion and chemotherapy - Hb dropped today. Will transfuse 1 PRBC. - Time Spent with Patient Total time spent is greater than 50% in coordination of care (as documented) at patient's floor/unit and/or counseling patient: Internal Medicine: Result - Labs CBC & Chem 7: 05/13/18 10:33 05/13/18 10:33 Labs: Short CBC 05/12/18 Range/Units 16:26 Hgb 8.4 L D (12.9-16.9) g/dL Hct 26.5 L (37.5-50.1) % - ABG Interpretation ABG results: PT/INR, D-dimer PT 14.6 Seconds (9.4-12.1) H 05/11/18 10:54 - Impressions Impressions Thoracentesis 05/12/18 07:27 IMPRESSION: Ultrasound-guided left thoracentesis, yielding 400 ml of hemorrhagic pleural effusion. The majority of the fluid could not be drained percutaneously as the effusion is hemorrhagic and contains multiple loculations. The case was discussed with pulmonology. The patient likely needs either surgical pleurodesis versus a chest tube with fibrinolysis for improvement or resolution of the effusion given the viscosity. D/ / 05/12/2018 11:45:18 Syd Stephenson MD / ha Interpreting Provider: Syd Stephenson MD Chest X-Ray 05/12/18 10:13 IMPRESSION: Opacification of the left hemithorax with sparing of the left lung apex, likely related to large pleural, mildly improved. No definite pneumothorax. D/ / Samm Wood MD / Samm Wood MD Interpreting Provider: Samm Wood MD <Gus Mazariegos - Last Filed: 05/13/18 16:28> Hospitalist Progress Note - Encounter Date of Encounter: 05/13/18 - Exam Vitals: Temp Pulse Resp BP Pulse Ox 97.9 F 90 17 111/71 95 05/13/18 11:00 05/13/18 11:00 05/13/18 11:00 05/13/18 11:00 05/13/18 11:00 - Assessment and Plan (1) Mass of left lung Current Visit: No Status: Acute (2) Shortness of breath Current Visit: No Status: Acute (3) Type 2 diabetes mellitus Current Visit: No Status: Chronic (4) COPD (chronic obstructive pulmonary disease) Current Visit: No Status: Acute (5) Tobacco abuse Current Visit: No Status: Chronic (6) Acute on chronic respiratory failure with hypoxemia Current Visit: No Status: Ruled-out (7) CKD (chronic kidney disease) stage 3, GFR 30-59 ml/min Current Visit: No Status: Chronic (8) Pleural effusion Current Visit: Yes Status: Acute (9) HTN (hypertension) Current Visit: Yes Status: Acute (10) Anemia Current Visit: Yes Status: Acute (11) SCLC (small cell lung carcinoma) Current Visit: Yes Status: Acute (12) Rheumatoid arthritis Current Visit: No Status: Chronic - Time Spent with Patient Total time spent is greater than 50% in coordination of care (as documented) at patient's floor/unit and/or counseling patient: Internal Medicine: Result - Labs CBC & Chem 7: 05/13/18 10:33 05/13/18 10:33 Labs: Short CBC 05/12/18 05/13/18 Range/Units 16:26 10:33 WBC 6.6 (4.3-11.1) K/mcL Hgb 8.4 L D 7.8 L (12.9-16.9) g/dL Hct 26.5 L 24.0 L (37.5-50.1) % Plt Count 209 (140-400) K/mcL Neutrophils # 6.2 (1.6-8.9) K/mcL BMP 05/13/18 10:33 Sodium 138 Potassium 4.1 Chloride 107 Carbon Dioxide 23 BUN 29 H Creatinine 1.24 Glucose 191 H Calcium 8.7 Liver Function 05/13/18 Range/Units 10:33 Total Bilirubin 0.5 (0.3-1.0) mg/dL AST 59 H (13-39) Units/L ALT 62 H (7-52) Units/L Alkaline Phosphatase 128 H (34-104) Units/L Albumin 2.8 L (3.5-5.7) g/dL - ABG Interpretation ABG results: PT/INR, D-dimer PT 17.3 Seconds (9.4-12.1) H 05/13/18 10:33 - Attending Attestation The history, physical exam, and medical decision making was performed by the medical student either while I was physically present and actively involved or I personally re-performed the exam and medical decision making. I have verified the accuracy of the medical student's documentation with regards to the history, physical exam findings, and medical decision making on 05/13/18. Mr Miller is currently admitted for L pleural effusion s/p recurrent thoracentesis. He remains moderate to high risk due to potential for worsening clinical status. Mr Miller is resting comfortably at this time. His daughter is visiting. No fever or chills. Having runs of VT - asymptomatic. No CP. Breathing seems better after thoracentesis yesterday. Exam alert Comfortable lying in bed Mucus membranes dry Heart reg and not tachy Diminished breath sounds Abd nontender No edema Moves all extremities I/P 1. L pleural effusion - plan for CTS tomorrow. 2. Lung cancer metastatic 3. VT - check electrolytes. 4. HTN - controlled 5. Remains on room air with no hypoxia. 6. Tobacco abuse - cessation advised Further diagnoses and plan as above. <Diego Fox A - Last Filed: 05/13/18 16:11> (4) HTN (hypertension) Qualifiers: Hypertension type: essential hypertension Qualified Code(s): I10 - Essential (primary) hypertension <Gus Mazariegos A - Last Filed: 05/13/18 16:28> (3) Type 2 diabetes mellitus Qualifiers: Diabetes mellitus prison insulin use: with prison use Diabetes mellitus complication status: without complication Qualified Code(s): E11.9 - Type 2 diabetes mellitus without complications; Z79.4 - retirement (current) use of insulin (4) COPD (chronic obstructive pulmonary disease) Qualifiers: COPD type: COPD with acute lower respiratory infection Qualified Code(s): J44.0 - Chronic obstructive pulmonary disease with acute lower respiratory infection (9) HTN (hypertension) Qualifiers: Hypertension type: essential hypertension Qualified Code(s): I10 - Essential (primary) hypertension (10) Anemia Qualifiers: Other causes of anemia: chronic disease, neoplastic Qualified Code(s): 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
--- NOTE | 2018-05-13 09:53 | Internal Med Progress Note ---
Hospitalist Progress Note - Encounter Date of Encounter: 05/13/18 Time of Encounter: 09:46 - Subjective Interval History: 58 year old male with an 88 pack year smoking history, admitted to [facility] on 05/11/2018 for CP/SOB due to LEFT pleural effusion. 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 Patient with 3 past IR drainage procedures for LEFT pleural effusion, with 2 procedures completed within the past 2 weeks. Last drainage being performed yesterday. Patient states CP and SOB completely resolved post procedure. Cytology evaluation of drainage revealed no evidence of infection. Patient d/c vanc, levaquin, flagyl and started on Azithromycin by Pulmonology for potential COPD exacerbation. Patient currently alert and oriented, conversational and speaking in complete sentences, pleasant and answering questions appropriately. Patient denies RAMOS, dizziness, lightheadedness, difficulty with ambulation, sore throat, dysphagia, no CP/SOB, patient - Exam Vitals: Temp Pulse Resp BP Pulse Ox 97.6 F 88 17 108/68 96 05/13/18 07:37 05/13/18 07:39 05/13/18 07:37 05/13/18 07:37 05/13/18 07:37 - Time Spent with Patient Total time spent is greater than 50% in coordination of care (as documented) at patient's floor/unit and/or counseling patient: Internal Medicine: Result - Labs CBC & Chem 7: 05/12/18 16:26 05/12/18 04:03 Labs: Short CBC 05/12/18 Range/Units 16:26 Hgb 8.4 L D (12.9-16.9) g/dL Hct 26.5 L (37.5-50.1) % - ABG Interpretation ABG results: PT/INR, D-dimer PT 14.6 Seconds (9.4-12.1) H 05/11/18 10:54 - Impressions Impressions Thoracentesis 05/12/18 07:27 IMPRESSION: Ultrasound-guided left thoracentesis, yielding 400 ml of hemorrhagic pleural effusion. The majority of the fluid could not be drained percutaneously as the effusion is hemorrhagic and contains multiple loculations. The case was discussed with pulmonology. The patient likely needs either surgical pleurodesis versus a chest tube with fibrinolysis for improvement or resolution of the effusion given the viscosity. D/ / 05/12/2018 11:45:18 Syd Stephenson MD / ha Interpreting Provider: Syd Stephenson MD Chest X-Ray 05/12/18 10:13 IMPRESSION: Opacification of the left hemithorax with sparing of the left lung apex, likely related to large pleural, mildly improved. No definite pneumothorax. D/ / Samm Wood MD / Samm Wood MD Interpreting Provider: Samm Wood MD Consult Discharge Plan - Plan Referrals: Marc Medina DO [Resident] - 05/23/18 11:00 am
[2018-05-13 10:44] LABS: Basophils % 0.2 %; Hemoglobin 7.8 g/dL (12.9-16.9); Immature Granulocytes % 0.5 % (0-4); Lymphocytes # 0.2 K/mcL (0.6-4.6); Lymphocytes % 2.7 %; Mean Corpuscular HGB Conc 32.5 g/dL (31.6-35.5); Mean Corpuscular Hemoglobin 29.4 pg (28.0-33.3); Mean Corpuscular Volume 90.6 fL (83.0-100.0); Mean Platelet Volume 9.7 fL (9.4-12.4); Monocytes # 0.1 K/mcL (0.0-1.3); Platelet Count 209 K/mcL (140-400); Red Blood Count 2.65 M/mcL (4.19-5.50); Red Cell Distribution Width 16.2 % (11.5-14.5); Segmented Neutrophils % 94.6 %
[2018-05-13 10:52] LABS: INR 1.5; Neutrophils # 6.2 K/mcL (1.6-8.9); Platelet Estimate Normal (Normal); Prothrombin Time 17.3 Seconds (9.4-12.1)
[2018-05-13 11:04] LABS: Alanine Aminotransferase 62 Units/L (7-52); Albumin 2.8 g/dL (3.5-5.7); Albumin/Globulin Ratio 0.8 (1.1-2.2); Alkaline Phosphatase 128 Units/L (34-104); Aspartate Amino Transferase 59 Units/L (13-39); BUN/Creatinine Ratio 23 (6-26); Bilirubin,Total 0.5 mg/dL (0.3-1.0); Blood Urea Nitrogen 29 mg/dL (6-20); Calcium 8.7 mg/dL (8.6-10.3); Carbon Dioxide 23 mEq/L (23-29); Chloride 107 mEq/L (98-107); Globulin 3.6 g/dL (2.4-3.5); Glucose 191 mg/dL (70-105); Osmolality,Calculated 297 (280-300); Potassium 4.1 mEq/L (3.5-5.1); Sodium 138 mEq/L (136-145); Total Protein 6.4 g/dL (6.4-8.9); eGFR For Non-African Americans 60 (> 60)
--- NOTE | 2018-05-13 17:50 | Anesthesia Evaluation PreOp ---
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 Other Medical History: Diabetes Type II, GERD Anesthesia History: No Prior Anesthetic Complications, Past Anesthesia (previous grade 1 view, rotator cuff R, carpal tunnel surgery, multiple rectal/perianal fistulotomies and sphincterotomy) Alcohol Use: none Drug use: none Medications and Allergies Aspirin 325 mg PO DAILY 11/28/16 [History] Finasteride [Proscar] 5 mg PO DAILY 11/28/16 [History] Fluticasone Propionate Nasal [Flonase] 1 spray NS BID 11/28/16 [History] Hydroxychloroquine [Plaquenuil] 200 mg PO DAILY 11/28/16 [History] Simvastatin [Zocor] 20 mg PO HS 11/28/16 [History] Fluticasone/Vilanterol [Breo Ellipta 100-25 Mcg INH] 1 puff IH DAILY 12/14/16 [History] Allopurinol [Zyloprim 300 MG] 300 mg PO HS #30 tablet 12/20/16 [Rx] Leflunomide 20 mg PO DAILY 03/26/18 [History] Magic Mouthwash [Magic Mouthwash BLM] 10 ml PO QID PRN #240 ml 05/01/18 [Rx] Allergy/AdvReac Type Severity Reaction Status Date / Time Penicillins Allergy Difficulty Verified 05/01/18 10:38 Swallowing - Meds/Allergy Pre-op Review Medications Reviewed: Yes Allergies Reviewed: Yes Beta Blockers on Current Med List: No Anesthesia Results - Labs 05/13/18 10:33 05/13/18 10:33 Laboratory Tests 05/11/18 05/13/18 10:54 10:33 PT 17.3 H INR 1.5 APTT 35.9 - Imaging EKG: report reviewed (SINUS RHYTHM POSSIBLE ANTERIOR INFARCT, AGE UNDETERMINED LATERAL ST-T CHANGES, CONSIDER ISCHEMIA) Chest x-ray: report reviewed (Opacification of the left hemithorax with sparing of the left lung apex, likely related to large pleural, mildly improved. No definite pneumothorax) Additional studies: 11/2016 Impressions: Technically sub-optimal due to poor echocardiographic windows. Moderately dilated left ventricle. Mild LV systolic dysfunction, LVEF 40-45%. There is global LV hypokinesis. Right ventricle was not well visualized. It appears borderline dilated with mild hypokinesis based on limited views. Unable to estimate RVSP due to lack of TR jet. No significant valvular dysfunction. Left Ventricular Wall Motion: Rest Echo Findings The apex, apical inferior, mid inferior, basal inferior, apical anterior, mid anterior, basal anterior, apical septal, mid inferior septal, basal inferior septal, apical lateral, mid anterior lateral, basal anterior lateral, mid anterior septal, mid inferior lateral, basal anterior septal and basal inferior lateral parisi were hypokinetic. Findings: Study Quality * Technically sub-optimal due to poor echocardiographic windows. ECG Findings * Normal sinus rhythm. Left Ventricle * Moderately dilated left ventricle. * Mild LV systolic dysfunction, LVEF 40-45%. There is global LV hypokinesis. * Normal LV wall thickness. * Normal left ventricular diastolic function. Right Ventricle * Right ventricle was not well visualized. It appears borderline dilated with mild hypokinesis based on limited views. Left Atrium * Normal left atrial size. Right Atrium * Normal right atrial size. Aorta * Normally sized aortic root. Pericardium * There is no pericardial effusion present. IVC * The IVC is not well evaluated. Aortic Valve * Aortic valve not well visualized. * No aortic stenosis. * No aortic regurgitation. Mitral Valve * Normal mitral valve structure. * No mitral stenosis. * Trace mitral regurgitation. Tricuspid Valve * Tricuspid valve not well visualized. * No tricuspid stenosis. * No tricuspid regurgitation. * Unable to estimate RVSP due to lack of TR jet. Pulmonic Valve * Pulmonic valve not well visualized. * No pulmonic stenosis. * Trace pulmonic regurgitation. Anesthesia Exam Vital Signs/O2 Sat/Glucose, Most Recent Temp Pulse Resp BP Pulse Ox 98.2 F 89 18 107/68 95 05/13/18 16:44 05/13/18 16:44 05/13/18 16:44 05/13/18 16:44 05/13/18 16:44 Blood Glucose* 211 - HEENT Pupil (Motor): Pupils equal Mallampati: II Oral Opening: Greater than 3 - APPLICATION SECURITY SPECIALIST LOC: Oriented APPLICATION SECURITY SPECIALIST Motor: Normal RUE, Normal LUE, Normal RLE, Normal LLE, Normal Face APPLICATION SECURITY SPECIALIST Sensory: Normal: RUE, LUE, RLE, LLE, Face - Cardiac Rhythm: Regular Murmur: None - Pulmonary Breath Sounds: right Clear (diminished L breath sounds ) Respiratory Effort: Symmetrical Anesthesia Assess/Plan ASA Score: 4 Level of consciousness: Cooperative, Oriented Anesthetic Plan: General Monitoring Plan: Standard Monitors Recovery Plan: PACU
[2018-05-13] MEDS: Azithromycin 500 MG in D5% in Water 250 ML IVPB SCH (21:30)
[2018-05-14] MEDS: Fluticasone/Vilanterol [Breo Ellipta 100-25 Mcg Inh IH SCH (07:06)
[2018-05-14] MEDS: Finasteride 5 MG TABLET PO SCH (07:06)
[2018-05-14] MEDS: predniSONE 20 MG TABLET PO SCH (07:06)
[2018-05-14] MEDS: Nicotine 14 MG PATCH.TD24 TD SCH (07:10)
[2018-05-14 09:15] LABS: Basophils % 0.2 %; Hematocrit 25.7 % (37.5-50.1); Hemoglobin 8.3 g/dL (12.9-16.9); Immature Granulocytes % 0.3 % (0-4); Lymphocytes # 0.6 K/mcL (0.6-4.6); Lymphocytes % 10.2 %; Mean Corpuscular HGB Conc 32.3 g/dL (31.6-35.5); Mean Corpuscular Hemoglobin 29.4 pg (28.0-33.3); Mean Corpuscular Volume 91.1 fL (83.0-100.0); Mean Platelet Volume 9.6 fL (9.4-12.4); Monocytes # 0.4 K/mcL (0.0-1.3); Monocytes % 6.4 %; Neutrophils # 4.8 K/mcL (1.6-8.9); Platelet Count 248 K/mcL (140-400); Red Blood Count 2.82 M/mcL (4.19-5.50); Red Cell Distribution Width 16.2 % (11.5-14.5); Segmented Neutrophils % 82.9 %
[2018-05-14] MEDS ORDERED: KETAMINE HCL 50 MG/ML SYRINGE IV ONE (09:37)
[2018-05-14] MEDS ORDERED: Ondansetron 4 MG/2 ML VIAL ONE (10:38)
[2018-05-14] MEDS ORDERED: *HR* Rocuronium Bromide 50 MG/5 ML VIAL ONE (10:38)
[2018-05-14] MEDS ORDERED: *HR* Propofol 200 MG/20 ML VIAL IVP ONE (10:39)
[2018-05-14] MEDS ORDERED: *HR* FentaNYL (PF) 100 MCG/2 ML VIAL ONE ×2 (10:39→13:01)
[2018-05-14] MEDS ORDERED: *HR* Midazolam HCl 2 MG/2 ML VIAL ONE (10:40)
[2018-05-14] MEDS: Budesonide/Formoterol 160/4.5 1 PUFF INH IH SCH ×2 (10:47→20:43)
[2018-05-14] MEDS ORDERED: TALC (Sterile Pwd) 4 GM VIAL IX ONE ×2 (11:15→13:55)
[2018-05-14] MEDS ORDERED: Gabapentin 300 MG CAPSULE PO ONE ×3 (11:20→13:55)
[2018-05-14] MEDS ORDERED: Celecoxib 100 MG CAPSULE PO ONE (11:20)
[2018-05-14] MEDS ORDERED: Acetaminophen IV 1,000 MG/100 ML INFUS..BTL ONE (11:40)
[2018-05-14] MEDS ORDERED: SUGAMMADEX SODIUM 500 MG/5 ML VIAL IV ONE (12:39)
[2018-05-14] MEDS ORDERED: Dexamethasone 4 MG/ML VIAL ONE (12:54)
--- NOTE | 2018-05-14 13:08 | Internal Med Progress Note ---
<Sandro Vasquez - Last Filed: 05/14/18 15:54> Hospitalist Progress Note - Encounter Date of Encounter: 05/14/18 Time of Encounter: 13:08 - Subjective Interval History: Patient seen and evaluated at bedside. No acute distress. No new complaints Patient states that the pain in his RIGHT shoulder is improved today Patient scheduled for surgery this morning for pleurx tube placement Other ROS negative. - Exam Vitals: Temp Pulse Resp BP Pulse Ox 97.7 F 79 17 108/75 96 05/14/18 07:00 05/14/18 07:00 05/14/18 07:00 05/14/18 07:00 05/14/18 07:00 Exam: Constitutional: Vitals as noted. Conversant. Alert, answering questions appropriately. Eyes : Sclera white, conjunctiva pale, no lid lag, PERRL. ENT : Grossly normal hearing. Oropharyngeal exam unremarkable. Moist mucus membranes. No thyromegaly or mass. Respiratory : Right lung clear to auscultation.. Decreased air entry on Lt base and mid lung field. some air entry at apex. mild rales at left lung base. no accessory muscle use, rhonchi, or wheezes Cardiovascular : Regular rate, rhythm, +S1, +S2. no murmur, gallop, rubs. No chest wall tenderness GI/Abdominal : Soft, Non-tender, Non-distended, normal bowel sounds, soft, no peritoneal signs. no orgenomegaly or mass appreciated. no hernia. Musculoskeletal: no deformity noted. no edema or cyanosis. warm extremities, pulses palpable and symmetrical in UE/LE. no calf tenderness. Neurological: AO X3, CN II-XII grossly intact, grossly normal motor and sensory exam. Skin: hyperpigmentation from healed wound on both LE shins Extremities: fingernails pale. DVT Prophylaxis: Held heparin for surgery - Summary of Assessment and Plan Summary of Assessment and Plan: (1) Malignant pleural effusion Current Visit: Yes Status: Acute Assessment and Plan: bronchoscopy, left thoroscopy, possible pleurx catheter insertion performed today. 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 (2) Anemia associated with chemotherapy Current Visit: Yes Status: Acute Assessment and Plan: Continue to monitor with serial CBC. Hgb 8.3 05/14 (3) COPD exacerbation Current Visit: Yes Status: Acute Assessment and Plan: Continue Symbicort and Predisone, started Azithromycin 500 mg 05/12 Continue to monitor cough, sputum production, and dyspnea. (4) HTN (hypertension) Current Visit: Yes Status: Acute Assessment and Plan: Not taking any home medication as it corrected after he lost significant weight - Monitor for now (5) SCLC (small cell lung carcinoma) Current Visit: Yes Status: Acute Assessment and Plan: Continue to follow with [facility] he also has a consultation/referral with [facility] (6) Type 2 diabetes mellitus Current Visit: Yes Status: Acute Assessment and Plan: Patient not on any medication at home - Monitor Accu-Cheks - Time Spent with Patient Total time spent is greater than 50% in coordination of care (as documented) at patient's floor/unit and/or counseling patient: Internal Medicine: Result - Labs CBC & Chem 7: 05/14/18 08:53 05/13/18 10:33 Labs: Short CBC 05/14/18 Range/Units 08:53 WBC 5.8 (4.3-11.1) K/mcL Hgb 8.3 L (12.9-16.9) g/dL Hct 25.7 L (37.5-50.1) % Plt Count 248 (140-400) K/mcL Neutrophils # 4.8 (1.6-8.9) K/mcL - ABG Interpretation ABG results: PT/INR, D-dimer PT 17.3 Seconds (9.4-12.1) H 05/13/18 10:33 Consult Discharge Plan - Plan Referrals: Marc Medina DO [Resident] - 05/23/18 11:00 am <Gus Mazariegos - Last Filed: 05/14/18 16:24> Hospitalist Progress Note - Encounter Date of Encounter: 05/14/18 - Exam Vitals: Temp Pulse Resp BP Pulse Ox 97.6 F 85 17 106/71 99 05/14/18 14:32 05/14/18 14:32 05/14/18 14:32 05/14/18 14:32 05/14/18 14:32 - Assessment and Plan (1) Mass of left lung Current Visit: No Status: Acute (2) Shortness of breath Current Visit: No Status: Acute (3) Type 2 diabetes mellitus Current Visit: No Status: Chronic (4) COPD (chronic obstructive pulmonary disease) Current Visit: No Status: Acute (5) Tobacco abuse Current Visit: No Status: Chronic (6) Acute on chronic respiratory failure with hypoxemia Current Visit: No Status: Ruled-out (7) CKD (chronic kidney disease) stage 3, GFR 30-59 ml/min Current Visit: No Status: Chronic (8) Pleural effusion Current Visit: Yes Status: Acute (9) HTN (hypertension) Current Visit: Yes Status: Acute (10) Anemia Current Visit: Yes Status: Acute (11) SCLC (small cell lung carcinoma) Current Visit: Yes Status: Chronic (12) Rheumatoid arthritis Current Visit: No Status: Chronic - Time Spent with Patient Total time spent is greater than 50% in coordination of care (as documented) at patient's floor/unit and/or counseling patient: Internal Medicine: Result - Labs CBC & Chem 7: 05/14/18 08:53 05/13/18 10:33 Labs: Short CBC 05/14/18 Range/Units 08:53 WBC 5.8 (4.3-11.1) K/mcL Hgb 8.3 L (12.9-16.9) g/dL Hct 25.7 L (37.5-50.1) % Plt Count 248 (140-400) K/mcL Neutrophils # 4.8 (1.6-8.9) K/mcL - ABG Interpretation ABG results: PT/INR, D-dimer PT 17.3 Seconds (9.4-12.1) H 05/13/18 10:33 - Attending Attestation I examined this patient and my medical decision-making was reviewed with the Resident Physician on 05/14/18. I agree with the documented findings, disposition and treatment plan as described except to the extent set forth below. Mr Miller is currently admitted for recurrent malignant effusion. He is to go to OR today. He remains moderate to high risk due to potential for worsening clinical status. Mr Miller is resting awaiting surgery. No fever or chills. No CP at this time. No GI issues. Hopes surgery will go well. Exam alert Comfortable Mucus membranes dry Heart reg and not tachy Lungs diminished Abs soft I/P 1. Pleural effusion - for OR today. 2. Lung cancer Further diagnoses and plan as above. 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 (4) COPD (chronic obstructive pulmonary disease) Qualifiers: COPD type: COPD with acute lower respiratory infection Qualified Code(s): J44.0 - Chronic obstructive pulmonary disease with acute lower respiratory infection (9) HTN (hypertension) Qualifiers: Hypertension type: essential hypertension Qualified Code(s): I10 - Essential (primary) hypertension (10) Anemia Qualifiers: Other causes of anemia: chronic disease, neoplastic Qualified Code(s): 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
--- NOTE | 2018-05-14 13:51 | Operative Note ---
Date of procedure: 05/14/18 Pre-op diagnosis: overlapping left lung cancer, malignant pleural efffusion Post-op diagnosis: same Procedure: bronchoscopy with aspiration, left vats evacuation of hemothorax, pleurx catheter insertion Anesthesia: MATHEUS Surgeon: Maurizio Jesus Was there an construction administrative assistant present: No Estimated blood loss (cc): 10 Specimen: none Condition: stable Disposition: PACU Procedure in Detail: Patient was brought to the operating room placed on the operating table in the supine position. After undergoing general anesthesia with sequential compressive devices on bilateral lower extremities and perioperative antibiotics onboard, a flexible bronchoscopy with aspiration of the tracheobronchial tree was performed. Copious secretions were aspirated from the tracheobronchial tree until clear. Patient was then placed on the operating table in the right lateral decubitus position with care to pad all pressure points. He was prepped with DuraPrep and draped in usual sterile fashion 3 thoracoscopy ports were placed. A total of 1600 mL of malignant pleural effusion/hemothorax was evacuated from the chest. Anesthesia then performed several Valsalva maneuvers yet lung would not reexpand. The Pleurx catheter was placed. The incisions were closed with 0 Vicryl suture and another layer of 0 Vicryl suture and 4-0 Monocryl subcuticular stitches. Sterile dressings were applied after securing the Pleurx catheter with 2-0 silk suture. Patient was extubated and taken to the recovery room.
[2018-05-14] MEDS ORDERED: Naloxone 0.4 MG/ML INJ IVP PRN (13:55)
[2018-05-14] MEDS ORDERED: Magic Mouthwash 10 ML UD Cup PO PRN (13:55)
[2018-05-14] MEDS ORDERED: Acetaminophen 325 MG TABLET PO PRN (13:55)
[2018-05-14] MEDS ORDERED: Ipratropium/Albuterol Neb 3 ML IH PRN (13:55)
--- NOTE | 2018-05-14 14:18 | Anesthesia Evaluation Post Op ---
Date of Encounter: 05/14/18 Time of Encounter: 14:16 - Vital Signs Vital Signs: Vital Signs/O2 Sat/Glucose, Most Recent Temp Pulse Resp BP Pulse Ox 98.1 F 83 19 108/67 97 05/14/18 13:44 05/14/18 14:04 05/14/18 14:04 05/14/18 14:04 05/14/18 14:04 Blood Glucose* 123 - Lungs Lungs: Clear Ascult./Percussion (Decreased on right with good air eschange noted, O2 sat 98%) - Airway Airway: Non-obstructed - Cardiovascular Regular Rate - Mental Status Mental Status: Alert & Oriented, Answers Appropriately - Pain Pain Scale: 0 Pain Scale used: Numeric (1 - 10) - Nausea Vomiting Nausea Vomiting: Not Present - Hydration Hydration: Ice chips, Has not voided Notes: 05/14/18 14:18 AAOx3,VSS with no complaints - Discharge PostOp Status: Transfer Patient to floor
[2018-05-14] MEDS: *HR* HYDROcodone/Acet 10/325 mg TABLET PO PRN (20:46)
[2018-05-14] MEDS: Fluticasone Propionate Nasal 50 MCG/SPRAY BOTTLE NS SCH (20:51)
[2018-05-14] MEDS ORDERED: Azithromycin 500 MG in D5% in Water 250 ML IVPB SCH (22:00)
[2018-05-15] MEDS: *HR* HYDROcodone/Acet 10/325 mg TABLET PO PRN ×2 (04:44→11:57)
[2018-05-15] MEDS: Fluticasone Propionate Nasal 50 MCG/SPRAY BOTTLE NS SCH (08:08)
--- NOTE | 2018-05-15 08:39 | Cardiothoracic Progress Note ---
Date of Encounter: 05/15/18 Time of Encounter: 08:37 - Assessment and plan (1) Malignant neoplasm of overlapping sites of left bronchus and lung Current Visit: Yes Status: Acute home today. completed home care and placed at nurses station (2) Malignant pleural effusion Current Visit: Yes Status: Acute home today. follow up in 1 month in the office with a chest xray (3) Essential hypertension Current Visit: Yes Status: Chronic stable with current therapy (4) Anemia associated with chemotherapy Current Visit: Yes Status: Acute Type and cross for surgery - Subjective Interval history: feels sore at surgical site, otherwise preop discomfort resolved Vital Signs, Last 4 Hours Temp Pulse Resp BP Pulse Ox 05/15/18 07:57 97.6 F 70 18 113/74 97 Oxgyen Flow Rate Oxygen Flow Rate (LPM) 0 Clinical Data, last 8 Hours Output, Urine Amount 675 Weight 05/13/18 05/14/18 05/15/18 23:59 23:59 23:59 Weight 77.4 kg 77.7 kg 76.1 kg - Physical Examination General: Conversant, No Apparent Distress HEENT: Atraumatic, Normocephaly Cardiac: Reg Rate and Rhythm, Normal S1 and S2, No Murmur Incision: Other (wet) Lungs: Other (cta on the right and only present at the very apex on the left. ) Neuro: Alert and responsive, No focal deficits noted - Labs 05/14/18 08:53 05/13/18 10:33 Lab Results, Last 24 hours 05/14/18 08:53 WBC 5.8 Hgb 8.3 L Hct 25.7 L Plt Count 248 Consult Discharge Plan - Plan Referrals: Marc Medina DO [Resident] - 05/23/18 11:00 am
[2018-05-15] MEDS ORDERED: Finasteride 5 MG TABLET PO SCH (09:00)
[2018-05-15] MEDS ORDERED: Fluticasone/Vilanterol [Breo Ellipta 100-25 Mcg Inh IH SCH (09:00)
[2018-05-15] MEDS ORDERED: Aspirin 325 MG TABLET PO SCH (09:00)
[2018-05-15] MEDS ORDERED: Nicotine 14 MG PATCH.TD24 TD SCH (09:00)
[2018-05-15] MEDS ORDERED: Leflunomide [Leflunomide] 20 MG PO SCH (09:00)
[2018-05-15] MEDS ORDERED: predniSONE 20 MG TABLET PO SCH (09:00)
[2018-05-15] MEDS ORDERED: Patient Taking Own Medication 1 EACH IH SCH ×2 (09:00)
[2018-05-15] MEDS: Budesonide/Formoterol 160/4.5 1 PUFF INH IH SCH (10:30)
--- NOTE | 2018-05-15 10:50 | Discharge Summary ---
<Sandro Vasquez - Last Filed: 05/15/18 11:15> - NOTES TO OUTPATIENT PROVIDER Notes to Outpatient Provider: Patient needs to follow up with CT surgery in one month Orders not resulted at time of discharge: Pending orders 05/11/18 11:14 Culture,Blood [BC] Routine 05/12/18 10:20 AFB Culture, Body Fluid [TB] AM 0400 AFB Smear [TB] Routine Culture,Anaerobic [RM] AM 0400 Culture,Body Fluid [RM] AM 0400 05/16/18 08:00 Chest Xray, 1 view [XR chest 1V] [XR] DAILY Date of Encounter: 05/15/18 Time of Encounter: 10:48 - Discharge Diagnosis (1) COPD exacerbation Priority: Primary Status: Acute (2) Malignant pleural effusion Priority: Primary Status: Chronic (3) Type 2 diabetes mellitus Priority: Secondary Status: Chronic Qualifiers: Diabetes mellitus skilled nursing insulin use: unspecified 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 Miller is a 50-year-old male who has a history of SCLC and repetitive left pleural effusions who presented to the emergency department on 05/11 with concern for chest discomfort/SOB. Patient reported that the chest discomfort was on the right upper aspect of his chest, was sharp in nature and worse upon inspiration. The pain did not radiate. Patient admitted to some hemoptysis as well. Chest x-ray revealed near complete opacification of the left hemithorax. Chest CT revealed large partially loculated left-sided pleural effusion with internal nodularity, increased on current examination as compared to prior study of 04/28/2018. Patient was afebrile and WBC count unremarkable. Patient was started on prophylactic Vancomycin, Levaquin, flagyl. Pulmonology was consulted and a diagnostic and therapeutic thoracentesis was performed on 05/12 which yielded 400 ml of hemorrhagic pleural effusion. Patients SOB/chest pain resolved after procedure. Cytology of the drainage revealed no evidence of infection. Patient d/c vanc, levaquin, flagyl and started on Azithromycin by pulmonology for potential COPD exacerbation. Patients chronic anemia from immunotherapy was being monitored and Hgb read 7.8 on 05/13. Patient was given PRBC. Patient, Pulmonology and Cardiothoracic surgery decided on bronchoscopy, left thoroscopy, pleurx catheter insertion as symptomatic treatment for repetitive fluid buildup in pleural space. Surgery was performed on 05/14. A total of 1600 mL of malignant pleural effusion/hemothorax was evacuated from the chest. No surgical/post-operation complications. 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 Follow up in 1 month in the office with a chest x-ray per Cardiothoracic Surgery. Discharge discussed with: patient Time spent discussing smoking cessation with patient: 3 to 10 minutes - Time Spent with Patient Total time spent providing and/or coordinating discharge services: Greater than 30 minutes - Discharge Medications Prescriptions: Docusate [Colace] 100 mg PO BID PRN #60 capsule PRN Reason: Constipation HYDROcodone/Acet 10/325 mg [[place] 10-325 mg] 1 each PO Q6H PRN 5 Days #20 tablet PRN Reason: Severe Pain Home Medications: Aspirin 325 mg PO DAILY 11/28/16 [History] Finasteride [Proscar] 5 mg PO DAILY 11/28/16 [History] Fluticasone Propionate Nasal [Flonase] 1 spray NS BID 11/28/16 [History] Hydroxychloroquine [Plaquenuil] 200 mg PO DAILY 11/28/16 [History] Simvastatin [Zocor] 20 mg PO HS 11/28/16 [History] Fluticasone/Vilanterol [Breo Ellipta 100-25 Mcg INH] 1 puff IH DAILY 12/14/16 [History] Allopurinol [Zyloprim 300 MG] 300 mg PO HS #30 tablet 12/20/16 [Rx] Leflunomide 20 mg PO DAILY 03/26/18 [History] Magic Mouthwash [Magic Mouthwash BLM] 10 ml PO QID PRN #240 ml 05/01/18 [Rx] Docusate [Colace] 100 mg PO BID PRN #60 capsule 05/15/18 [Rx] HYDROcodone/Acet 10/325 mg [[place] 10-325 mg] 1 each PO Q6H PRN 5 Days #20 tablet 05/15/18 [Rx] Allergies/Adverse Reactions: Allergy/AdvReac Type Severity Reaction Status Date / Time Penicillins Allergy Difficulty Verified 05/01/18 10:38 Swallowing Date of admission: 05/11/18 14:24 Primary care physician: Mohini Gaytan Consults: 05/11/18 15:54 Consult to Interventional Radiology [CONS] Routine Consulting Provider: Radiology Interventional Cols Reason for Consult: diagnostic and therapeutic thorocentesis Call Completed: Yes 05/11/18 16:34 Consult to Pulmonology [CONS] Routine Consulting Provider: Pulm Crit Care [facility] Sleep [facility] Reason for Consult: small cell cancer, recurrent Lt pleural effusion, loculated Call Completed: Yes 05/11/18 16:36 Consult to Personal Lines Sales Rep [CONS] Routine Reason for SW Consult: advance directives-patient has terminal cancer 05/12/18 12:26 Consult to Thoracic Surgery [CONS] Routine Consulting Provider: Cardiothoracic Surgery [facility] Reason for Consult: pleural effusion Call Completed: Yes 05/14/18 13:55 Consult to Personal Lines Sales Rep [CONS] Routine Reason for SW Consult: pleurx catheter care Discharging clinician: Sandro Vasquez Anticipated date of discharge: 05/15/18 - Constitutional Vitals: Temp Pulse Resp BP Pulse Ox 97.6 F 70 18 113/74 97 05/15/18 07:57 05/15/18 07:57 05/15/18 07:57 05/15/18 07:57 05/15/18 07:57 General appearance: Present: cooperative, A&O X 3, pleasant, no acute distress, answers questions appropriately Exam: Constitutional: Vitals as noted. Conversant. Alert, answering questions appropriately. Eyes : Sclera white, conjunctiva pale, no lid lag, PERRL. ENT : Grossly normal hearing. Oropharyngeal exam unremarkable. Moist mucus membranes. No thyromegaly or mass. Respiratory : Right lung clear to auscultation.. Decreased air entry on Lt base and mid lung field. some air entry at apex. mild rales at left lung base. no accessory muscle use, rhonchi, or wheezes Cardiovascular : Regular rate, rhythm, +S1, +S2. no murmur, gallop, rubs. No chest wall tenderness GI/Abdominal : Soft, Non-tender, Non-distended, normal bowel sounds, soft, no peritoneal signs. no orgenomegaly or mass appreciated. no hernia. Musculoskeletal: no deformity noted. no edema or cyanosis. warm extremities, pulses palpable and symmetrical in UE/LE. no calf tenderness. Neurological: AO X3, CN II-XII grossly intact, grossly normal motor and sensory exam. Skin: hyperpigmentation from healed wound on both LE shins Extremities: fingernails pale. - Head Head exam: Present: atraumatic, normocephalic - Eye Eye exam: Present: EOMI, normal appearance, PERRL. Absent: scleral icterus Pupils: Present: PERRL - Neck Neck exam general surgery: Present: supple, trachea midline - Respiratory Respiratory exam: Present: decreased breath sounds, rales. Absent: accessory muscle use, prolonged expiratory phase, respiratory distress, rhonchi, stridor, wheezes, tachypnea - Expanded Respiratory Exam Location: decreased breath sounds: Left, Right, rales: Lower, Left - Cardiovascular Cardiovascular exam: Present: RRR, +S1, +S2. Absent: clicks, diastolic murmur, distant heart sounds, JVD, +S3, +S4, systolic murmur - GI/Abdominal GI/Abdominal exam: Present: normal bowel sounds, soft. Absent: distended, firm, guarding, rebound, rigid, tenderness - Extremities Exam Extremities exam: Present: radial pulses palpable and symmetrical. Absent: cyanotic, pedal edema - Neurological Exam Neurological exam: Present: alert, no focal deficits. Absent: facial droop, speech deficit - Psychiatric Psychiatric exam: Present: normal affect, normal mood - Skin Skin exam: Present: dry, intact, normal color, warm. Absent: cyanosis, diaphoretic Additional comments: Skin is clean, intact, dry, warm, non-erythemetous, non-edematous surrounding pleurex catheter surgical site. Area is covered with blood noted on dressing without other exudate. - Patient Status Disposition: Home, Self-Care Condition: Fair Functional capacity at discharge: independent ambulation Overall status at discharge: patient is back to baseline - Discharge Instructions Instructions: Hydrocodone/Acetaminophen (By mouth), Laxative, Stool Softeners (By mouth), Pneumonia (DC) Follow Up With: Marc Medina DO [Resident] - 05/23/18 11:00 am Maurizio Jesus MD [Partnered Physician] - 06/10/18 2:05 pm Forms: ED Satisfaction Letter - Diet and Activity Activity: increase activity as tolerated Diet: advance to your usual diet <Gus Mazariegos Arcenio - Last Filed: 05/15/18 18:35> Orders not resulted at time of discharge: Pending orders 05/11/18 11:14 Culture,Blood [BC] Routine 05/12/18 10:20 AFB Culture, Body Fluid [TB] AM 0400 AFB Smear [TB] Routine Culture,Anaerobic [RM] AM 0400 05/16/18 08:00 Chest Xray, 1 view [XR chest 1V] [XR] DAILY Date of Encounter: 05/15/18 - Discharge Diagnosis (1) Mass of left lung Priority: Secondary Status: Acute (2) Shortness of breath Priority: Secondary Status: Acute (3) Type 2 diabetes mellitus Priority: Secondary Status: Chronic Qualifiers: Diabetes mellitus skilled nursing insulin use: with skilled nursing use Diabetes mellitus complication status: without complication Qualified Code(s): E11.9 - Type 2 diabetes mellitus without complications; Z79.4 - shelter (current) use of insulin (4) COPD (chronic obstructive pulmonary disease) Priority: Secondary Status: Chronic Qualifiers: COPD type: COPD with acute lower respiratory infection Qualified Code(s): J44.0 - Chronic obstructive pulmonary disease with acute lower respiratory infection (5) Tobacco abuse Priority: Secondary Status: Chronic (6) CKD (chronic kidney disease) stage 3, GFR 30-59 ml/min Priority: Secondary Status: Chronic (7) Pleural effusion Priority: Primary Status: Acute (8) HTN (hypertension) Priority: Secondary Status: Chronic Qualifiers: Hypertension type: essential hypertension Qualified Code(s): I10 - Essential (primary) hypertension (9) Anemia Priority: Secondary Status: Chronic Qualifiers: Other causes of anemia: chronic disease, neoplastic Qualified Code(s): D63.0 - Anemia in neoplastic disease (10) SCLC (small cell lung carcinoma) Status: Chronic (11) Rheumatoid arthritis Priority: Secondary Status: Chronic Qualifiers: Rheumatoid arthritis location: unspecified site Rheumatoid factor presence: unspecified presence Qualified Code(s): M06.9 - Rheumatoid arthritis, unspecified Hospital course: Mr. Miller is a 58 year old male - Time Spent with Patient Total time spent providing and/or coordinating discharge services: Date of admission: 05/11/18 14:24 Primary care physician: Mohini Gaytan Consults: 05/11/18 15:54 Consult to Interventional Radiology [CONS] Routine Consulting Provider: Radiology Interventional Cols Reason for Consult: diagnostic and therapeutic thorocentesis Call Completed: Yes 05/11/18 16:34 Consult to Pulmonology [CONS] Routine Consulting Provider: Pulm Crit Care [facility] Reason for Consult: small cell cancer, recurrent Lt pleural effusion, loculated Call Completed: Yes 05/11/18 16:36 Consult to Personal Lines Sales Rep [CONS] Routine Reason for SW Consult: advance directives-patient has terminal cancer 05/12/18 12:26 Consult to Thoracic Surgery [CONS] Routine Consulting Provider: Cardiothoracic Surgery [facility] Reason for Consult: pleural effusion Call Completed: Yes 05/14/18 13:55 Consult to Personal Lines Sales Rep [CONS] Routine Reason for SW Consult: pleurx catheter care - Constitutional Vitals: Temp Pulse Resp BP Pulse Ox 97.7 F 77 18 108/70 96 05/15/18 11:35 05/15/18 11:35 05/15/18 11:35 05/15/18 11:35 05/15/18 11:35 - Attending Attestation I examined this patient and my medical decision-making was reviewed with the Resident Physician on 05/15/18. I agree with the documented findings, disposition and treatment plan as described except to the extent set forth below. Mr Miller has been admitted for L malignant effusion. He has gone to OR and had Pleuryx catheter placed. He feels well today. He is afebrile and ready for discharge home with outpatient follow up. Exam Alert Comfortable and pleasant Mucus membranes dry Heart reg Decreased breath sounds on L No edema Plan D/C home today Follow up with onc and CTS.
[2018-05-15 11:39] VITALS: BP 108/70
--- NOTE | 2018-05-15 11:50 | Physician Discharge Referral ---
<Sandro Vasquez - Last Filed: 05/15/18 11:48> Home Health/Hosp Referral Info Transfer to: Home Health Provider in Charge Post Discharge: PCP - Diagnosis (1) COPD exacerbation Priority: Primary Status: Acute (2) Malignant pleural effusion Priority: Primary Status: Chronic (3) Type 2 diabetes mellitus Priority: Secondary Status: Chronic (4) Essential hypertension Priority: Secondary Status: Chronic (5) SCLC (small cell lung carcinoma) Priority: Primary Status: Chronic (6) Acute kidney injury Priority: Secondary Status: Acute (7) CKD (chronic kidney disease) stage 3, GFR 30-59 ml/min Priority: Secondary Status: Chronic - Respiratory Orders None Smoking Cessation: Smoking cessation has been advised. For more information, call the [employer] Tobacco Quit Line at 7-302-UBBQ-NOW. - Diet/Nutrition Diet/Nutrition Orders: Regular - Activity Activity Orders: Up ad oliverio, Ambulate - Services Needed Following services are medically necessary services: Nursing, Home Health Aide Home Care Orders: Pleurex catheter care - Transfer Medications Prescriptions: RX: Docusate [Colace] 100 mg PO BID PRN #60 capsule PRN Reason: Constipation RX: HYDROcodone/Acet 10/325 mg [[place] 10-325 mg] 1 each PO Q6H PRN 5 Days #20 tablet PRN Reason: Severe Pain Home Medications: RX: Aspirin 325 mg PO DAILY 11/28/16 [History] RX: Finasteride [Proscar] 5 mg PO DAILY 11/28/16 [History] RX: Fluticasone Propionate Nasal [Flonase] 1 spray NS BID 11/28/16 [History] RX: Hydroxychloroquine [Plaquenuil] 200 mg PO DAILY 11/28/16 [History] RX: Simvastatin [Zocor] 20 mg PO HS 11/28/16 [History] RX: Fluticasone/Vilanterol [Breo Ellipta 100-25 Mcg INH] 1 puff IH DAILY 12/14/16 [History] RX: Allopurinol [Zyloprim 300 MG] 300 mg PO HS #30 tablet 12/20/16 [Rx] RX: Leflunomide 20 mg PO DAILY 03/26/18 [History] RX: Magic Mouthwash [Magic Mouthwash BLM] 10 ml PO QID PRN #240 ml 05/01/18 [Rx] RX: Docusate [Colace] 100 mg PO BID PRN #60 capsule 05/15/18 [Rx] RX: HYDROcodone/Acet 10/325 mg [[place] 10-325 mg] 1 each PO Q6H PRN 5 Days #20 tablet 05/15/18 [Rx] Allergies/Adverse Reactions: Allergy/AdvReac Type Severity Reaction Status Date / Time Penicillins Allergy Difficulty Verified 05/01/18 10:38 Swallowing Certification: Further, I certify that my clinical findings support that this patient is homebound (i.e. absences from home require considerable and taxing effort and are for medical reasons or restoration services or infrequently or short duration when for other reasons) because: Homebound Reason: Patient requires assistance of a person or device to safely leave home Attestation: My signature below is to certify that this patient is under my care and that I, or nurse practitioner, or a physician's trade sales assistant working with me, has a [id number] encounter with this patient. <Gus Mazariegos - Last Filed: 05/15/18 12:41> - Diagnosis (1) Mass of left lung Status: Acute (2) Shortness of breath Status: Acute (3) Type 2 diabetes mellitus Status: Chronic (4) COPD (chronic obstructive pulmonary disease) Status: Acute (5) Tobacco abuse Status: Chronic (6) CKD (chronic kidney disease) stage 3, GFR 30-59 ml/min Status: Chronic (7) Pleural effusion Status: Acute (8) HTN (hypertension) Status: Acute (9) Anemia Status: Acute (10) SCLC (small cell lung carcinoma) Status: Chronic (11) Rheumatoid arthritis Status: Chronic - Respiratory Orders Smoking Cessation: Smoking cessation has been advised. For more information, call the [place] Tobacco Quit Line at 6-946-TMDU-NOW. - Dressing/Wound Care Site: Pleurx L chest Certification: Further, I certify that my clinical findings support that this patient is homebound (i.e. absences from home require considerable and taxing effort and are for medical reasons or restoration services or infrequently or short duration when for other reasons) because: Attestation: My signature below is to certify that this patient is under my care and that I, or nurse practitioner, or a physician's trade sales assistant working with me, has a [id number] encounter with this patient.
== END 2018-05-15 14:42 | disposition home or self-care (01) | DRG 167 ==
LOC: EMEROOARM 10:52 → SUATTDRO 14:24 → 2NNU 14:24
PROVIDERS: ADMIT Internal Medicine; ATTEND Internal Medicine

== ENCOUNTER 2018-10-08 10:54 | Inpatient (IN) ==
[2018-10-08] MEDS ORDERED: Ondansetron ODT 4 MG TAB.RAPDIS SL PRN (13:47)
[2018-10-08] MEDS ORDERED: *HR* LORazepam 0.5 MG TABLET PO PRN (13:47)
[2018-10-08] MEDS: *HR* OxyCODONE Immed Rel 5 MG TABLET PO PRN ×3 (14:15→22:51)
--- NOTE | 2018-10-08 14:18 | Pallative History & Physical ---
Date of Encounter: 10/08/18 Time of Encounter: 14:08 Assessment and Plan (1) Mass of chest wall, left Current visit: Yes Status: Acute Surgery consult called for evaluation. [facility] on board, patient may undergo limited work up as approved by [facility]. (2) Hospice care Current visit: Yes Status: Acute (3) Cancer of overlapping sites of left lung Current visit: No Status: Acute Patient is on hospice, all intervention are comfort related. (4) Cancer related pain Current visit: No Status: Acute Worsening pain. Patient will be restarted on home dose of medication, will monitor and titrate as needed. -fentanyl patch 75 mcg, was replaced yesterday morning. -oxycodone 10 mg q4hr prn, pt states he takes the medication every 4 hours, including overnight. -Patient was started on Decadron 2 mg qd at home, will continue for now. (5) Peripheral edema Current visit: No Status: Acute Was started on Lasix 20 mg po at home, will increase to 40 daily for 2 days, then back to 20mg daily. (6) COPD (chronic obstructive pulmonary disease) Current visit: No Status: Chronic Continue home medication. No signs of exacerbation. Qualifiers: COPD type: COPD with acute lower respiratory infection Qualified Code(s): J44.0 - Chronic obstructive pulmonary disease with acute lower respiratory infection Internal Medicine - H&P: HPI Chief complaint: mass in the back and worsening pain Admitted From: Home Plans for Post Hospital Care: Hospice - Home History of present illness: Mr. Miller is a 58 year old male with history of small cell lung cancer, enrolled in [facility] at home, admitted as a GIP for management of worsening pain. Patient is known to palliative service from his last admission. At the time patient was admitted for increased pain and drainage from the chest. Cardiothoracic surgery was called, chest tube was placed and patient had 1 radiation treatment. Patient have since elected for hospice care again, and is now DNRCC. Patient presents now with a fast growing soft tissue mass on the back, under the tip of the left scapula. Mass have been present for a couple of weeks, now the size of a tennis ball, tender, preventing patient from lying on his back or sitting back. Pain medication where increased to fentanyl 75 mcg and oxycodone 10 mg q4hrs. Also started on dexamethasone 2 mg qd. Patient's biggest concern is that the mass will burst open and start draining blood like the previous one. Patient was admitted in [facility] for symptom control and evaluation of mass. Patient at the time of exam was AAOx3, complaining of pain in his back around the mass. Also pain and swelling of his legs. He denies any nausea, vomiting, SOB, chest pain, dysuria. He has intermittent episodes of constipation, controll ed with senna and miralax. Grand niece at the bedside states patient has been having a decline in his appetite and have been sleeping most of the day in the last few weeks. At his baseline, patient lives alone and remains independent with ADLs. Past Med Surg Social Fam HX - Past Medical History Medical history: arthritis, CHF, COPD, diabetes, hypertension, TIA Additional medical history: left overlapping lung cancer Psychiatric history: no psych history - Past Surgical History Surgical History: appendectomy, herniorrhaphy Additional surgical history: Right Shoulder Scope. chest tube placed and removed - Social History Smoking Status: Current every day smoker Smokeless Tobacco Status: No Alcohol use: none Drug use: none - Family History Father Living Status: Hx Family Respiratory Disorders: Yes (Emphysema) Hx Family Neurologic Disorders: Yes (Stroke) Internal Medicine - H&P: Meds Aspirin 325 mg PO DAILY 11/28/16 [History] Finasteride [Proscar] 5 mg PO DAILY 11/28/16 [History] Fluticasone Propionate Nasal [Flonase] 1 spray NS BID PRN 11/28/16 [History] Allopurinol [Zyloprim 300 MG] 300 mg PO HS #30 tablet 12/20/16 [Rx] Magic Mouthwash [Magic Mouthwash BLM] 10 ml PO QID PRN #240 ml 05/01/18 [Rx] OxyCODONE Immed Rel [Roxicodone 10 MG] 10 mg PO Q4H PRN 08/13/18 [History] Budesonide/Formoterol 160/4.5 [Symbicort 160/4.5] 2 puff IH BIDR 10/08/18 [History] Dexamethasone 2 mg PO QAM 10/08/18 [History] FentaNYL PATCH [Duragesic] 75 mcg TD Q72H 10/08/18 [History] Furosemide [Lasix] 20 mg PO DAILY 10/08/18 [History] LORazepam [Ativan] 0.5 mg PO Q6H PRN 10/08/18 [History] Ondansetron HCl [Zofran] 4 mg PO Q4H PRN 10/08/18 [History] Sennosides/Docusate Sodium [Senna-S Tablet] 1 - 2 tab PO DAILY PRN 10/08/18 [History] Allergy/AdvReac Type Severity Reaction Status Date / Time Penicillins Allergy Difficulty Verified 10/08/18 13:32 Swallowing All systems: reviewed and no additional remarkable complaints except as stated - Constitutional Constitutional ROS PAL: decreased appetite - Cardiovascular Cardiovascular ROS: no chest pain, no chest pain at rest - Respiratory Respiratory: cough, no dyspnea, no dyspnea on exertion - Gastrointestinal Gastrointestinal: constipation, no abdominal pain - Genitourinary Genitourinary ROS male: no dysuria - Neurological Neurological ROS: no abnormal gait, no focal weakness - Psychiatric Psychiatric general PM: no anxiety Palliative Care-Exam - Constitutional Vitals: Temp Pulse Resp BP Pulse Ox 97.4 F L 81 15 126/67 98 10/08/18 12:00 10/08/18 12:00 10/08/18 12:00 10/08/18 12:00 10/08/18 12:00 General appearance: Present: cooperative, thin - Head Head Exam: Present: atraumatic, normal inspection - Eye Eye exam: Present: EOMI - ENT ENT exam: Present: mucous membranes moist, normal exam Additional comments: hearing loss - Neck Neck exam: Present: normal inspection - Respiratory Respiratory exam: Present: decreased breath sounds. Absent: accessory muscle use, chest wall tenderness - Cardiovascular Cardiovascular exam: Present: RRR, +S1, +S2 - GI/Abdominal Exam GI/Abdominal exam: Present: normal bowel sounds, soft. Absent: tenderness - Extremities Exam Extremities exam: Present: full ROM Additional comments: 2+ edema to the knees - Back Exam Additional comments: soft tissue mass iunder the tip of the L scapula, tender to touch - Neurological Exam Neurological exam: Present: alert, oriented X3, no focal deficits Palliative Quality Palliative Quality: Screen for Code Status: Yes, Screen for Goals of Care: Yes, Screen for Pain: Yes, If Pain Regimen Started, Initiate Bowel Regimen: Yes, Screen for Nausea/Vomitting: Yes Code Status: 05/15/19 13:47 Resuscitation Status: Active [RES] Routine Comment: Resuscitation Status: DNR-Comfort Care
[2018-10-08] MEDS ORDERED: *HR* FentaNYL PATCH 75 MCG PATCH TD SCH (15:00)
--- NOTE | 2018-10-08 15:03 | AcuteCare Surgery Consult Note ---
<OlesyakeltonYasmin N - Last Filed: 10/08/18 15:52> Date of Encounter: 10/08/18 Time of Encounter: 15:08 Assessment and Plan (1) Mass of chest wall, left Current Visit: Yes Status: Acute Left posterolateral chest wall mass which patient reports is similar to prior presentation. 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 Patient previously had a chest tube placement for his pleural effusion in July 2018 by cardiothoracic surgery. Recommend obtaining a CT scan of the chest to further evaluate for this chest wall mass prior to any surgical interventions. Acute care surgery will continue to follow. History of Present Illness Consult date: 10/08/18 History of present illness: Patient is a 58-year-old man who is currently in hospice for a history of small cell lung cancer. Patient previously had a pleural catheter in place for a malignant effusion in the left chest wall which was subsequently removed. Patient was recently admitted to the hospital in July 2018 after he experienced fluid leak from the prior catheter site. Imaging studies at that time revealed a large left-sided pleural effusion along with subcutaneous edema of the lateral aspect of the chest wall. Cardiovascular surgery was consulted and evaluated the patient and noted "acute drainage of old bloody fluid from the chest wall where his lung cancer is growing through the chest wall". Left-sided chest tube was placed to drain the fluid and was removed prior to discharge 5 days later. Since discharge patient reports progressive swelling along the left lateral chest wall. He states this "feels exactly like the last time when he had to have fluid drained". There is a large approximately 6-8 cm in diameter mass on the lateral posterior aspect of the left chest wall that is mildly tender to palpation. Past Med Surg Social Fam HX - Past Medical History Medical history: arthritis, CHF, COPD, diabetes, hypertension, TIA Additional medical history: left overlapping lung cancer Psychiatric history: no psych history - Past Surgical History Surgical History: appendectomy, herniorrhaphy Additional surgical history: Right Shoulder Scope. chest tube placed and removed - Social History Smoking Status: Current every day smoker Smokeless Tobacco Status: No Alcohol use: none Drug use: none - Family History Father Living Status: Hx Family Respiratory Disorders: Yes (Emphysema) Hx Family Neurologic Disorders: Yes (Stroke) Medications and Allergies Aspirin 325 mg PO DAILY 11/28/16 [History] Finasteride [Proscar] 5 mg PO DAILY 11/28/16 [History] Fluticasone Propionate Nasal [Flonase] 1 spray NS BID PRN 11/28/16 [History] Allopurinol [Zyloprim 300 MG] 300 mg PO HS #30 tablet 12/20/16 [Rx] Magic Mouthwash [Magic Mouthwash BLM] 10 ml PO QID PRN #240 ml 05/01/18 [Rx] OxyCODONE Immed Rel [Roxicodone 10 MG] 10 mg PO Q4H PRN 08/13/18 [History] Budesonide/Formoterol 160/4.5 [Symbicort 160/4.5] 2 puff IH BIDR 10/08/18 [History] Dexamethasone 2 mg PO QAM 10/08/18 [History] FentaNYL PATCH [Duragesic] 75 mcg TD Q72H 10/08/18 [History] Furosemide [Lasix] 20 mg PO DAILY 10/08/18 [History] LORazepam [Ativan] 0.5 mg PO Q6H PRN 10/08/18 [History] Ondansetron HCl [Zofran] 4 mg PO Q4H PRN 10/08/18 [History] Sennosides/Docusate Sodium [Senna-S Tablet] 1 - 2 tab PO DAILY PRN 10/08/18 [History] Allergy/AdvReac Type Severity Reaction Status Date / Time Penicillins Allergy Difficulty Verified 10/08/18 13:32 Swallowing Review of Systems All systems PM: The remainder of the systems were reviewed and are negative - Constitutional no chills, no fever(s) - Cardiovascular no chest pain - Respiratory no dyspnea - Gastrointestinal no abdominal pain, no nausea, no vomiting - Genitourinary no dysuria - Musculoskeletal myalgias - Integumentary no rash General Surgery Exam Initial Vital Signs Temp Pulse Resp BP Pulse Ox 97.4 F L 81 15 126/67 98 10/08/18 12:00 10/08/18 12:00 10/08/18 12:00 10/08/18 12:00 10/08/18 12:00 - General physical appearance cachectic - Eyes PERRL, normal ocular movement - ENT normal pinna, normal nares - Neck trachea midline, no venous distension - Respiratory normal expansion, normal respiratory effort, other (Diminished breath sounds in the left base. There is a 6-8 cm in diameter mass involving the soft tissues of the posterior lateral chest wall.) - Cardiovascular Cardiovascular exam: Present: RRR - Abdomen Abdomen general surgery: Present: bowel sounds present, soft, non tender - Integumentary Integumentary general surgery: Present: warm and dry - Musculoskeletal Present: other (Pitting edema of the lower extremity's bilaterally) Exam Initial Vital Signs Temp Pulse Resp BP Pulse Ox 97.4 F L 81 15 126/67 98 10/08/18 12:00 10/08/18 12:00 10/08/18 12:00 10/08/18 12:00 10/08/18 12:00 Results - Labs All other labs normal. Consult Discharge Plan - Plan Referrals: NONE,PCP [Primary Care Provider] - <Jamir Browning - Last Filed: 10/08/18 21:05> Date of Encounter: 10/08/18 Review of Systems All systems PM: The remainder of the systems were reviewed and are negative General Surgery Exam Initial Vital Signs Temp Pulse Resp BP Pulse Ox 97.4 F L 81 15 126/67 98 10/08/18 12:00 10/08/18 12:00 10/08/18 12:00 10/08/18 12:00 10/08/18 12:00 Exam Initial Vital Signs Temp Pulse Resp BP Pulse Ox 97.4 F L 81 15 126/67 98 10/08/18 12:00 10/08/18 12:00 10/08/18 12:00 10/08/18 12:00 10/08/18 12:00 Results - Labs All other labs normal. - Attending Attestation Patient seen and examined. i have reviewed all labs, imaging, and notes pertinent to this case. i have reviewed the case with the resident. i agree with the above assessment and plan and wish to include the following... 58M with h/o lung cancer complicated by malignant pleural effusion that is tracking into the soft tissues of his back; although patient is having discomf ort, this isn't as simple as drainage and there will be resolution of the issue as there appears to be a tract that allows flow of this effusion and likely causes it to reaccumulate; strongly recommend evaluation with thoracic surgery for further evaluation; general surgery will sign off; please call with any new questions or concerns;
[2018-10-08] MEDS: Nicotine 21 MG PATCH.TD24 TD SCH (19:04)
[2018-10-08] MEDS: Budesonide/Formoterol 160/4.5 1 PUFF INH IH SCH (20:13)
[2018-10-08] MEDS: Sennosides/Docusate Sodium TABLET PO SCH (22:50)
[2018-10-09] MEDS: Budesonide/Formoterol 160/4.5 1 PUFF INH IH SCH (07:37)
[2018-10-09] MEDS: *HR* OxyCODONE Immed Rel 5 MG TABLET PO PRN ×2 (07:46→11:45)
[2018-10-09] MEDS: Sennosides/Docusate Sodium TABLET PO SCH (07:47)
[2018-10-09] MEDS: Nicotine 21 MG PATCH.TD24 TD SCH (07:47)
[2018-10-09] MEDS ORDERED: Fluticasone Propionate Nasal 50 MCG/SPRAY BOTTLE NS SCH (09:00)
[2018-10-09] MEDS ORDERED: Finasteride 5 MG TABLET PO SCH (09:00)
[2018-10-09] MEDS ORDERED: Furosemide 40 MG TABLET PO SCH (09:00)
[2018-10-09] MEDS ORDERED: Aspirin 325 MG TABLET PO SCH (09:00)
[2018-10-09 11:05] VITALS: BP 106/67
--- NOTE | 2018-10-09 13:21 | Discharge Summary ---
<Guido Santos - Last Filed: 10/09/18 14:02> - NOTES TO OUTPATIENT PROVIDER Notes to Outpatient Provider: Mr Miller was admitted on 10/08/18 for left chest wall mass. He was evaluated by the surgery team, who recommended CT chest for further evaluation of the mass. CT was suggestive of a fistula between pleural space and subcutaneous tissue. No drainable fluid collection was identified. Cardiothoracic surgery reviewed CT results and determined surgical intervention was not appropriate. Discussed these recommendations with patient. To be discharged home with no change in medications, continuing with home hospice. Date of Encounter: 10/09/18 Time of Encounter: 11:00 - Discharge Diagnosis (1) Mass of chest wall, left Priority: Primary Status: Acute Comments: Was evaluated by surgery who suggested CT chest for further analysis of mass CT showed moderate left pleural effusion with likely fistula to subcuaneous tissue of chest. 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 No drainable fluid collection. Spoke with cardiothoracic surgery who reviewed the images and reported surgical intervention would be of no benefit. Discussed these recommendations with the patient who was agreeable to monitoring the mass at home. Trial lidocaine patch daily over mass for further pain relief likely related to pressure (2) Cancer related pain Priority: Secondary Status: Chronic Comments: Pt had worsening pain on admission, however pain is controlled at this time. Continue home medication regimen as follows: - Fentanyl patch 75mcg - Oxycodone 10mg q4hr pain - Decadron 2mg daily (3) Cancer of overlapping sites of left lung Priority: Secondary Status: Chronic Comments: Pt on hospice prior to admission. All interventions are comfort related at this time (4) Hospice care Priority: Secondary Status: Acute (5) Peripheral edema Priority: Secondary Status: Acute Comments: Pt was given 40mg Lasix daily while admitted for increased peripheral edema. Pt reports edema has improved during admission and is accompanied by frequent urination. Will resume home dose of 20mg Lasix daily on discharge. (6) COPD (chronic obstructive pulmonary disease) Priority: Secondary Status: Chronic Comments: No signs of acute exacerbation such as fever, chills, increased cough, or change in sputum production Continue home meds Qualifiers: COPD type: COPD with acute lower respiratory infection Qualified Code(s): J44.0 - Chronic obstructive pulmonary disease with acute lower respiratory infection (7) Tobacco abuse Priority: Secondary Status: Chronic Comments: Pt does not want to continue Nicotine patch at home. Reports he will continue to smoke cigarettes on discharge. - Hospital Course Hospital course: Mr. Miller is a 58 year old male - Time Spent with Patient Total time spent providing and/or coordinating discharge services: - Discharge Medications Prescriptions: New Lidocaine Patch [Lidoderm 5% patch] 1 each TP DAILY 30 Days #30 adh..patch Continued Aspirin 325 mg PO DAILY Fluticasone Propionate Nasal [Flonase] 1 spray NS BID PRN PRN Reason: Allergy Symptoms Finasteride [Proscar] 5 mg PO DAILY Allopurinol [Zyloprim 300 MG] 300 mg PO HS #30 tablet Magic Mouthwash [Magic Mouthwash BLM] 10 ml PO QID PRN #240 ml PRN Reason: Mouth Sore Pain OxyCODONE Immed Rel [Roxicodone 10 MG] 10 mg PO Q4H PRN PRN Reason: Pain Budesonide/Formoterol 160/4.5 [Symbicort 160/4.5] 2 puff IH BIDR Dexamethasone 2 mg PO QAM FentaNYL PATCH [Duragesic] 75 mcg TD Q72H Furosemide [Lasix] 20 mg PO DAILY LORazepam [Ativan] 0.5 mg PO Q6H PRN PRN Reason: Anxiety Ondansetron HCl [Zofran] 4 mg PO Q4H PRN PRN Reason: Nausea Sennosides/Docusate Sodium [Senna-S Tablet] 1 - 2 tab PO DAILY PRN PRN Reason: Constipation Home Medications: Aspirin 325 mg PO DAILY 11/28/16 [History] Finasteride [Proscar] 5 mg PO DAILY 11/28/16 [History] Fluticasone Propionate Nasal [Flonase] 1 spray NS BID PRN 11/28/16 [History] Allopurinol [Zyloprim 300 MG] 300 mg PO HS #30 tablet 12/20/16 [Rx] Magic Mouthwash [Magic Mouthwash BLM] 10 ml PO QID PRN #240 ml 05/01/18 [Rx] OxyCODONE Immed Rel [Roxicodone 10 MG] 10 mg PO Q4H PRN 08/13/18 [History] Budesonide/Formoterol 160/4.5 [Symbicort 160/4.5] 2 puff IH BIDR 10/08/18 [History] Dexamethasone 2 mg PO QAM 10/08/18 [History] FentaNYL PATCH [Duragesic] 75 mcg TD Q72H 10/08/18 [History] Furosemide [Lasix] 20 mg PO DAILY 10/08/18 [History] LORazepam [Ativan] 0.5 mg PO Q6H PRN 10/08/18 [History] Ondansetron HCl [Zofran] 4 mg PO Q4H PRN 10/08/18 [History] Sennosides/Docusate Sodium [Senna-S Tablet] 1 - 2 tab PO DAILY PRN 10/08/18 [History] Lidocaine Patch [Lidoderm 5% patch] 1 each TP DAILY 30 Days #30 adh..patch 10/09/18 [Rx] Allergies/Adverse Reactions: Allergy/AdvReac Type Severity Reaction Status Date / Time Penicillins Allergy Difficulty Verified 10/08/18 13:32 Swallowing Internal Medicine - DS: Prov Date of admission: 10/08/18 10:54 Primary care physician: PCP NONE Admitting clinician: Maria Victoria Anthony Consults: 10/08/18 13:47 Consult to Palliative Care [CONS] Routine Comment: Consulting Provider: Palliative Care Danelle Reason for Consult: hospice Time Notified: 13:53 Call Completed: Yes 10/08/18 14:03 Consult to Surgery [CONS] Routine Consulting Provider: Maria Victoria Anthony Reason for Consult: mass on left back. Time Notified: 14:06 Call Completed: Yes Discharging clinician: Maria Victoria Anthony Internal Medicine - DS: Exam - Constitutional Vitals: Vital Signs Temp Pulse Resp BP Pulse Ox 10/09/18 11:03 97.8 F 63 18 106/67 98 10/09/18 07:37 16 95 10/09/18 07:08 98.0 F 74 16 111/64 95 10/09/18 03:44 97.6 F 67 16 134/77 97 10/09/18 00:02 97.9 F 70 16 143/84 97 10/08/18 20:14 14 97 10/08/18 19:46 98 F 96 16 118/75 Intake and Output 10/08/18 10/09/18 10/09/18 23:59 07:59 15:59 Intake Total 480 / 480 Balance 480 / 480 Intake: Oral 480 / 480 Other: Meal Dinner Percent of Meal Consumed 65% General appearance: average body habitus, cooperative, no acute distress Additional comments: Head: NCAT Heart: RRR +s1 +s2 Lungs: CTA bilaterally. non-labored breathing Back: firm approximately 8cm in diameter circular mass on left back just inferior to the scapula. no erythema or fluctuance of mass. Extremities: warm, radial pulses palpable and symmetrical. No edema or cyanosis Neuro: A&Ox3. somewhat hard of hearing. Ambulation normal and without difficulty. Normal speech. No focal deficits. Skin: warm, dry, intact - Impressions ITS Impressions Chest CT 10/08/18 15:38 IMPRESSION: Moderate left pleural effusion. Air-fluid level is likely related to a fistula. Tracts are seen along the subcutaneous chest wall both anteriorly and posteriorly. Alternatively findings could be related to a bronchopleural fistula given the degree of bronchiectasis and scarring. D/ / 10/08/2018 18:25:50 Syd Rios MD / [place] Interpreting Provider: Syd Rios MD - Patient Status Disposition: Hospice - Home Condition: Good Functional capacity at discharge: independent ambulation Overall status at discharge: patient is back to baseline - Discharge Instructions Follow Up With: NONE,PCP [Primary Care Provider] - - Diet and Activity Activity: resume usual activities as tolerated Diet: regular diet <Maria Victoria Anthony - Last Filed: 10/09/18 15:11> Date of Encounter: 10/09/18 - Discharge Diagnosis (1) Mass of chest wall, left Status: Acute (2) Hospice care Status: Acute (3) Cancer of overlapping sites of left lung Status: Acute (4) Cancer related pain Status: Chronic (5) Peripheral edema Status: Acute (6) COPD (chronic obstructive pulmonary disease) Status: Chronic Qualifiers: COPD type: COPD with acute lower respiratory infection Qualified Code(s): J44.0 - Chronic obstructive pulmonary disease with acute lower respiratory infection - Hospital Course Hospital course: Mr. Miller is a 58 year old male - Time Spent with Patient Total time spent providing and/or coordinating discharge services: Internal Medicine - DS: Prov Date of admission: 10/08/18 10:54 Primary care physician: PCP NONE Consults: 10/08/18 13:47 Consult to Palliative Care [CONS] Routine Comment: Consulting Provider: Palliative Care Danelle Reason for Consult: hospice Time Notified: 13:53 Call Completed: Yes 10/08/18 14:03 Consult to Surgery [CONS] Routine Consulting Provider: Maria Victoria Anthony Reason for Consult: mass on left back. Time Notified: 14:06 Call Completed: Yes Internal Medicine - DS: Exam - Constitutional Vitals: Vital Signs Temp Pulse Resp BP Pulse Ox 10/09/18 11:03 97.8 F 63 18 106/67 98 10/09/18 07:37 16 95 10/09/18 07:08 98.0 F 74 16 111/64 95 10/09/18 03:44 97.6 F 67 16 134/77 97 10/09/18 00:02 97.9 F 70 16 143/84 97 10/08/18 20:14 14 97 10/08/18 19:46 98 F 96 16 118/75 Intake and Output 10/08/18 10/09/18 10/09/18 23:59 07:59 15:59 Intake Total 480 / 480 480 / 480 Balance 480 / 480 480 / 480 Intake: Oral 480 / 480 480 / 480 Other: Meal Dinner Breakfast Percent of Meal Consumed 65% 100% - Impressions ITS Impressions Chest CT 10/08/18 15:38 IMPRESSION: Moderate left pleural effusion. Air-fluid level is likely related to a fistula. Tracts are seen along the subcutaneous chest wall both anteriorly and posteriorly. Alternatively findings could be related to a bronchopleural fistula given the degree of bronchiectasis and scarring. D/ / 10/08/2018 18:25:50 Syd Rios MD / [place] Interpreting Provider: Syd Rios MD - Attending Attestation I performed a history and physical examination of the patient and discussed his management with the resident. I reviewed the residents note and agree with the documented findings and plan of care, adding as follow: Discussed current findings and recommendations with patient, patient is relieved that there is no imminent risk of the mass bursting open, declined follow up with radiation oncology, and wants to continue pain management only. Patient also requesting to return home today. Patient is stable for discharge, to continue current pain medication. Added Lidocaine patch to mass. Smoking cessation was discussed, patient declined nicotine patch, not willing to quit.
--- NOTE | 2018-10-09 13:54 | Event Note ---
Date of Encounter: 10/09/18 Time of Encounter: 10:30 CT results reviewed: CT/CT chest wo con IMPRESSION: Moderate left pleural effusion. Air-fluid level is likely related to a fistula. Tracts are seen along the subcutaneous chest wall both anteriorly and posteriorly. Alternatively findings could be related to a broncho-pleural fistula given the degree of bronchiectasis and scarring. Surgery consult appreciated, no simple drainage lesion, recommend thoracic surgery consult. Called Dr. Jeuss, he is familiar with patient from previous admissions. He states from a cardiothoracic point of view, no intervention is warranted, recommend follow up with radiation oncology. Discussed current findings and recommendations with patient, patient is relieved that there is no imminent risk of the mass bursting open, declined follow up with radiation oncology, and wants to continue pain management only. Patient also requesting to return home today. Patient is stable for discharge, to continue current pain medication. Added Lidocaine patch to mass. Smoking cessation was discussed, patient declined nicotine patch, not willing to quit.
[2018-10-10] MEDS ORDERED: *HR* FentaNYL PATCH 75 MCG PATCH TD SCH (08:00)
== END 2018-10-09 14:39 | disposition hospice, home (50) | DRG 951 ==
LOC: 2ANU 10:54
PROVIDERS: ADMIT Internal Medicine Hospice and Palliative Medicine; ATTEND Internal Medicine Hospice and Palliative Medicine